=== PATIENT | female | born 1975 | race Caucasian/White ===

== ENCOUNTER 2019-08-15 14:21 | Outpatient (CLI) | payer OTHER, BC, SELFPAY ==
[2019-08-15 14:57] LABS: Basophils Percent Auto 0.3 % (0.2-1.2); Eosinophils Absolute Auto 0.1 K/mm3 (0-0.3); Eosinophils Percent Auto 1.4 % (0-4.4); Hematocrit 39.7 % (37.0-47.0); Immature Granulocyte Absolute 0.05 K/mm3 (0.00-0.031); Immature Granulocyte Percent A 0.5 % (0-0.5); Lymphocytes Absolute Auto 3.39 K/mm3 (0.9-3.2); Lymphocytes Percent Auto 37.1 % (18.3-44.2); Mean Corpuscular HGB Conc 32.7 g/dl (32-36); Mean Corpuscular Hemoglobin 26.4 pg (26-34); Mean Corpuscular Volume 80.5 fl (80-100); Mean Platelet Volume 8.8 fl (7.4-10.4); Monocytes Absolute Auto 0.3 K/mm3 (0.1-0.6); Monocytes Percent Auto 3.6 % (2.6-8.5); Neutrophils Absolute Auto 5.2 K/mm3 (1.3-6.7); Neutrophils Percent Auto 57.1 % (45.5-73.1); Platelet Count Result 357 k/mm3 (150-375); Red Blood Count 4.93 M/mm3 (4.2-5.4); Red Cell Distribution Width 14.2 % (11.5-14.5); White Blood Count 9.1 K/mm3 (4.5-10.0)
[2019-08-15 15:11] LABS: Blood Urea Nitrogen 12 mg/dL (7-17); Calcium 8.6 mg/dL (8.4-10.2); Carbon Dioxide 24 mmol/L (22-30); Chloride 104 mmol/L (98-107); Estimated Glomerular Filt Rate > 60; Glucose 135 mg/dL (65-105); Potassium 3.5 mmol/L (3.4-5.0); Sodium 138 mmol/L (137-145)
[2019-08-17 16:54] LABS: Immunoglobulin E 119 kU/L (<=114)
[2019-08-17 18:40] LABS: CMV IgM Antibody <30.00 AU/mL (<30.00)
[2019-08-17 22:29] LABS: Immunoglobulin G, Serum 912 mg/dL (600-1640); Immunoglobulin G1 430 mg/dL (382-929); Immunoglobulin G2 412 mg/dL (241-700); Immunoglobulin G3 39 mg/dL (22-178); Immunoglobulin G4 31.7 mg/dL (4.0-86.0)
[2019-08-18 12:24] LABS: CMV IgG Antibody >10.00 U/mL (<0.60)
[2019-08-18 18:33] LABS: EBV Nuclear Ab Interpretation Past; EBV Virus Capsid Ag IgM Ab <36.00 U/mL (<36.00)
== END 2019-08-15 14:22 | disposition home or self-care (01) ==
LOC: ANHLAB 14:26
PROVIDERS: Nurse Practitioner Family; PCP Family Medicine; Visit Provider Internal Medicine Critical Care Medicine
DX: J10.1 Influenza due to other identified influenza virus with other respiratory manifestations (principal); J45.909 Unspecified asthma, uncomplicated; B99.9 Unspecified infectious disease; Z87.09 Personal history of other diseases of the respiratory system
CPT/HCPCS: 36415; 80048; 82784; 82785; 82787; 85025; 86644; 86645; 86664; 86665

== ENCOUNTER 2019-10-22 10:29 | Outpatient (CLI) | payer OTHER, BC, SELFPAY ==
[2019-10-25 00:03] LABS: Immunoglobulin G, Serum 822 mg/dL (600-1640); Immunoglobulin G1 375 mg/dL (382-929); Immunoglobulin G2 366 mg/dL (241-700); Immunoglobulin G3 38 mg/dL (22-178); Immunoglobulin G4 29.9 mg/dL (4.0-86.0)
--- NOTE | 2019-10-28 14:08 | WPDPFTINT ---
PFT Interpretation PFT Interpretation: DOS: 10/22/2019 REQUESTING: Dr Murray REASON FOR TESTING: Shortness of breath PULMONARY FUNCTION TESTS Results are reproducible. Spirometry: FEV1 is 88% normal. FVC 84% normal. FEV 1% is normal. No change with bronchodilator. Lung volumes: TLC 84% normal. RV 73% normal. ERV is 21% low most likely due to increased BMI. Airway resistance is minimally increased 144%. Diffusion: DLCO 56% moderately reduced. Flow volume loop: Normal. IMPRESSION: Compared to a prior study 10/20/2015, values are similar. Normal spirometry and normal lung volumes with worsening of the diffusion defect. DLCO is 56% moderately reduced, 4 years ago 68% mildly reduced. isolated decrease in diffusion can be due to anemia, collagen vascular disease with pulmonary vascular involvement, chronic thromboembolic disease and early ILD. NIOX: Exhaled nitric oxide is 9 parts per billion, normal. No evidence of increased airway resistance. Rosette Murray MD
== END 2019-10-22 10:30 | disposition home or self-care (01) ==
PROVIDERS: PCP Family Medicine; Visit Provider Internal Medicine Critical Care Medicine
DX: J32.9 Chronic sinusitis, unspecified (principal); J45.909 Unspecified asthma, uncomplicated; R94.2 Abnormal results of pulmonary function studies
CPT/HCPCS: 36415; 82784; 82785; 82787; 86003; 94060; 94375; 94729; 95012

== ENCOUNTER 2019-10-23 09:47 | Outpatient (CLI) | payer OTHER, BC, SELFPAY ==
[2019-10-23 10:14] LABS: Blood Urea Nitrogen 15 mg/dL (7-17); Carbon Dioxide 24 mmol/L (22-30); Chloride 106 mmol/L (98-107); Estimated Glomerular Filt Rate > 60; Glucose 99 mg/dL (65-105); Potassium 4.5 mmol/L (3.4-5.0); Sodium 139 mmol/L (137-145)
== END 2019-10-23 09:48 | disposition home or self-care (01) ==
PROVIDERS: PCP Family Medicine; Visit Provider Nurse Practitioner Family
DX: M79.673 Pain in unspecified foot (principal); R20.2 Paresthesia of skin; R73.09 Other abnormal glucose
CPT/HCPCS: 36415; 80048; 82607; 83735

== ENCOUNTER 2019-12-26 09:54 | Outpatient (CLI) | payer OTHER, BC, SELFPAY ==
--- NOTE | 2019-12-26 11:00 | NEURO_ITS ---
Patient Number: [id number] Impression: # Complains of restless legs and pain in legs. # Normal motor and sensory nerve conduction study. # Normal needle/EMG exam without evidence of denervation potentials, fibrillations or myotonia. # Clinical correlation recommended. Nerve Conduction Studies Anti Sensory Summary Table Stim Site NR Peak (ms) P-T Amp (?V) Site1 Site2 Delta-P (ms) Dist (cm) Red (m/s) Left Sup Fibular Anti Sensory (Ant Lat Mall) 14 cm 3.6 20.5 14 cm Ant Lat Mall 3.6 16.0 44 Right Sup Fibular Anti Sensory (Ant Lat Mall) 14 cm 3.4 22.6 14 cm Ant Lat Mall 3.4 16.0 47 Left Sural Anti Sensory (Lat Mall) Calf 4.3 11.1 Calf Lat Mall 4.3 18.0 42 Right Sural Anti Sensory (Lat Mall) Calf 3.9 6.7 Calf Lat Mall 3.9 16.0 41 Motor Summary Table Stim Site NR Onset (ms) O-P Amp (mV) Site1 Site2 Delta-0 (ms) Dist (cm) Red (m/s) Left Peroneal Motor (Vastus Med) Ankle 4.6 4.6 Popit Ankle 8.8 38.0 43 Popit 13.4 4.4 Right Peroneal Motor (Vastus Med) Ankle 4.3 2.5 Popit Ankle 8.6 39.0 45 Popit 12.9 2.3 Left Tibial Motor (Abd Cardenas Brev) Ankle 4.8 2.8 Knee Ankle 10.1 41.0 41 Knee 14.9 1.9 Right Tibial Motor (Abd Cardenas Brev) Ankle 5.2 3.9 Knee Ankle 9.9 40.0 40 Knee 15.1 1.3 F Wave Studies NR F-Lat (ms) L-R F-Lat (ms) Left Peroneal (Mrkrs) (EDB) 52.03 0.77 Right Peroneal (Mrkrs) (EDB) 52.80 0.77 Left Tibial (Mrkrs) (Abd Hallucis) 51.98 0.35 Right Tibial (Mrkrs) (Abd Hallucis) 52.34 0.35 EMG Side Muscle Nerve Root Ins Act Fibs Amp Dur Recrt Comment Right AntTibialis Dp Br Fibular L4-5 Nml Nml Nml Nml Nml Right Gastroc Tibial S1-2 Nml Nml Nml Nml Nml Right Fibularis Long Sup Br Fibular L5-S1 Nml Nml Nml Nml Nml Right Flex Dig Long Tibial L5-S2 Nml Nml Nml Nml Nml Right Ext Dig Brev Dp Br Fibular L5, S1 Nml Nml Nml Nml Nml Left AntTibialis Dp Br Fibular L4-5 Nml Nml Nml Nml Nml Left Gastroc Tibial S1-2 Nml Nml Nml Nml Nml Left Fibularis Long Sup Br Fibular L5-S1 Nml Nml Nml Nml Nml Left Flex Dig Long Tibial L5-S2 Nml Nml Nml Nml Nml Left Ext Dig Brev Dp Br Fibular L5, S1 Nml Nml Nml Nml Nml Right QuadratusFem QuadFemoris L4-5, S1 Nml Nml Nml Nml Nml Left QuadratusFem QuadFemoris L4-5, S1 Nml Nml Nml Nml Nml MTDD
== END 2019-12-26 09:55 | disposition home or self-care (01) ==
LOC: ANHNEURO 09:56
PROVIDERS: PCP Family Medicine; Visit Provider Nurse Practitioner Family
DX: M79.673 Pain in unspecified foot (principal)
CPT/HCPCS: 95886; 95910

== ENCOUNTER 2020-02-13 14:03 | Outpatient (CLI) | payer OTHER, BC, SELFPAY ==
--- NOTE | ~2020-02-13 | US_ITS ---
EXAMINATION: US art doppler w press LE DATE: 02/13/2020 14:43 INDICATION: Raynaud's syndrome without gangrene. TECHNIQUE: Segmental pressures and plethysmographic and Doppler waveforms of the brachial and lower e xtremity arteries were obtained. COMPARISON: None. FINDINGS: Right and left brachial artery pressures of 130 mm Hg and 121 mm Hg, respectively, are concordant (no rmal difference <= 30 mmHg). The right high-thigh pressure index is 1.45 (normal > 1.2). The right ankle-brachial index (TIFFANIE) is 1 .02 (normal >= 0.9-1.0). The right great toe-brachial index (TBI) is 0.94 (normal >= 0.65). Arterial Doppler waveforms are biphasic from common femoral artery to the ankle. The left high-thigh pressure index is 1.36. The left TIFFANIE is 1.05. The left TBI is 1.03. Arterial Dopp ler waveforms are biphasic from common femoral artery to the ankle. IMPRESSION: 1. No significant arterial occlusive disease. Reviewed, dictated and finalized at location A.
== END 2020-02-13 14:04 | disposition home or self-care (01) ==
LOC: ANHIMG 14:06
PROVIDERS: PCP Family Medicine; Visit Provider Nurse Practitioner Family
DX: G62.9 Polyneuropathy, unspecified (principal); I73.00 Raynaud's syndrome without gangrene; L40.50 Arthropathic psoriasis, unspecified
CPT/HCPCS: 93923

== ENCOUNTER 2020-02-21 07:31 | Outpatient (CLI) | payer OTHER, BC, SELFPAY ==
--- NOTE | ~2020-02-21 | CT_ITS ---
EXAMINATION: CT chest high resolution wo ar DATE: 02/21/2020 07:50 INDICATION: Pulmonary fibrosis. Abnormal pulmonary function tests. Asthma. TECHNIQUE: Computed tomography (CT) of the chest was performed without intravenous contrast. The dose -length product was 760.96 mGy-cm. Automated exposure control and iterative reconstruction technique were employed. COMPARISON: CT dated 09/21/2018 FINDINGS: Heart size normal. No thoracic lymphadenopathy. No significant pleural or pericardial effus ion. No significant vascular abnormality. No focal airspace consolidation. No pneumothorax. No endobr onchial lesions. No pulmonary nodules or masses. No osteolytic or osteoblastic lesions are identified . Mild-moderate thoracic spondylosis. IMPRESSION: 1. No significant cardiopulmonary disease. Reviewed, dictated and finalized at location A.
== END 2020-02-21 07:32 | disposition home or self-care (01) ==
PROVIDERS: PCP Family Medicine; Visit Provider Internal Medicine Critical Care Medicine
DX: R94.2 Abnormal results of pulmonary function studies (principal)
CPT/HCPCS: 71250

== ENCOUNTER 2020-09-02 14:44 | Outpatient (CLI) | payer OTHER, BC, SELFPAY ==
--- NOTE | ~2020-09-02 | XR_ITS ---
XR knee RT 3V DATE: 09/02/2020 15:06 INDICATION: Right knee pain, generalized TECHNIQUE: 3 views, sunrise, AP and lateral COMPARISON: None FINDINGS: There is minimal periarticular spurring of the patella consistent with osteoarthritis. Join t spaces are preserved. No fracture or dislocation or joint effusion. No periosteal reaction or bone destruction. No radiopaq ue intra-articular loose body or chondrocalcinosis. IMPRESSION: Mild osteoarthritis at the patellofemoral joint Reviewed, dictated and finalized at location A.
== END 2020-09-02 14:45 | disposition home or self-care (01) ==
PROVIDERS: PCP Family Medicine; Visit Provider Nurse Practitioner Family
DX: M25.561 Pain in right knee (principal); M17.11 Unilateral primary osteoarthritis, right knee
CPT/HCPCS: 73562

== ENCOUNTER 2020-12-23 09:37 | Outpatient (CLI) | payer OTHER, BC, SELFPAY ==
--- NOTE | 2020-12-23 16:04 | P.PCNPFT_ITS ---
PFT Procedure Performed PFT Procedure Performed Spirometry with Pre/Post Bronchodilator Plethysmography (Lung Vol) Diffusing Cap (DLCO) Flow Vol Loop PFT Interpretation This is a pulmonary function test with pre and post-bronchodilator spirometry, plethysmography and diffusing capacity. The test was performed and results interpreted in accordance with the 2019 and 2005 ATS/ERS Task Force guidelines respectively using the Global Lung Function Initiative-2012 reference equations. Patient demonstrated good effort and cooperation. Reproducibility criteria were met. The quality of the pre bronchodilator spirometry maneuver was Grade B and post bronchodilator spirometry maneuver was Grade B. Findings: Spirometry:The contour of the inspiratory and expiratory flow tracing are normal. The pre bronchodilator FVC is 2.81 L, 71% predicted. The pre bronchodilator FEV1 is 2.21 L, 72% predicted. The FEV1: FVC ratio is 78%. The post bronchodilator FVC is 3.02 L, representing 7% increase. The post bronchodilator FEV1 is 2.48 L, representing a 12% increase. Plethysmography: The total lung capacity is 3.46 L, 64% predicted. Functional residual capacity is 0.77 L, 26% predicted. The residual volume is 0.61 L, 33% predicted. Diffusing capacity: The absolute diffusion capacity is 20.1, 84% predicted. Th e diffusing capacity corrected for alveolar volume is 5.39, 118% predicted. Impression: There is a mild restrictive ventilatory abnormality. The spirometry is normal without evidence of an obstructive abnormality. There is significant improvement after inhaling a single dose of albuterol. The diffusing capacity is normal. There are no prior studies for comparison
== END 2020-12-23 09:38 | disposition home or self-care (01) ==
PROVIDERS: PCP Family Medicine; Visit Provider Internal Medicine Critical Care Medicine
DX: J45.909 Unspecified asthma, uncomplicated (principal); R94.2 Abnormal results of pulmonary function studies
CPT/HCPCS: 94060; 94726; 94729

== ENCOUNTER 2020-12-30 14:06 | Outpatient (CLI) | payer OTHER, BC, SELFPAY ==
--- NOTE | ~2020-12-30 | XR_ITS ---
XR foot LT min 3V DATE: 12/30/2020 14:42 INDICATION: Polyarthralgia. Left foot pain. TECHNIQUE: 4 views COMPARISON: None FINDINGS: Plantar calcaneal enthesopathy, without associated erosive change or periostitis. There is mild osteoarthritis at the first metatarsophalangeal joint. No fracture, dislocation, periosteal reaction or bone destruction. IMPRESSION: Plantar calcaneal enthesopathy Mild osteoarthrosis at first metatarsophalangeal joint Reviewed, dictated and finalized at location B.
--- NOTE | ~2020-12-30 | XR_ITS ---
XR hand BI arthritis min 3V DATE: 12/30/2020 14:42 INDICATION: Bilateral hand pain. Polyarthralgia. TECHNIQUE: 4 views of each hand. COMPARISON: None FINDINGS: There is mild osteoarthritis at the left first metacarpophalangeal joint. No fracture or dislocation, periosteal reaction or bone destruction or erosive change of either hand is noted. IMPRESSION: Mild osteophyte is at left first metacarpophalangeal joint Reviewed, dictated and finalized at location B.
--- NOTE | ~2020-12-30 | XR_ITS ---
XR sacroiliac joints min 3V DATE: 12/30/2020 14:42 INDICATION: Polyarthralgia. Bilateral sacroiliac pain. TECHNIQUE: AP and bilateral oblique views COMPARISON: None FINDINGS: No fracture or dislocation, erosion or ankylosis at the sacroiliac joints. The pubic symphy sis is intact. Degenerative disc disease is noted in the lumbar spine, particularly at L4-5. IMPRESSION: No significant abnormality of the sacroiliac joints Reviewed, dictated and finalized at Location A. Reviewed, dictated and finalized at location B.
--- NOTE | ~2020-12-30 | XR_ITS ---
XR foot RT min 3V DATE: 12/30/2020 14:42 INDICATION: Polyarthralgia. Right foot pain. TECHNIQUE: 4 views COMPARISON: None FINDINGS: Plantar calcaneal enthesopathy without associated erosive change or periostitis. Mild osteophyte is at the first metatarsophalangeal joint. No fracture, dislocation, periosteal reaction or bone destruction or erosive change is noted. IMPRESSION: Plantar calcaneal enthesopathy Mild osteoarthrosis at first metatarsophalangeal joint Reviewed, dictated and finalized at location B.
== END 2020-12-30 14:07 | disposition home or self-care (01) ==
LOC: ANHIMG 14:12
PROVIDERS: PCP Family Medicine; Visit Provider Internal Medicine
DX: M19.032 Primary osteoarthritis, left wrist (principal); M19.031 Primary osteoarthritis, right wrist; M19.072 Primary osteoarthritis, left ankle and foot; M19.071 Primary osteoarthritis, right ankle and foot; M77.32 Calcaneal spur, left foot; M77.31 Calcaneal spur, right foot; M47.816 Spondylosis without myelopathy or radiculopathy, lumbar region
CPT/HCPCS: 72202; 73130; 73630

== ENCOUNTER 2021-01-15 10:02 | Outpatient (CLI) | payer OTHER, BC, SELFPAY ==
--- NOTE | ~2021-01-15 | XR_ITS ---
EXAMINATION: XR lumbar spine 2-3V DATE: 01/15/2021 10:29 INDICATION: Bilateral leg pain and numbness. TECHNIQUE: 3 views of lumbar spine were obtained. COMPARISON: Lumbar spine radiographs 06/05/2017 FINDINGS: There is 4 degrees levocurvature of thoracolumbar spine. There is mild chronic anterior wed ging of T11 vertebral body. There is mildly decreased disc height at T11-T12, T12-L1, and L2-L3 and m oderately decreased disc height at L3-L4 and L4-L5 with endplate remodeling. There is moderate to sev ere facet joint osteoarthritis in lower lumbar spine. IMPRESSION: 1. Stable moderate lumbar spondylosis. Reviewed, dictated and finalized at location B.
== END 2021-01-15 10:03 | disposition home or self-care (01) ==
PROVIDERS: PCP Family Medicine
DX: M54.9 Dorsalgia, unspecified (principal); L40.50 Arthropathic psoriasis, unspecified; M47.816 Spondylosis without myelopathy or radiculopathy, lumbar region
CPT/HCPCS: 72100

== ENCOUNTER 2021-04-02 10:08 | Outpatient (CLI) | payer OTHER, BC, SELFPAY ==
--- NOTE | ~2021-04-02 | XR_ITS ---
EXAMINATION: XR chest 2V DATE: 04/02/2021 10:33 INDICATION: Cough, unspecified TECHNIQUE: Frontal and lateral views of the chest are obtained COMPARISON: 05/10/2019 FINDINGS: The lungs are free of acute opacities. There is no pleural effusion or pneumothorax. The ca rdiomediastinal silhouette is normal. There is mild thoracic spondylosis. IMPRESSION: 1. No acute cardiopulmonary abnormality. Reviewed, dictated and finalized at location B.
== END 2021-04-02 10:09 | disposition home or self-care (01) ==
LOC: ANHIMG 10:12
PROVIDERS: PCP Family Medicine; Visit Provider Nurse Practitioner Family
DX: R05.9 Cough, unspecified (principal)
CPT/HCPCS: 71046

== ENCOUNTER → 2021-09-07 15:12 | Outpatient (CLI) | payer BC, SELFPAY ==
--- NOTE | ~2021-09-07 | US_ITS ---
EXAMINATION: US soft tissue head and neck EXAM DATE: 09/07/2021 15:29 INDICATION: R59.0 - Localized enlarged lymph nodes. TECHNIQUE: Multiple grayscale and Doppler images of the left-sided lateral neck area of concern were obtained (by a technologist who performed the scan) and subsequently reviewed. There is no prior she dy for comparison. FINDINGS: Scanning in the area of concern demonstrates small left internal jugular chain lymph nodes. No pathol ogically enlarged lymph nodes, or other mass identified. IMPRESSION: Left internal jugular chain lymph nodes well within normal size limits. Reviewed, dictated and finalized at location B. IMPRESSION: Left internal jugular chain lymph nodes well within normal size mendez its.
== END ==
PROVIDERS: PCP Family Medicine; Visit Provider Nurse Practitioner Family
DX: R59.0 Localized enlarged lymph nodes (principal)
CPT/HCPCS: 76536

== ENCOUNTER 2021-11-27 11:01 | Outpatient (CLI) | payer BC, SELFPAY ==
[2021-11-30 12:44] LABS: Endomysial Ab (IgA) Screen Negative (Negative)
[2021-12-13 15:53] LABS: Endomysial Additional Testing Not Indicated
== END 2021-11-27 11:02 | disposition home or self-care (01) ==
PROVIDERS: PCP Family Medicine; Visit Provider Internal Medicine Gastroenterology
DX: R19.7 Diarrhea, unspecified (principal)
CPT/HCPCS: 36415; 86255

== ENCOUNTER 2021-12-01 07:54 | Outpatient (CLI) | payer BC, SELFPAY ==
--- NOTE | 2021-12-01 18:02 | WPDPFTINT ---
PFT Procedure Performed PFT Procedure Performed Spirometry with Pre/Post Bronchodilator Plethysmography (Lung Vol) Diffusing Cap (DLCO) Flow Vol Loop PFT Interpretation This is a pulmonary function test with pre and post-bronchodilator spirometry, plethysmography and diffusing capacity. The test was performed and results interpreted in accordance with the 2019 and 2005 ATS/ERS Task Force guidelines respectively using the Global Lung Function Initiative-2012 reference equations. Patient demonstrated good effort and cooperation. Reproducibility criteria were met. The quality of the pre bronchodilator spirometry maneuver was Grade A and post bronchodilator spirometry maneuver was Grade A. Findings: Spirometry: The contour the inspiratory and expiratory flow tracing are normal. The pre bronchodilator FVC is 3.34 L, 89% predicted. The pre bronchodilator FEV1 is 2.58 L, 85% predicted. The pre bronchodilator FEV1: FVC ratio 77%. The post bronchodilator FVC is 3.20 L, representing a 4% decrease. The post bronchodilator FEV1 is 2.61 L, representing 1% increase. The post bronchodilator FEV1: FVC ratio is 82%. Plethysmography: The total lung capacity is 4.54 L, 84% predicted. The functional residual capacity is 1.81 L, 60% predicted. The residual volume is 1.20 L, 65% predicted. Diffusing capacity: The diffusing capacity unadjusted for hemoglobin and carboxyhemoglobin is 21.6, 91% predicted. Diffusing capacity adjusted for alveolar volume is 5.84, 129% predicted. In comparison to previous pulmonary function test on 12/23/2020 the post bronchodilator FVC is unchanged from 3.02 L to 3.20 L. The post bronchodilator FEV1 is unchanged from 2.48 L to 2.61 L. The total lung capacity is increased from 3.46 L to 4.54 L. The functional residual capacity is increased from 0.77 L to 1.81 L. The residual volume is increased from 0.61 L to 1.20 L. The diffusing capacity unadjusted for hemoglobin and carboxyhemoglobin is unchanged from 20.1 to 21.6. The diffusing capacity adjusted for alveolar volume is unchanged from 5.39 to 5.84. Impression: The spirometry is normal without evidence of an obstructive abnormality. There is no significant improvement after inhaling a single dose of albuterol. The lung volumes are normal. The diffusing capacity is normal. in comparison to prior pulmonary function test on 12/23/2020 there has been a greater than anticipated time dependent increase in the total lung capacity, functional residual capacity and residual volume with no change in the FVC, FEV1, or diffusing capacity. Clinical correlation is recommended
== END 2021-12-01 07:55 | disposition home or self-care (01) ==
LOC: ANHPFT 07:56
PROVIDERS: PCP Family Medicine; Visit Provider Internal Medicine Critical Care Medicine
DX: J45.909 Unspecified asthma, uncomplicated (principal)
CPT/HCPCS: 94060; 94375; 94726; 94729

== ENCOUNTER 2022-05-18 16:56 | Outpatient (CLI) | payer BC, SELFPAY ==
--- NOTE | ~2022-05-18 | XR_ITS ---
EXAMINATION: XR abdomen/kub 1V INDICATION: Unspecified abdominal pain, hematuria TECHNIQUE: Supine views of the abdomen were obtained on 2 radiographs. COMPARISON: Lumbar spine radiographs dated 01/15/2021 and SI joint radiographs dated 12/30/2020 FINDINGS: The bowel gas pattern is nonspecific. There is a moderate volume of colonic stool. There ar e phleboliths of the pelvis. A right upper quadrant calcification is consistent with cholelithiasis. The visualized lung bases are clear. IMPRESSION: 1. . No radiographic correlate for the patient's symptoms. Reviewed, dictated and finalized at location F. [employer]
== END 2022-05-18 16:57 | disposition home or self-care (01) ==
LOC: ANHIMG 16:59
PROVIDERS: PCP Family Medicine; Visit Provider Nurse Practitioner Family
DX: R10.9 Unspecified abdominal pain (principal)
CPT/HCPCS: 74018

== ENCOUNTER 2022-12-08 13:20 | Outpatient (CLI) | payer OTHER, SELFPAY ==
--- NOTE | ~2022-12-08 | XR_ITS ---
EXAMINATION: XR abdomen/kub 1V DATE: 12/08/2022 13:37 INDICATION: Rectal pain. TECHNIQUE: A supine view of the abdomen on 2 radiographs was obtained. COMPARISON: Abdomen radiographs 05/18/2022 FINDINGS: There are no dilated loops of bowel. There is a small volume of stool in the colon. There a re phleboliths in the pelvis. IMPRESSION: 1. Normal bowel gas pattern. Reviewed, dictated and finalized at location E.
== END 2022-12-08 13:21 | disposition home or self-care (01) ==
PROVIDERS: PCP Family Medicine; Visit Provider Nurse Practitioner Family
DX: K62.89 Other specified diseases of anus and rectum (principal)
CPT/HCPCS: 74018

== ENCOUNTER 2023-08-23 14:09 | Outpatient (CLI) | payer OTHER, SELFPAY ==
--- NOTE | ~2023-08-23 | XR_ITS ---
EXAMINATION: XR chest 2V 08/23/2023 14:43 INDICATION: Wheezing PROCEDURE: 2 view chest COMPARISON: Comparison to multiple prior studies sequentially, with oldest reviewed study dated 11/06. FINDINGS: The lungs are clear. The cardiomediastinal silhouette is within normal limits. There are no pleural effusions. There is no pneumothorax suspected. IMPRESSION: 1: NO ACUTE CARDIOPULMONARY DISEASE. Reviewed, dictated and finalized at location B.
== END 2023-08-23 14:10 ==
LOC: MICIMG 14:11
PROVIDERS: PCP Nurse Practitioner Adult Health; Visit Provider Nurse Practitioner Adult Health
DX: R06.2 Wheezing (principal)
CPT/HCPCS: 71046

== ENCOUNTER 2023-11-27 10:37 | Outpatient (CLI) | payer OTHER, SELFPAY ==
--- NOTE | ~2023-11-27 | XR_ITS ---
Right Shoulder Technique: AP and axillary views were obtained. Clinical History: Pain Findings: No fracture or dislocation is seen. Osseous alignment is anatomic. The glenohumeral and acr omioclavicular joint spaces are preserved. Soft tissues are unremarkable. Impression: Unremarkable right shoulder radiographs. Reviewed, dictated and finalized at [facility]. Impression: Unremarkable right shoulder radiographs.
== END 2023-11-27 10:38 ==
PROVIDERS: PCP Family Medicine; Visit Provider Nurse Practitioner Family
DX: M25.511 Pain in right shoulder (principal)
CPT/HCPCS: 73030

== ENCOUNTER 2024-03-04 14:07 | Emergency (ER) | payer OTHER, SELFPAY ==
--- NOTE | ~2024-03-04 | CT_ITS ---
CT abdomen pelvis w con Ordering provider: Fariha Rico History: 48 years Female with . RLQ pain, nausea, diarrhea . Comparison: None. Technique: CT abdomen and pelvis with IV and without oral contrast. Automated exposure control and it erative reconstruction technique were employed. The dose-length product was 1163.43 mGy-cm. 100 mL Om nipaque 350 was given IV. Findings: VISUALIZED LOWER CHEST: Normal. UPPER ABDOMINAL ORGANS: Liver: Fat infiltration. Gallbladder: Status post cholecystectomy. Spleen: Normal. Stomach/duodenum: Normal. Pancreas: Normal. Adrenals: Normal. Kidneys: Tiny cysts in both kidneys. PELVIC ORGANS: The bladder is underfilled. Tiny cysts in the right ovary the largest measures 1.8 cm. Irregularity of the outline of the uterus which may indicate fibroid measuring 4.7 cm.. Ultrasound ev aluation advised. BOWEL AND MESENTERY: Colon: Mild sigmoid diverticulosis without diverticulitis. Normal appendix. Small Bowel: Normal. No obstruction. Peritoneum/mesentery: No free air or free fluid. No mesenteric lymphadenopathy. RETROPERITONEUM: Normal aorta. No retroperitoneal lymphadenopathy. MUSCULOSKELETAL: Superficial soft tissues: The superficial soft tissues are normal. Bones: Age appropriate degenerative changes of the spine. Bilateral sacroiliacs. IMPRESSION: 1. No evidence of appendicitis, diverticulitis or intestinal obstruction. 2. Mild fat infiltration of the liver. 3. Highly suggestive fibroid uterus. Reviewed, dictated and finalized at location A.
--- NOTE | ~2024-03-04 | US_ITS ---
US transvaginal Ordering provider: Evi Harris PA-C History: . right lower quadrant pain . Comparison: None. Technique: endovaginal ultrasound of the pelvis (Doppler ultrasound interrogation techniques used as needed for this exam.) FINDINGS: CERVIX: Normal. UTERUS: Measures 7.6x 3.8 x 4.9 cm in length which is within normal limits and is anteverted. Hetero genous vascular area is seen in the anterior fundus area suggestive of a fibroid measuring 2.5 x 2.5 x 2.7 cm. ENDOMETRIUM: Normal in thickness measuring 4 mm. No endometrial masses, cysts or fluid. CUL DE SAC: No free fluid. RIGHT OVARY: Normal in size measuring 2.9x 2.5x 2.6 cm. Normal echotexture. Doppler vascular flow pre sent. Dominant follicle is seen measuring 2 cm. LEFT OVARY: Normal in size measuring 2.3x 1.4x 1.7 cm. Normal echotexture. Doppler vascular flow pres ent. ADNEXA: Normal. No mass. IMPRESSION: Fibroid of the uterus. Dominant right ovarian follicle. Follow-up advised. Otherwise, normal pelvic u ltrasound. Reviewed, dictated and finalized at location A. IMPRESSION: Fibroid of the uterus. Dominant right ovarian follicle. Follow-up advised. Othe rwise, normal pelvic ultrasound.
--- NOTE | 2024-03-04 14:09 | ED.ABDPAIN ---
HPI - Abdominal Pain General Chief Complaint: Abdominal Pain <BANDAR Hernandez Last Filed: 03/04/24 14:16> Stated Complaint: abd pain <BANDAR Hernandez Last Filed: 03/04/24 14:16> Time Seen by Provider: 03/04/24 14:09 <BANDAR Hernandez Last Filed: 03/04/24 14:16> Focused HPI: Patient is a 48 y/o female who presents to the ED with c/o RLQ abdominal pain. Patient reports pain began yesterday and present throughout mid abdomen. Pain has been constant today and more localized to RLQ. Reports nausea, diarrhea, cold chills. Denies vomiting, fevers, dysuria, hematuria. Has not taken anything for pain in the ED. Hx of UTIs, but states current pain does not feel similar. No hx of ovarian cysts. GENERAL: Well-appearing, obese with BMI of 36.7, and in no acute distress. HEAD: Normocephalic, atraumatic. CHEST: Clear to auscultation. ?No respiratory distress. HEART: Regular rate and rhythm.? ABD: Mild TTP in epigastric region. More focal TTP in RLQ. Normoactive BS. NEURO: ?Alert and oriented x3. Patient screened in triage and initial orders placed.? ?Additional care and disposition to be based upon?diagnostic testing and treatment. <BANDAR Hernandez Last Filed: 03/04/24 14:16> Source: patient <BANDAR Hernandez Last Filed: 03/04/24 14:16> Mode of arrival: ambulatory <BANDAR Hernandez Last Filed: 03/04/24 14:16> Limitations: no limitations <BANDAR Hernandez Filed: 03/04/24 14:16> Related Data Home Medications: Home Medications Medication Instructions Recorded Confirmed albuterol sulfate 90 mcg/actuation 2 puff inhalation Q4H PRN 05/02/19 02/12/24 aerosol inhaler apremilast 30 mg tablet (Otezla) 30 mg PO BID 10/23/19 02/12/24 leflunomide 10 mg tablet 10 mg PO DAILY 02/17/21 02/12/24 fexofenadine 180 mg tablet 180 mg PO DAILY 03/04/22 02/12/24 (Debbie Allergy) <Fariha Rico PA-C - Last Filed: 03/04/24 14:16> Allergies/Adverse Reactions: Allergies Allergy/AdvReac Type Severity Reaction Status Date / Time Sulfa (Sulfonamide Allergy Mild Rash Verified 03/04/24 17:29 Antibiotics) <Fariha Rico PA-C - Last Filed: 03/04/24 14:16> Review of Systems Review of Systems: CONSTITUTIONAL: Denies fever GASTROINTESTINAL: Reports abdominal pain, nausea, and diarrhea. Denies vomiting GENITOURINARY: Denies dysuria or hematuria. <Evi Harris PA-C - Last Filed: 03/04/24 20:24> All systems reviewed & are unremarkable except as noted in HPI and below <Evi Harris PA-C - Last Filed: 03/04/24 20:24> [facility] Past Medical History Medical History: Medical History Anal fissure Asthma BMI 29.0-29.9,adult BMI 33.0-33.9,adult BMI 35.0-35.9,adult BMI 36.0-36.9,adult BMI 37.0-37.9, adult Chronic pain History of frequent upper respiratory infection Narcolepsy Psoriatic arthritis Rectal Pain Recurrent sinus infections Right hamstring muscle strain Screening for lipoid disorders Screening for thyroid disorder Wheezing <BANDAR Hernandez Last Filed: 03/04/24 14:16> Surgical History Surgical History: Surgical History H/O prior ablation treatment History of cholecystectomy History of tonsillectomy and adenoidectomy Status post LASIK surgery of both eyes <BANDAR Hernandez Last Filed: 03/04/24 14:16> Social History Social History: Social History Smoking status: Former smoker Tobacco type: cigarettes Second hand tobacco smoke exposure: No Smoking end date: 05/29/91 Alcohol intake: current Substance use: current Substance use type: marijuana Other substance usage details: Medical card, edibles Lack of Transportation: No Lack of Food: Never True Curren
[2024-03-04 14:11] VITALS: BP 143/90; PULSE 85; RESP 18; TEMP 36.4; O2SAT 100
[2024-03-04] MEDS: HYDROcodone/acetaminophen (*CRX) 5-325 MG TABLET 1 TAB PO (14:23)
[2024-03-04] MEDS: ONDANSETRON INJ 4 MG/2 ML VIAL IV PUSH (14:23)
[2024-03-04 14:31] LABS: Basophils Percent Auto 0.2 % (0.2-1.2); Eosinophils Percent Auto 0.5 % (0-4.4); Hematocrit 42.1 % (37.0-47.0); Hemoglobin 13.8 g/dL (12.0-15.0); Immature Granulocyte Absolute 0.02 K/mm3 (0.00-0.031); Immature Granulocyte Percent A 0.3 % (0-0.5); Lymphocytes Absolute Auto 1.29 K/mm3 (0.9-3.2); Lymphocytes Percent Auto 19.8 % (18.3-44.2); Mean Corpuscular HGB Conc 32.8 g/dl (32-36); Mean Corpuscular Hemoglobin 26.6 pg (26-34); Mean Corpuscular Volume 81.3 fl (80-100); Mean Platelet Volume 8.7 fl (7.4-10.4); Monocytes Absolute Auto 0.3 K/mm3 (0.1-0.6); Monocytes Percent Auto 4.8 % (2.6-8.5); Neutrophils Absolute Auto 4.9 K/mm3 (1.3-6.7); Neutrophils Percent Auto 74.4 % (45.5-73.1); Platelet Count Result 273 k/mm3 (150-375); Red Blood Count 5.18 M/mm3 (4.2-5.4); Red Cell Distribution Width 15.4 % (11.5-14.5); White Blood Count 6.5 K/mm3 (4.5-10.0)
[2024-03-04 14:40] LABS: Lactic Acid Reflex 1.6 mmol/L (0.7-2.0)
[2024-03-04 14:41] LABS: Alanine Aminotransferase 23 U/L (6-35); Albumin Level 4.4 g/dL (3.5-5.1); Alkaline Phosphatase 57 U/L (38-126); Anion Gap 10 mmol/L (4-12); Aspartate Amino Transferase 31 U/L (14-36); Bilirubin,Total 0.3 mg/dL (0.2-1.3); Blood Urea Nitrogen 15 mg/dL (7-17); Calcium 8.7 mg/dL (8.4-10.2); Carbon Dioxide 21 mmol/L (22-30); Chloride 104 mmol/L (98-107); Estimated CRCL calculation 97 ml/min; Estimated Glomerular Filt Rate > 60; Glucose 120 mg/dL (65-110); Lipase 350 U/L (23-300); Potassium 3.3 mmol/L (3.4-5.0); Sodium 135 mmol/L (137-145)
[2024-03-04 14:48] LABS: Add Urine Microscopic? NO; Appearance Urine Clear (Clear); Bilirubin Urine Negative (Negative); Blood Urine Negative (Negative); Color Urine Yellow (Yellow); Glucose Urine UA Negative (Negative); Ketones Urine Negative (Negative); Leukocyte Esterase Ur Negative LEU/UL (Negative); Nitrate Urine Negative (Negative); Protein Urine Negative (Negative); Specific Grav Ur 1.022 (1.001-1.035); Urobilinogen Urine 0.2 mg/dL (<2.0); pH Urine 5.5 (5.0-9.0)
--- NOTE | 2024-03-04 17:18 | PC.NURSE ---
Lab contacted to add on additional blood work
[2024-03-04 17:26] VITALS: BP 122/81; PULSE 85; RESP 16; TEMP 36.6; O2SAT 98
[2024-03-04] MEDS: POTASSIUM CHLORIDE 20 MEQ ER TABLET 40 MEQ PO (18:11)
[2024-03-04 18:12] VITALS: BP 125/76; PULSE 98; RESP 16; O2SAT 99
[2024-03-04] MEDS: MORPHINE SULFATE (*CRX) 4 MG/ML INJ IV PUSH (18:49)
[2024-03-04 18:54] VITALS: BP 146/105; PULSE 90; RESP 16; O2SAT 98
[2024-03-04 20:26] VITALS: BP 129/80; PULSE 91; RESP 15; O2SAT 97
== END 2024-03-04 20:28 | disposition home or self-care (01) ==
PROVIDERS: Physician Assistant; Emergency Provider Physician Assistant; PCP Family Medicine
DX: R10.31 Right lower quadrant pain (principal); E87.6 Hypokalemia; J45.909 Unspecified asthma, uncomplicated; L40.50 Arthropathic psoriasis, unspecified; Z87.891 Personal history of nicotine dependence; Z90.49 Acquired absence of other specified parts of digestive tract; Z79.899 Other long term (current) drug therapy; D25.9 Leiomyoma of uterus, unspecified; K76.0 Fatty (change of) liver, not elsewhere classified
CPT/HCPCS: 36415; 74177; 76830; 80053; 81003; 83605; 83690; 83735; 85025; 96374; 96375; 99284; A9270; J2270; J2405; Q9967

== ENCOUNTER 2024-08-16 08:02 | Outpatient (CLI) | payer BC, OTHER, SELFPAY ==
--- OUTSIDE RECORDS SUMMARY | 2024-08-16 08:18 | XMS_ITS | Clinical Summary ---
Author Organization [facility] Address [facility] [place] [address] Care Team Providers Care Fiberglass Model Maker Name Role Phone Chepe Villagomez MD Primary Care Provider [phone] Allergies Active Allergy Reactions Criticality Noted Date Comments Sulfa Antibiotics Other (see comment) Unsure of reaction Medications dextroamphetamin e ER (DEXEDRINE) 15 MG 24 hr capsule 2 (two) times daily. 10/15/2021 Active semaglutide (OZEMPIC) 2 MG/1.5ML injection (PEN) weekly. Acti ve albuterol (ACCUNEB) 0.63 MG/3ML nebulizer solution Inhale 0.63 mg into the lungs as needed. Active Apremilast (OTEZLA) 30 MG Tab every 12 (twelve) hours. Active celecoxib (CELEBREX) 200 MG capsule daily. 01/01/2022 Active leflunomide (ARAVA) 20 MG tablet daily. 12/07/2021 Active vitamin D2, ergocalciferol, (DRISDOL) 04091 UNITS capsule daily. Active sertraline (ZOLOFT) 25 MG tablet Take 25 mg by mouth daily. 01/11/2022 Active SUMAtriptan (IMITREX) 100 MG tablet as needed. Active Immunizations Name Administration Dates Next Due MODERNA COVID-19 (12+) MRNA, LNP-S, PF, 100 MCG/ 0.5 ML DOSE 03/27/2021,08/18/2020,07/09/2020 Social History Tobacco Use Types Packs/Day Years Used Date Smoking Tobacco: Never Smokeless Tobacco: Never Comments:smoked for 3mos i le in college Alcohol Use Standard Drinks/Week Comments Never 0 (1 standard drink = 0.6 oz pur e alcohol) Comments No Sex and Gender Information Value Date Recorded Sex Assigned at Not on file Legal Sex Female 12:49 PM CDT Gender Identity Not on file Sexual Orientation Not on file Last Filed Vital Signs Vital Sign Reading Time Taken Comments Blood Pressure 127/92 02/01/2022 11:25 AM CDT Pulse 81 02/01/2022 11:25 AM CDT Temperature 36.4 C (97.5 F) 02/01/2022 11:14 AM CDT Respiratory Rate 18 02/01/2022 11:25 AM CDT Oxygen Saturation 98% 02/01/2022 11:25 AM CDT Inhaled Oxygen Concentration - - Weight 86.2 kg (190 lb) 01/28/2022 11:43 AM CDT Height 167.6 cm (5' 6 ) 01/28/2022 11:43 AM CDT Body Mass Index 30.67 01/28/2022 11:43 AM CDT Plan of Treatment Health Maintenance Due Date Last Done Comments Cervical Cancer Screening Pa p Smear (Age 30 to 64) Every 3 Years 1973 Annual Physical 1976 Hepatitis C 11/18/1991 DTaP, Tdap and Td Vaccines ( 1 - Tdap) 1992 Hepatitis B Vaccines (1 of 3 - 19+ 3-dose series) 1992 Cervical Cancer Screening Pa p with HPV Testing (Age 30 to 64) Every 5 Years 11/18/2003 Cervical Cancer Screening wi th HPV 11/18/2003 Mammogram Screening 2013 Zoster Vaccines (1 of 2) 11/18/2023 COVID-19 Vaccine ( - 2023-2 5 season) 2024 03/27/2021, 08/18/2020, 07/09/2020 Influenza Adult (#1) 2024 Colorectal Cancer Screening Colonoscopy (10 Years) 02/02/2032 02/01/2022, 02/01/2022 Meningococcal B Vaccine Aged Out No l onger eligible based on patient's age to complete this topic Meningococcal Vaccine Aged Out No malik abdiel eligible based on patient's age to complete this topic Pneumococcal Vaccine: Pediatrics (0 to 5 Years) and At-Risk Patients (6 to 64 Years) Aged Out No longer eligible b ased on patient's age to complete this topic RSV Immunizations Under 20 Months Aged Out No longer eligible b ased on patient's age to complete this topic Procedures Procedure Name Priority Date/Time Associated Diagnosis Comments COLONOSCOPY Routine 02/01/2022 10:01 AM CDT from Last 3 Months or Most Recently Relevant to Health Maintenance Insurance [employer] Care Teams Fiberglass Model Maker Relationship Specialty Start Date End Date Chepe Villagomez MD [address] [address] PCP - General FAMILY PRACTICE 02/01/22
--- OUTSIDE RECORDS SUMMARY | 2024-08-16 08:18 | XMS_ITS | Clinical Summary ---
Author Organization [employer] [facility] Address [address] [place] [address] Care Team Providers Care Industrial Paramedic Name Role Phone Chepe Villagomez MD Primary Care Provider Allergies Active Allergy Reactions Criticality Noted Date Comments Sulfa (Sulfonamide Antibiotics) Other (See Comments) 10/17/2012 Medications albuterol (PROVENTIL,VENTOL IN) 0.63 mg/3 mL Solution for Nebulization Take 0.63 mg by inhalation one time only. Active SUMAtriptan (IMITREX) 100 mg tablet Take 1 Tab (100 mg) by mouth every 2 hours as needed for Migraine (Not to exceed 2 doses per 24 hour period). 12 Tab 11 5 Active dextroamphetamine (DEXEDRINE SPANSULE) 15 mg Sustained Release capsule Take 1-3 Caps (15-45 mg) by mouth daily. 90 Cap 0 5 Active Active Problems Problem Noted Date Diagnosed Date Depressive disorder, not elsewhere classified Migraine without aura, witho ut mention of intractable migraine without mention of status migrainosus 04/10/2012 Narcolepsy without cataplexy(347.00) 06/01/2009 Family History * Patient is adopted Relation Name Status Comments Father Other Mother Other Social History Tobacco Use Types Packs/Day Years Used Date Smoking Tobacco: Never Smokeless Tobacco: Never Alcohol Use Standard Drinks/Week Comments Yes 0 (1 standard drink = 0.6 oz pur e alcohol) rare Comments Unknown Sex and Gender Information Value Date Recorded Sex Assigned at Not on file Legal Sex Female 3:58 AM SMALL BUSINESS REPRESENTATIVE Gender Identity Not on file Sexual Orientation Not on file Occupation Industry Job Start Date Job End Date Not on file Not on file Not on file Not on file Not on file Not on file Not on file Not on file Last Filed Vital Signs Vital Sign Reading Time Taken Comments Blood Pressure 112/70 11/26/2014 10:55 AM CDT Pulse 76 11/26/2014 10:55 AM CDT Temperature - - Respiratory Rate 14 04/24/2013 9:39 AM SMALL BUSINESS REPRESENTATIVE Oxygen Saturation - - Inhaled Oxygen Concentration - - Weight 113.9 kg (251 lb) 11/26/2014 10:55 AM CDT Height 170.2 cm (5' 7 ) 11/26/2014 10:55 AM CDT Body Mass Index 39.31 11/26/2014 10:55 AM CDT Plan of Treatment Health Maintenance Due Date Last Done Comments DTAP/TDAP/TD VACCINES (1 - Tdap) 1992 HEPATITIS B VACCINES (1 of 3 - 19+ 3-dose series) 10/28 PAP SMEAR 1994 CERVICAL CANCER SCREENING 11/18/2003 HPV/Cotest 11/18/2003 PAP SMEAR 11/18/2003 BREAST CANCER SCREENING 2013 COLORECTAL SCREENING 2018 Colorectal Cancer Screening 2018 FIT-DNA Q 3 years 2018 FIT/FOBT Q 1 year 2018 Flex Sig/CT Colonography Q 5 years 2018 ZOSTER VACCINE (1 of 2) 11/18/2023 INFLUENZA VACCINE (#1) 2023 Preventative Visit- Commercial 05/29/2024 Insurance [address] [address] [facility] [employer] Care Teams Industrial Paramedic Relationship Specialty Start Date End Date Chepe Villagomez MD [address] [place] [address] PCP - General Family Practice 10/17/12
--- OUTSIDE RECORDS SUMMARY | 2024-08-16 08:18 | XMS_ITS | Clinical Summary ---
Author Organization [facility] Address [address] [facility] [place] [address] Care Team Providers Care Animal Behaviourist Name Role Phone Yaya German MD Primary Care Provider [phone] Source Comments [facility],non-owned Affiliates and Associated Physician Practices is amultiple site organization consisting of ambulatory clinics and hospital sitesin [place], [place], [place] and [place]. This disclosure is being madepursuant to the Care Everywhere program and may not contain all information available regarding this patient. Last updated 18.[facility] Social History Tobacco Use Types Packs/Day Years Used Date Smoking Tobacco: Never Assessed Sex and Gender Information Value Date Recorded Sex Assigned at Not on file Gender Identity Not on file Sexual Orientation Not on file Plan of Treatment Health Maintenance Due Date Last Done Comments COLOGUARD (AGES 45-75) - COL ON CA SCREENING 1973 COLON MONITORING 1973 COLONOSCOPY - COLON CA SCREENING 1973 CT COLONOGRAPHY - COLON CA SCREENING 1973 Colorectal Cancer Screening 1973 FIT - COLON CA SCREENING 1973 FLEX SIG - COLON CA SCREENING 1973 LIPID TESTING 1973 MAMMOGRAM 1973 PAP SMEAR 1973 HIV SCREENING 1988 HEPATITIS C SCREENING 11/13/1991 DTAP/TDAP/TD VACCINES (1 - Tdap) 1992 HEPATITIS B VACCINE (1 of 3 - 19+ 3-dose series) 1992 PNEUMOCOCCAL VACCINE 50+ (1 of 1 - PCV) 11/18/2023 ZOSTER VACCINE (1 of 2) 11/18/2023 COVID-19 VACCINE (1 - 2023-2 5 season) 2024 INFLUENZA VACCINE (#1) 2024 DEPRESSION SCREENING 05/29/2024 HIB VACCINE Aged Out No longer eligi ble based on patient's age to complete this topic HPV VACCINE Aged Out No longer eligi ble based on patient's age to complete this topic MENINGOCOCCAL (Group B) VACC INE SHARED DECISION-MAKING Aged Out No longer eligibl e based on patient's age to complete this topic MENINGOCOCCAL GROUPS A/C/Y/W VACCINE Aged Out No longer eligible b ased on patient's age to complete this topic PNEUMOCOCCAL VACCINE Aged Out No long er eligible based on patient's age to complete this topic Care Teams Animal Behaviourist Relationship Specialty Start Date End Date Yaya German MD [address] [place] [address] PCP - General 10/22/08
--- OUTSIDE RECORDS SUMMARY | 2024-08-16 08:19 | XMS_ITS | Encounter Summary ---
Author Organization [employer] Address [address] [place] [address] Care Team Providers Care Slicing Machine Operator/Tender Name Role Phone Chepe Villagomez MD Primary Care Provider [phone] Encounter Details Date Type Department Care Team (Latest Contact Info) Description 02/21/2001 Outpatient Historical [facility] RADIOLOGY Yaya German MD [address] [place] [id number] Degeneration of thoracic or thoracolumbar intervertebral disc (Primary Dx) Social History Tobacco Use Types Packs/Day Years Used Date Smoking Tobacco: Never Assessed Comments Unknown Sex and Gender Information Value Date Recorded Sex Assigned at Not on file Legal Sex Female 3:58 AM SR. OPERATIONS MANAGER Gender Identity Not on file Sexual Orientation Not on file documented as of this encounter Plan of Treatment Not on file documented as of this encounter Visit Diagnoses Diagnosis Degeneration of thoracic or thoracolumbar intervertebral disc- Primary documented in this encounter Care Teams Slicing Machine Operator/Tender Relationship Specialty Start Date End Date Chepe Villagomez MD [address] [place] [phone] PCP - General Family Practice 10/17/12 documented as of this encounter
--- OUTSIDE RECORDS SUMMARY | 2024-08-16 08:19 | XMS_ITS | Encounter Summary ---
Author Organization [employer] Address [address] [place] [address] Care Team Providers Care Packer Denture Name Role Phone Chepe Villagomez MD Primary Care Provider [phone] Encounter Details Date Type Department Care Team (Latest Contact Info) Description 09/23/2004 Outpatient Historical HIS OBSERVATION IN BED Yousif Mckeon MD [address] [address] CHOLELITH W CHOLECYS NEC (Primary Dx) Social History Tobacco Use Types Packs/Day Years Used Date Smoking Tobacco: Never Assessed Comments Unknown Sex and Gender Information Value Date Recorded Sex Assigned at Not on file Legal Sex Female 3:58 AM MEDICAL ONCOLOGIST Gender Identity Not on file Sexual Orientation Not on file documented as of this encounter Plan of Treatment Not on file documented as of this encounter Visit Diagnoses Diagnosis Calculus of gallbladder with other cholecystitis, without mention of obstruction- Primary documented in this encounter Care Teams Packer Denture Relationship Specialty Start Date End Date Chepe Villagomez MD [address] [place] [address] PCP - General Family Practice 10/17/12 documented as of this encounter
--- OUTSIDE RECORDS SUMMARY | 2024-08-16 08:19 | XMS_ITS | Encounter Summary ---
Author Organization [facility] Address [address] [place] [address] Care Team Providers Care Composition Siding Worker Name Role Phone Chepe Villagomez MD Primary Care Provider [phone] Encounter Details Date Type Department Care Team (Late st Contact Info) Description 07/13/2007 Outpatient Historical [facility] RADIOLOGY Colby German MD [address] [place] [phone] Lumbago Social History Tobacco Use Types Packs/Day Years Used Date Smoking Tobacco: Never Assessed Comments Unknown Sex and Gender Information Value Date Recorded Sex Assigned at Not on file Legal Sex Female 3:58 AM GREY WASHER Gender Identity Not on file Sexual Orientation Not on file documented as of this encounter Plan of Treatment Not on file documented as of this encounter Procedures Procedure Name Priority Date/Time Associated Diagnosis Comments MRI LUMBAR WO CONTRAST Timed Study 07/13/2007 2:18 PM GREY WASHER documented in this encounter Results * MRI LUMBAR WO CONTRAST (07/13/2007 2:18 PM GREY WASHER) Anatomical Region Laterality Modality Spine Other 07/13/2007 2:18 PM GREY WASHER Narrative 07/13/2007 4:23 PM GREY WASHER [facility] [address] [address] Admit Date: 07/13/2007 KARIME ZENG Sex: F Admit Prov: COLBY GERMAN Date: 1975 Primary Care Prov: COLBY GERMAN CMRN: [id number] [id number] Ordering Prov: N/A Accession Number: [id number] Interpretation EXAMINATION: MRI OF LUMBAR SPINE WITHOUT CONTRAST, 07/13/2007 Clinical History: Back pain. Findings: Examination of the lumbar spine is compared to previous examination May 10, 2006. Findings: Examination of the lumbar spine fails to demonstrate evidence of fracture, dislocation, or subluxation. There is mild loss of disc hydration at L2-L3 and L3-L4. There is small right lateralizing herniated nucleus pulposus at L3-L4, similar to prior study. There is no nerve root compression. There is minimal narrowing of the bony spinal canal at L2-L3 and L3-L4. Neural foramina are widely patent. No inflammatory changes are identified. Impression: Small right lateralizing herniated nucleus pulposis at L3-L4, similar to prior study. . Dictated by: Tomás PAINTER 07/13/2007 15:52 Electronically signed by: Tomás PAINTER 07/13/2007 16:23 Transcribed: 07/13/2007 16:08 SMM Procedure Note Provider, Historical - 07/13/[address] [address] Admit Date: 07/13/2007 KARIME ZENG Sex: F Admit Prov: COLBY GERMAN Date: 1975 Primary Care Prov: COLBY GERMAN CMRN: [id number] [id number] Ordering Prov: N/A Interpretation EXAMINATION: MRI OF LUMBAR SPINE WITHOUT CONTRAST, 07/13/2007 Clinical History: Back pain. Findings: Examination of the lumbar spine is compared to previous examination May 10, 2006. Findings: Examination of the lumbar spine fails to demonstrateevidence of fracture, dislocation, or subluxation. There is mild loss of dischydration at L2-L3 and L3-L4. There is small right lateralizing herniatednucleus pulposus at L3-L4, similar to prior study. There is no nerve root compression. There is minimal narrowing of the bony spinal canal atL2-L3 and L3-L4. Neural foramina are widely patent. No inflammatory changes areidentified. Impression: Small right lateralizing herniated nucleus pulposis at L3-L4, similarto prior study. . Dictated by: Tomás PAINTER 07/13/2007 15:52 Electronically signed by: Tomás PAINTER 07/13/2007 16:23 Transcribed: 07/13/2007 16:08 SMM Colby German MD MR ORDERABLES Final Result documented in this encounter Visit Diagnoses Diagnosis Lumbago documented in this encounter Care Teams Composition Siding Worker Relationship Specialty Start Date End Date Chepe Villagomez MD [address] [place] [address] PCP - General Family Practice 10/17/12 documented as of this encounter
--- OUTSIDE RECORDS SUMMARY | 2024-08-16 08:19 | XMS_ITS | Encounter Summary ---
Author Organization [email or web address] Address [address] Jensen: [place] [address] Care Team Providers Care Fur Sewer Name Role Phone Chepe Villagomez MD Primary Care Provider [phone] Encounter Details Date Type Department Care Team (Late st Contact Info) Description 12/31/1992 Outpatient Historical [facility]ol[facility] Boykin Social History Tobacco Use Types Packs/Day Years Used Date Smoking Tobacco: Never Assessed Comments Unknown Sex and Gender Information Value Date Recorded Sex Assigned at Not on file Legal Sex Female 3:58 AM ELECTRONIC TECHNOLOGIST Gender Identity Not on file Sexual Orientation Not on file documented as of this encounter Plan of Treatment Not on file documented as of this encounter Visit Diagnoses Not on filedocumented in this encounter Care Teams Fur Sewer Relationship Specialty Start Date End Date Chepe Villagomez MD [address] [place] [phone] PCP - General Family Practice 10/17/12 documented as of this encounter
--- OUTSIDE RECORDS SUMMARY | 2024-08-16 08:19 | XMS_ITS ---
Author Organization [facility] Address [address] [facility] [address] [place], [place] [id number] Care Team Providers Care Sorority Mother Name Role Phone Jackie Villagomezn Primary Care Provider Denise Melchor Unavailable [phone] Dayna Page Unavailable [phone] ALLERGIES Allergen (clinical drug ingredient) Drug/Non Drug Allergy documented on EMR Reaction Allergy Type Onset Date Status sulfa (uncoded) Unknown Allergy Acti ve RESULTS Component Value Reference Range Notes AST (SGOT) Reviewed date:03/30/2024 10:44:27 PM Interpretation: Performing Lab:[facility], [address] [place] [address], Phone - [phone], [facility]Report: AST (SGOT) 16 0-40 IU/L Creatinine, Serum Reviewed date:03/30/2024 10:44:27 PM Interpretation: Performing Lab:[facility], [address] [place] [address], Phone - [phone], [facility]Report: Creatinine 0.69 0.57-1.00 mg/dL eGFR 106 >59 mL/min/1.73 ALT (SGPT) Reviewed date:03/30/2024 10:44:27 PM Interpretation: Performing Lab:[facility] [place], [address] [place] [address], Phone - [phone], [facility] Notes/Report: ALT (SGPT) 18 0-32 IU/L CBC With Differential/Platel et Reviewed date:03/30/2024 10:44:27 PM Interpretation: Performing Lab:[facility] [place], [address] [place] [address], Phone - [phone], [facility] Notes/Report: WBC 8.6 3.4-10.8 x10E3/uL RBC 5.08 3.77-5.28 x10E6/uL Hemoglobin 13.2 11.1-15.9 g/dL Hematocrit 41.6 34.0-46.6 % MCV 82 79-97 fL MCH 26.0 26.6-33.0 pg MCHC 31.7 31.5-35.7 g/dL RDW 14.5 11.7-15.4 % Platelets 312 150-450 x10E3/uL Neutrophils 56 Not Estab. % Lymphs 38 Not Estab. % Monocytes 4 Not Estab. % Eos 1 Not Estab. % Basos 1 Not Estab. % Immature Cells Neutrophils (Absolute) 4.8 1.4-7.0 x10E3/uL Lymphs (Absolute) 3.3 0.7-3.1 x10E3/uL Monocytes(Absolute) 0.3 0.1-0.9 x10E3/uL Eos (Absolute) 0.1 0.0-0.4 x10E3/uL Baso (Absolute) 0.0 0.0-0.2 x10E3/uL Immature Granulocytes 0 Not Estab. % Immature Grans (Abs) 0.0 0.0-0.1 x10E3/uL NRBC Hematology Comments: Sed Rate - Westergren Reviewed date:03/30/2024 10:44:27 PM Interpretation: Performing Lab:[facility] [place], [address] [place] [address], Phone - [phone], [facility] Notes/Report: Sedimentation Rate-Westergren 35 0-40 mm/hr C-Reactive Protein, Quant Reviewed date:03/30/2024 10:44:27 PM Interpretation: Performing Lab:[facility], [address] [place] [address], Phone - [phone], [facility] - [facility] Notes/Report: C-Reactive Protein, Quant 15 0-10 mg/L VITAMIN D, 25-HYDROXY, LC/MS /MS Reviewed date:04/01/2024 08:17:59 AM Interpretation: Performing Lab:[facility] [place], [address] [facility], [place], Phone - [phone], Director - Karthik Notes/Report: Vitamin D, 25-Hydroxy 17.7 30.0-100.0 ng/mL Vitamin D deficiency has been defined by the [place] of Medicine and an Endocrine Society practice guideline as a level of serum 25-OH vitamin D less than 20 ng/mL (1,2). The Endocrine Society went on to further define vitamin D insufficiency as a level between 21 and 29 ng/mL (2). 1. IOM ([place] of Medicine). 2010. Dietary reference intakes for calcium and D. [place]: The National [employer]Cell[employer] Press. 2. Jackson MF, Slick CLAYTON, Frantz LUCERO, et al. Evaluation, treatment, and prevention of vitamin D deficiency: an Endocrine Society clinical practice guideline. JCEM. 2010; 96(7):1911-30. REASON FOR VISIT 3 mo f/u MEDICATIONS Medication SIG (Take, Route, Frequency, Duration) Notes Start Date End Date Status Otezla 30 mg TAKE 1 TABLET BY CHANI TH TWICE DAILY Active Zoloft 20 mg/mL 2.5 mL orally once a day Active dextroamphetamine 15 mg 1 cap(s) orally once a day (in the morning) Active albuterol 2.5 mg/3 mL (0.083%) 3 mL by n ebulizer every 6 hours Active Debbie Active leflunomide 20 mg 1 tab(s) orally once a day Active Ventolin HFA 90 mcg/inh 2 puff(s) inhale d every 6 hours Active ergocalciferol 50,000 intl units 1 cap(s) orally ONCE A WEEK Active Imitrex 100 mg 1 tab(s) orally once Active PROBLEMS Problem Type ICD Code Onset Dates Problem Status W/U Status Risk SNOMED Code Notes 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 (232984099) Problem 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 VITAL SIGNS BMI 36.63 kg/m2 03/29/2024 Blood pressure systolic 126 mm Hg 03/29/20 24 Blood pressure diastolic 81 mm Hg 024 Heart Rate 89 /min 03/29/2024 Height 66 in 03/29/2024 Weight 227 lbs 03/29/2024 Encounters Encounter Location Date Provider Diagnosis [facility], [address], [address] [place], [place] [phone] 03/29/2024 Dayna Page Psoriatic arthritis L40.50 ; Vitamin D deficiency E55.9 ; Paresthesia R20.2 ; Other senior care (current) drug therapy Z79.899 ; Other intervertebral disc degeneration, lumbar region with discogenic back pain only M51.360 and Xerophthalmia E50.7 ASSESSMENTS Encounter Date Diagnosis Assessment Notes Treatment Notes Treatment Clinical Notes 03/29/2024 Psoriatic arthritis (ICD-10 - L40.50) 03/29/2024 Vitamin D deficiency (ICD-10 - E55.9) 03/29/2024 Paresthesia (ICD-10 - R20.2) 03/29/2024 Other senior care (current) drug therapy (ICD-10 - Z79.899) 03/29/2024 Other intervertebral disc degeneration, lumbar region with discogenic back pain only (ICD-10 - M51.360) 03/29/2024 Xerophthalmia (ICD-1 0 - E50.7) PLAN OF TREATMENT Medication Medication Name Sig Start Date Stop Date Notes Otezla 30 mg TAKE 1 TABLET BY CHANI TWICE DAILY Zoloft 20 mg/mL 2.5 mL orally once a day dextroamphetamine 15 mg 1 cap(s) orally once a day (in the morning) albuterol 2.5 mg/3 mL (0.083%) 3 mL by n ebulizer every 6 hours Debbie leflunomide 20 mg 1 tab(s) orally once a day Ventolin HFA 90 mcg/inh 2 puff(s) inhale d every 6 hours ergocalciferol 50,000 intl units 1 cap(s ) orally ONCE A WEEK Imitrex 100 mg 1 tab(s) orally once Next Appt Details Follow Up: 3 Months Dayna, Reason: Provider Name:Dayna Page, 09/16/2024 08:30:00 AM, [address], [place], [place], [phone], Progress Notes * Examination Category Sub-Category Detail Notes Rheumatology Cervical Spine normal range of motion Lumbar spine: normal forward and l ateral bending Thoracic Spine: normal Sacroiliac: normal Fibromyalgia Tender Points: none General Constitutional: No acute distres s HEENT: PERRLA, Neck supple, Normal sclerae and conjunctivae Cardiovascular RSR, No murmurs, Nor mal peripheral pulsations, No edema Lungs: clear to ausculation Abdomen: soft, no organomegal y or masses /Rectal: not done Skin: No cutaneous lesions . No subcutaneous nodules noted in the 4 extremities Neurological: No focal neurologica l findings Heme/Lymphatic: No cervical, axillar y, or inguinal adenopathy Psych: Alert, oriented x 3, Normal affect Musculoskeletal: Normal strength. No muscle atrophy Joint Exam Shoulders No swelling. No tenderness. NROM. Elbows No swelling. No tend erness. NROM. Wrists No swelling. No tend erness. NROM. Hips No tenderness, deshawn l ROM, no instability or deformity Knees No swelling, no tend erness, NROM. No instability or deformity Ankles No swelling, no tend erness, NROM., No instability or deformity. All MCPs No swelling, no tend erness, no deformity unless noted below. All PIPs No swelling, no tend erness, no deformity unless noted below. All DIPs No swelling, no tend erness, no deformity unless noted below. All MTPs No swelling, no tend erness, NROM, no deformity unless noted below. History and Physical Notes * HPI (History of Present Illness) Category Sub-Category Detail Notes Rheumatology Joint pain Joint swelling Fever Dyspnea/SOB Cough Lymphadenopathy Chills fatigue morning stiffness 30-60 minutes myalgias infection dry eyes dry mouth Raynaud's/ dicoloration of fingers muscle weakness digital ulcerations rash dysphagia photosensitivity Back pain History of gout Headaches Psoriasis Oral sores Iritis, conjuctivitis, uveiitis tendinitis Numbness or tingling Family History of Rheumatic Disease Alopecia chest pain miscarriage Subuctaneous nodules Physical Examination Category Sub-Category Detail Notes MDHAQ Summary Function (0-10):: 0 Pain (0-10):: 0 Patient Global Assessment of Disease Activity (0 -10):: 1.5 RAPID3 Score (0-30):: 1.5 Physician Global Assessment of Disease Activity (0-10):: 3 Prognosis Very Good w/tx Erosive Damage No
--- OUTSIDE RECORDS SUMMARY | 2024-08-16 08:19 | XMS_ITS | Encounter Summary ---
Author Organization [employer] Address 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 Gender Identity Not on file Sexual Orientation Not on file documented as of this encounter Plan of Treatment Not on file documented as of this encounter Procedures Procedure Name Priority Date/Time Associated Diagnosis Comments XR RIBS UNILATERAL LEFT W PA CHEST Routine 10/23/2008 4:31 PM CDT documented in this encounter Results * XR RIBS UNILATERAL LEFT W PA CHEST (10/23/2008 4:31 PM CDT) Anatomical Region Laterality Modality Chest Other 10/23/2008 4:31 PM CDT Narrative 10/24/2008 6:04 AM CDT [facility] [address] [place] [address] Admit Date: 10/23/2008 KARIME NARAYANAN Sex: F Admit Prov: COLBY GERMAN Date: 1975 Primary Care Prov: COLBY GERMAN CMRN: [id number] [id number] Ordering Prov: N/A Accession Number: [id number] Interpretation PA CHEST WITH LEFT RIBS, 10/23/08 History: Injury, pain. Findings: Exam is somewhat limited by the patient's body habitus. Radiographs are difficult to perform adequate penetration and as they are slightly underpenetrated due to the patient's body habitus a subtle nondisplaced fracture may be difficult to visualize. Lucencies paralleling the lower portions of the left ribs appear to be superimposition of fascial planes. There are degenerative changes seen throughout the thoracic spine. No definite rib fracture seen. No displaced rib fracture is seen. If further assessment for possible rib fracture is necessary bone scan is recommended. There are no prior chest radiographs for comparison. Penetration on the frontal chest radiograph is also limited by the patient's body habitus. The cardiac size is normal. No acute congestive changes, focal pneumonic infiltrates, or pleural effusions are identified. There is no pneumothorax identified. IMPRESSION: Exam is somewhat limited by the patient's body habitus. No definite rib fracture or acute cardiopulmonary disease is identified. . Dictated by: IQRA GRADY 10/23/2008 16:56 Electronically signed by: IQRA GRADY 10/24/2008 06:02 Transcribed: 10/23/2008 18:14 LE Procedure Note Iqra Grady, DO - 10/24/[address] [address] Admit Date: 10/23/2008 KARIME NARAYANAN Sex: F Admit Prov: COLBY GERMAN Date: 1975 Primary Care Prov: COLBY GERMAN CMRN: [id number] [id number] [facility] Ordering Prov: N/A Interpretation PA CHEST WITH LEFT RIBS, 10/23/08 History: Injury, pain. Findings: Exam is somewhat limited by the patient's body habitus. Radiographs are difficult to perform adequate penetration and as theyare slightly underpenetrated due to the patient's body habitus a subtle nondisplaced fracture may be difficult to visualize. Lucenciesparalleling the lower portions of the left ribs appear to be superimposition offascial planes. There are degenerative changes seen throughout the thoracicspine. No definite rib fracture seen. No displaced rib fracture is seen.If further assessment for possible rib fracture is necessary bone scanis recommended. There are no prior chest radiographs for comparison. Penetration onthe frontal chest radiograph is also limited by the patient's bodyhabitus. The cardiac size is normal. No acute congestive changes, focalpneumonic infiltrates, or pleural effusions are identified. There is nopneumothorax identified. IMPRESSION: Exam is somewhat limited by the patient's body habitus. No definiterib fracture or acute cardiopulmonary disease is identified. . Dictated by: IQRA GRADY 10/23/2008 16:56 Electronically signed by: IQRA GRADY 10/24/2008 06:02 Transcribed: 10/23/2008 18:14 LE Colby German MD DIAGNOSTIC IMAGING ORDERABLES Fi nal Result documented in this encounter Visit Diagnoses Diagnosis Injury to unspecified nerve of trunk, excluding shoulder and pelvic girdles documented in this encounter Care Teams Supervisor Building Maintenance Relationship Specialty Start Date End Date Chepe Villagomez MD [address] [place] [address] PCP - General Family Practice 10/17/12 documented as of this encounter
--- OUTSIDE RECORDS SUMMARY | 2024-08-16 08:19 | XMS_ITS | Encounter Summary ---
Author Organization [employer] Address 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 [address] PCP - General Family Practice 10/17/12 documented as of this encounter
--- OUTSIDE RECORDS SUMMARY | 2024-08-16 08:19 | XMS_ITS | Encounter Summary ---
Author Organization [employer] Address [address] [place] [address] Care Team Providers Care Manufacturing Executive Name Role Phone Chepe Villagomez MD Primary Care Provider [phone] Encounter Details Date Type Department Care Team (Latest Contact Info) Description 11/16/2004 Outpatient Historical [facility] EMERGENCY ROOM WASH David Carranza MD NO ADDRESS ON FILE Andree Thomson MD [address] [facility] [place] [address] MIGRAINE NEC W/O MENTN INTRACTABLE (Primary Dx) Social History Tobacco Use Types Packs/Day Years Used Date Smoking Tobacco: Never Assessed Comments Unknown Sex and Gender Information Value Date Recorded Sex Assigned at Not on file 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 [address] PCP - General Family Practice 10/17/12 documented as of this encounter
--- OUTSIDE RECORDS SUMMARY | 2024-08-16 08:19 | XMS_ITS ---
Author Organization [facility] Address [address] [place], [place] [phone] Care Team Providers Care Bridge Operator Slip Name Role Phone Chepe Villagomez Primary Care Provider Denise Melchor Unavailable [phone] Dayna Page Unavailable [phone] Encounters Encounter Location Date Provider Diagnosis [facility] [address], [address] [place], [place] [phone] 07/29/2024 Dayna Page PLAN OF TREATMENT Next Appt Details Provider Name:Dayna Page, 09/16/2024 08:30:00 AM, [address], [address], [place], [place], [phone],
--- OUTSIDE RECORDS SUMMARY | 2024-08-16 08:19 | XMS_ITS | Encounter Summary ---
Author Organization [employer] Address 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 [address] PCP - General Family Practice 10/17/12 documented as of this encounter
--- OUTSIDE RECORDS SUMMARY | 2024-08-16 08:19 | XMS_ITS | Encounter Summary ---
Author Organization [email or web address] Address 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 Gender Identity Not on file Sexual Orientation Not on file documented as of this encounter Plan of Treatment Not on file documented as of this encounter Procedures Procedure Name Priority Date/Time Associated Diagnosis Comments CBC WITH DIFFERENTIAL Routine 09/08/2004 4:40 AM CDT CBC WITH DIFFERENTIAL Routine 09/08/2004 4:40 AM CDT CBC WITH DIFFERENTIAL Routine 09/07/2004 4:10 AM CDT CBC WITH DIFFERENTIAL Routine 09/07/2004 4:10 AM CDT HEPATIC FUNCTION PANEL Routine 09/07/2004 4:10 AM CDT CBC WITH DIFFERENTIAL Routine 09/06/2004 1:30 AM CDT CBC WITH DIFFERENTIAL Routine 09/06/2004 1:30 AM CDT LIPASE Routine 09/06/2004 1:30 AM CDT HEPATIC FUNCTION PANEL Routine 09/06/2004 1:30 AM CDT BASIC METABOLIC PANEL Routine 09/06/2004 1:30 AM CDT URINALYSIS W/REFLEX MICROSCOPIC Routine 09/06/2004 1:15 AM CDT URINALYSIS W/REFLEX MICROSCOPIC Routine 09/06/2004 1:15 AM CDT HCG QUALITATIVE, URINE Routine 09/06/2004 1:15 AM CDT documented in this encounter Results * CBC WITH DIFFERENTIAL (09/08/2004 4:40 AM CDT) NEUTROPHILS 58 45 - 70 % INTERFAC E SYSTEM LYMPHOCYTES 33 16 - 45 % INTERFAC E SYSTEM MONOCYTES 7 3 - 13 % INTERFACE SYSTEM EOSINOPHILS 2 0 - 7 % INTERFAC E SYSTEM BASOPHILS 0 0 - 2 % INTERFACE SYSTEM NEUTROPHIL ABSOLUTE 6.00 1.90 - 7.00 K/uL INTERFACE SYSTEM LYMPHOCYTE ABSOLUTE 3.34 0.70 - 4.50 K/uL INTERFACE SYSTEM MONOCYTE ABSOLUTE 0.71 0.10 - 1.30 K/uL INTERFACE SYSTEM EOSINOPHIL ABSOLUTE 0.19 0.00 - 0.70 K/uL INTERFACE SYSTEM BASOPHILS ABSOLUTE 0.04 0.00 - 0.20 K/uL INTERFACE SYSTEM 09/08/2004 4:40 AM CDT us Yousif Mckeon MD HEMATOLOGY ORDERABLES Final Result INTERFACE SYSTEM Refer to clinic/hospital department * (ABNORMAL) CBC WITH DIFFERENTIAL (09/08/2004 4:40 AM CDT) WBC 10.3(H) 4.0 - 9.8 K/uL INTERFACE SYSTEM RBC 4.57 3.90 - 4.90 M/uL INTERFACE SYSTEM HEMOGLOBIN 12.7 11.8 - 14.8 g/dL INTERFACE SYSTEM HEMATOCRIT 38.6 35.5 - 44.0 % INTERFACE SYSTEM MCV 84.5 82.0 - 99.0 fL INTERFACE SYSTEM MCH 27.8 27.2 - 32.6 pg INTERFACE SYSTEM MCHC 32.9 31.5 - 35.5 % INTERFACE SYSTEM RDW 13.5 11.5 - 14.5 % INTERFACE SYSTEM RDW-STDEV 41.2 37.1 - 48.7 fL INTERFACE SYSTEM PLATELETS 295 140 - 350 K/uL INTERFACE SYSTEM MPV 9.3 9.3 - 12.4 fL INTERFACE SYSTEM 09/08/2004 4:40 AM CDT Yousif Mckeon MD HEMATOLOGY ORDERABLES Final Result Performing Organization Address [facility] Co de Phone Number INTERFACE SYSTEM Refer to clinic/hospital department * CBC WITH DIFFERENTIAL (09/07/2004 4:10 AM CDT) NEUTROPHILS 49 45 - 70 % INTERFAC E SYSTEM LYMPHOCYTES 43 16 - 45 % INTERFAC E SYSTEM MONOCYTES 6 3 - 13 % INTERFACE SYSTEM EOSINOPHILS 3 0 - 7 % INTERFAC E SYSTEM BASOPHILS 0 0 - 2 % INTERFACE SYSTEM NEUTROPHIL ABSOLUTE 4.01 1.90 - 7.00 K/uL INTERFACE SYSTEM LYMPHOCYTE ABSOLUTE 3.50 0.70 - 4.50 K/uL INTERFACE SYSTEM MONOCYTE ABSOLUTE 0.45 0.10 - 1.30 K/uL INTERFACE SYSTEM EOSINOPHIL ABSOLUTE 0.23 0.00 - 0.70 K/uL INTERFACE SYSTEM BASOPHILS ABSOLUTE 0.03 0.00 - 0.20 K/uL INTERFACE SYSTEM 09/07/2004 4:10 AM CDT Yousif Mckeon MD HEMATOLOGY ORDERABLES Final Result Performing Organization Address [facility] de Phone Number INTERFACE SYSTEM Refer to clinic/hospital department * (ABNORMAL) CBC WITH DIFFERENTIAL (09/07/2004 4:10 AM CDT) WBC 8.2 4.0 - 9.8 K/uL INTERFACE SYSTEM RBC 4.52 3.90 - 4.90 M/uL INTERFACE SYSTEM HEMOGLOBIN 12.6 11.8 - 14.8 g/dL INTERFACE SYSTEM HEMATOCRIT 38.1 35.5 - 44.0 % INTERFACE SYSTEM MCV 84.3 82.0 - 99.0 fL INTERFACE SYSTEM MCH 27.9 27.2 - 32.6 pg INTERFACE SYSTEM MCHC 33.1 31.5 - 35.5 % INTERFACE SYSTEM RDW 13.7 11.5 - 14.5 % INTERFACE SYSTEM RDW-STDEV 41.9 37.1 - 48.7 fL INTERFACE SYSTEM PLATELETS 261 140 - 350 K/uL INTERFACE SYSTEM MPV 8.9(L) 9.3 - 12.4 fL INTERFACE SYSTEM 09/07/2004 4:10 AM CDT Yousif Mckeon MD HEMATOLOGY ORDERABLES Final Result Performing Organization Address [facility] Phone Number INTERFACE SYSTEM Refer to clinic/hospital department * HEPATIC FUNCTION PANEL (09/07/2004 4:10 AM CDT) AST 13 12 - 32 U/L INTERFACE SYSTEM ALKALINE PHOSPHATASE 49 35 - 104 U/L INTERFACE SYSTEM BILIRUBIN TOTAL 0.6 0.2 - 1.0 mg/dL INTERFACE SYSTEM ALBUMIN 3.7 3.4 - 4.8 g/dL INTERFACE SYSTEM TOTAL PROTEIN 6.3 6.0 - 8.3 g/dL INTERFACE SYSTEM ALT 11 0 - 31 U/L INTERFACE SYSTEM BILIRUBIN DIRECT 0.1 0.0 - 0.3 mg/dL INTERFACE SYSTEM 09/07/2004 4:10 AM CDT Yousif Mckeon MD CHEMISTRY ORDERABLES Final Result Performing Organization Address [facility] Co de Phone Number INTERFACE SYSTEM Refer to clinic/hospital department * (ABNORMAL) BASIC METABOLIC PANEL (09/06/2004 1:30 AM CDT) GLUCOSE 110(H) 65 - 109 mg/dL INTERFACE SYSTEM CREATININE 0.9 0.4 - 1.2 mg/dL INTERFACE SYSTEM BUN 12 6 - 20 mg/dL INTERFACE SYSTEM SODIUM 138 135 - 145 mmol/L INTERFACE SYSTEM POTASSIUM 3.5 3.5 - 4.9 mmol/L INTERFACE SYSTEM CHLORIDE 106 96 - 108 mmol/L INTERFACE SYSTEM CALCIUM 9.2 8.6 - 10.2 mg/dL INTERFACE SYSTEM CO2 22 22 - 30 mmol/L INTERFACE SYSTEM 09/06/2004 1:30 AM CDT Tristan Estrella MD CHEMISTRY ORDERABLES Final Res ult Performing Organization Address [facility] de Phone Number INTERFACE SYSTEM Refer to clinic/hospital department * (ABNORMAL) CBC WITH DIFFERENTIAL (09/06/2004 1:30 AM CDT) NEUTROPHILS 83(H) 45 - 70 % INTERFAC E SYSTEM LYMPHOCYTES 14(L) 16 - 45 % INTERFAC E SYSTEM MONOCYTES 3 3 - 13 % INTERFACE SYSTEM EOSINOPHILS 0 0 - 7 % INTERFAC E SYSTEM BASOPHILS 0 0 - 2 % INTERFACE SYSTEM NEUTROPHIL ABSOLUTE 13.96(H) 1.90 - 7.00 K/uL INTERFACE SYSTEM LYMPHOCYTE ABSOLUTE 2.32 0.70 - 4.50 K/uL INTERFACE SYSTEM MONOCYTE ABSOLUTE 0.57 0.10 - 1.30 K/uL INTERFACE SYSTEM EOSINOPHIL ABSOLUTE 0.03 0.00 - 0.70 K/uL INTERFACE SYSTEM BASOPHILS ABSOLUTE 0.03 0.00 - 0.20 K/uL INTERFACE SYSTEM 09/06/2004 1:30 AM CDT Tristan Estrella MD HEMATOLOGY ORDERABLES Final Re sult Performing Organization Address [facility] de Phone Number INTERFACE SYSTEM Refer to clinic/hospital department * (ABNORMAL) CBC WITH DIFFERENTIAL (09/06/2004 1:30 AM CDT) WBC 16.9(H) 4.0 - 9.8 K/uL INTERFACE SYSTEM RBC 5.01(H) 3.90 - 4.90 M/uL INTERFACE SYSTEM HEMOGLOBIN 14.3 11.8 - 14.8 g/dL INTERFACE SYSTEM HEMATOCRIT 41.8 35.5 - 44.0 % INTERFACE SYSTEM MCV 83.4 82.0 - 99.0 fL INTERFACE SYSTEM MCH 28.5 27.2 - 32.6 pg INTERFACE SYSTEM MCHC 34.2 31.5 - 35.5 % INTERFACE SYSTEM RDW 13.6 11.5 - 14.5 % INTERFACE SYSTEM RDW-STDEV 41.2 37.1 - 48.7 fL INTERFACE SYSTEM PLATELETS 335 140 - 350 K/uL INTERFACE SYSTEM MPV 9.5 9.3 - 12.4 fL INTERFACE SYSTEM 09/06/2004 1:30 AM CDT Tristan Estrella MD HEMATOLOGY ORDERABLES Final Re sult Performing Organization Address [facility] Phone Number INTERFACE SYSTEM Refer to clinic/hospital department * LIPASE (09/06/2004 1:30 AM CDT) LIPASE 24 13 - 60 U/L INTERFAC E SYSTEM 09/06/2004 1:30 AM CDT Tristan Estrella MD CHEMISTRY ORDERABLES Final Res ult Performing Organization Address [facility] Number INTERFACE SYSTEM Refer to clinic/hospital department * HEPATIC FUNCTION PANEL (09/06/2004 1:30 AM CDT) AST 20 12 - 32 U/L INTERFACE SYSTEM ALKALINE PHOSPHATASE 56 35 - 104 U/L INTERFACE SYSTEM BILIRUBIN TOTAL 0.4 0.2 - 1.0 mg/dL INTERFACE SYSTEM ALBUMIN 4.7 3.4 - 4.8 g/dL INTERFACE SYSTEM TOTAL PROTEIN 8.2 6.3 - 8.6 g/dL INTERFACE SYSTEM ALT 15 0 - 31 U/L INTERFACE SYSTEM BILIRUBIN DIRECT 0.1 0.0 - 0.3 mg/dL INTERFACE SYSTEM 09/06/2004 1:30 AM CDT Tristan Estrella MD CHEMISTRY ORDERABLES Final Res ult Performing Organization Address [facility] Phone Number INTERFACE SYSTEM Refer to clinic/hospital department * URINALYSIS (09/06/2004 1:15 AM CDT) WBC UA 0-5 0 - 5 /HPF INTERFACE SYSTEM RBC UA 0-2 0 - 2 /HPF INTERFACE SYSTEM BACTERIA UA Trace None Seen /HPF INTERFACE SYSTEM EPITHELIAL CELLS, URINE 2-5 /HPF INTERFACE SYSTEM AMORPHOUS URATES, URINE Few /HPF INTERFACE SYSTEM 09/06/2004 1:15 AM CDT Tristan Estrella MD URINE ORDERABLES Final Result Performing Organization Address [facility] Phone Number INTERFACE SYSTEM Refer to clinic/hospital department * HCG QUALITATIVE, URINE (09/06/2004 1:15 AM CDT) SPECIFIC GRAVITY UA 1.025 1.001 - 1.035 INTERFACE SYSTEM HCG QUAL URINE Negative Negative INTER FACE SYSTEM 09/06/2004 1:1 5 AM CDT Tristan Estrella MD URINE ORDERABLES Final Result Performing Organization Address [facility] Phone Number INTERFACE SYSTEM Refer to clinic/hospital department * (ABNORMAL) URINALYSIS (09/06/2004 1:15 AM CDT) COLOR UA Yellow INTERFACE SYSTEM CLARITY UA Slt. Cloudy(A) Clear INTERFACE SYSTEM SPECIFIC GRAVITY UA 1.025 1.001 - 1.035 INTERFACE SYSTEM PH UA 6.5 5.0 - 8.0 INTERFACE SYSTEM LEUKOCYTE ESTERASE UA Negative Negative INTERFACE SYSTEM NITRITE UA Negative Negative INTERFACE SYSTEM PROTEIN UA Negative Negative INTERFACE SYSTEM GLUCOSE UA Negative Negative INTERFACE SYSTEM KETONES UA Trace(A) Negative INTERFACE SYSTEM UROBILINOGEN UA <1 <1 EU INTE RFACE SYSTEM BILIRUBIN UA Negative Negative INTERFA CE SYSTEM BLOOD UA 1+(A) Negative INTERFACE SYSTEM 09/06/2004 1:15 AM CDT Tristan Estrella MD URINE ORDERABLES Final Result Performing Organization Address [facility] Phone Number INTERFACE SYSTEM Refer to clinic/hospital department documented in this encounter Visit Diagnoses Diagnosis Calculus of gallbladder with acute cholecystitis, without mention of obstruction- Primary documented in this encounter Care Teams Whittling Room Operator Relationship Specialty Start Date End Date Chpee Villagomez MD [address] [place] [address] PCP - General Family Practice 10/17/12 documented as of this encounter
--- OUTSIDE RECORDS SUMMARY | 2024-08-16 08:19 | XMS_ITS | Encounter Summary ---
Author Organization [employer] Address 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 [phone] PCP - General Family Practice 10/17/12 documented as of this encounter
--- OUTSIDE RECORDS SUMMARY | 2024-08-16 08:19 | XMS_ITS | Encounter Summary ---
Author Organization [employer] Address [address] 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 [phone] PCP - General Family Practice 10/17/12 documented as of this encounter
--- OUTSIDE RECORDS SUMMARY | 2024-08-16 08:19 | XMS_ITS | Encounter Summary ---
Author Organization [employer] Address 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 [address] PCP - General Family Practice 10/17/12 documented as of this encounter
--- OUTSIDE RECORDS SUMMARY | 2024-08-16 08:19 | XMS_ITS ---
Author Organization [facility] Address [address] [place], [place] [address] Care Team Providers Care Glaucoma Specialist Name Role Phone Chepe Villagomez Primary Care Provider Denise Melchor Unavailable [phone] MEDICATIONS Medication SIG (Take, Route, Frequency, Duration) Notes Start Date End Date Status ergocalciferol 50,000 intl units 1 cap(s) orally ONCE A WEEK for 30 days Active Encounters Encounter Location Date Provider Diagnosis [facility] [address], [address] [place], [place] [id number] 04/01/2024 Denise Kee Vitamin D deficiency E55.9 ASSESSMENTS Encounter Date Diagnosis Assessment Notes Treatment Notes Treatment Clinical Notes 04/01/2024 Vitamin D deficiency (ICD-10 - E55.9) PLAN OF TREATMENT Medication Medication Name Sig Start Date Stop Date Notes ergocalciferol 50,000 intl units 1 cap(s ) orally ONCE A WEEK for 30 days Next Appt Details Provider Name:Dayna Page, 09/16/2024 08:30:00 AM, [address], [address], [place], [place], [id number],
--- OUTSIDE RECORDS SUMMARY | 2024-08-16 08:20 | XMS_ITS | Encounter Summary ---
Author Organization [employer] Address 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 [address] PCP - General Family Practice 10/17/12 documented as of this encounter
--- OUTSIDE RECORDS SUMMARY | 2024-08-16 08:20 | XMS_ITS | Encounter Summary ---
Author Organization [employer] Address 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 [phone] PCP - General Family Practice 10/17/12 documented as of this encounter
--- OUTSIDE RECORDS SUMMARY | 2024-08-16 08:20 | XMS_ITS | Encounter Summary ---
Author Organization [employer] Address 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 [address] PCP - General Family Practice 10/17/12 documented as of this encounter
--- NOTE | 2024-09-12 08:52 | WPDSLEEPSTUD ---
Sleep Study Date of Study: 08/16/24 Ordering Provider: MORENA Lazo Interpreting Physician: Ann Marie Connolly DO Sleep Study Type: Polysomnogram Height: 1.68 m Weight: 104.326 kg Body Mass Index: 37.1 Neck Circumference (inches): 17 [place]: 5 Reason for Sleep Study Previously diagnosed GENIE on MAD. Sleep has become less refreshing despite using oral appliance. Split study on 08/31/2018 showed overall AHI of 25.1 successfully treated with 9 cm H2O. Sleep History The patient is a 48-year-old female that had a sleep study ordered by the Pulmonary for re-evaluation sleep. Patient was previously diagnosed with sleep apnea and has been using a mandibular advancement device. She has daytime hypersomnia and non restorative sleep despite using the oral appliance every night. The patient occasionally awakens from sleep short of breath. She occasionally awakens at night with heartburn, belching or cough. She constantly snores loudly enough that others complain. She constantly has trouble sleeping when she has a cold. She denies waking up gasping for air throughout the night. She occasionally has breathing problems at night observed by herself or others. She constantly sweats excessively at night. She denies having heart palpitations or irregular heartbeats during the night. She rarely falls asleep during the day but never while driving. She denies sleep paralysis and cataplexy. She occasionally has trouble at school or work due to sleepiness. She occasionally experiences vivid dreamlike scenes upon awakening or falling asleep. She denies feeling afraid of going to sleep. She denies having nightmares. She occasionally remembers her. She constantly has thoughts racing through her mind. She rarely feels sad or depressed. She occasionally has anxiety. She constantly has muscular tension. She frequently notices parts her body jerk. She frequently kicks during the night. She frequently has crawling and aching in her legs and frequently has leg pain during the night. She rarely grinds her teeth during sleep but never awakens with morning jaw pain. She is constantly bothered by pain during the day and frequently awakened by pain during the. She constantly wakes up feeling stiff in the morning. She constantly wakes up with sore or achy muscles. She constantly wakes up with pain in the neck, spine and other joints. She goes to bed between 9-10 p.m. on weekdays and at 11:30 p.m. on the weekends. It takes her 1-2 hours to fall asleep. She wakes up 2-3 times throughout the night to urinate and the amount of time it takes for her to fall back asleep is variable. She wakes up at 4:45 a.m. on weekdays and 8:00 a.m. on the weekends. She typically gets 7 hours of sleep per night. She will stay in bed for no longer than 15 minutes after waking up in. She currently lives with her and [id number]. She denies consuming any caffeinated beverages within 2 hours of bedtime. She will occasionally have intercourse before bedtime. She denies reading before falling asleep. She will watch television before falling asleep. She will take naps in the afternoon or the evening only on the weekends. The naps are not She will consume 2-3 cups of coffee every day. She denies tobacco and alcohol use. She will consume marijuana edibles. [facility] Past Medical History Medical History Screening for lipoid disorders Otitis media Wheezing BMI 36.0-36.9,adult Anal fissure Chronic pain Rectal Pain Screening for thyroid disorder BMI 33.0-33.9,adult BMI 29.0-29.9,adult BMI 35.0-35.9,adult BMI 37.0-37.9, adult Right hamstring muscle strain Psoriatic arthritis Asthma Recurrent sinus infections Narcolepsy History of frequent upper respiratory infection Surgical History Surgical History H/O prior ablation treatment Status post LASIK surgery of both eyes History of cholecystectomy History of tonsillectomy and adenoidectomy Social History Social History Smoking status: Former smoker Tobacco type: cigarettes Second hand tobacco smoke exposure: No Smoking end date: 05/29/91 Alcohol intake: current Substance use: current Substance use type: marijuana Other substance usage details: Medical card, edibles Do You Feel Safe in your Home?: Yes Lack of Transportation: No Lack of Food: Never True Current Housing: I Have Housing Concerned About Future Housing: No Difficulty Paying Gas/Electric Bills: No Difficulty Paying for Meds: No Currently Unemployed: No Education: Master's Degree or Higher Difficulty w/ Childcare or Family Care: No Living arrangements: with family Additional living arrangements comments: and MIL Occupation/Education: occupation 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[employer] Gender identity (if verbalized by the patient): Female Sexual Orientation (if Verbalized by the Patient): Straight or Heterosexual Spiritual care concerns: Yes Agree to blood products: Yes Medications Home Medications ?Medication ?Instructions ?Recorded ?Confirmed ?Type apremilast 30 mg tablet (Otezla) 30 mg PO BID 10/23/19 07/22/24 History leflunomide 10 mg tablet 10 mg PO DAILY 02/17/21 07/22/24 History fexofenadine 180 mg tablet 180 mg PO DAILY 03/04/22 07/22/24 History (Debbie Allergy) albuterol sulfate 2.5 mg/3 mL 2.5 mg (3 mL) inhalation BID PRN 08/23/23 07/22/24 Rx (0.083 %) solution for nebulization shortness of breath or wheezing #180 mL sumatriptan succinate 100 mg tablet 100 mg PO ONCE PRN migraine 09/15/23 07/22/24 Rx headache #10 tabs azelastine 205.5 mcg (0.15 %) 2 spray intranasal DAILY 06/04/24 07/22/24 History nasal spray (Astepro Allergy) albuterol 90 mcg-budesonide 80 2 inh inhalation 6XD PRN shortness 07/22/24 07/22/24 Rx mcg/actuation HFA aerosol inhaler of breath #32.1 grams (Airsupra) sertraline 25 mg tablet See Rx Instructions .Route 08/13/24 Rx .COMPLEX #90 tabs dextroamphetamine sulfate 15 mg 15 mg PO DIRECTED #60 caps 09/04/24 Rx capsule,extended release tirzepatide (weight loss) 2.5 2.5 mg (0.5 mL) subcut WEEKLY 4 09/06/24 Rx mg/0.5 mL subcutaneous solution weeks #2 mL (Zepbound) Sleep Procedure A full night polysomnogram using the [employer] multi-channel system recorded the standard physiologic parameters including EEG, EOG, submentalis EMG, anterior tibialis EMG, EKG, body position, nasal and oral airflow using nasal pressure sensor and thermistor.? Respiratory parameters of chest and abdominal movements were recorded with Respiratory Inductance Plethysmography belts. Oxygen saturation was recorded by pulse oximetry. Video monitoring was also performed. Sleep stages, periodic limb movements, and EEG arousals were scored in 30 second epochs according to the criteria of the AASM Scoring Manual. The Apnea-Hypopnea Index was calculated using CMS guidelines for definition of hypopnea with 4% O2 desaturations while scoring respiratory events. Sleep Architecture The total recording time was 557.9 minutes.? The total sleep time was 466.0 minutes. Sleep latency was 21.7 minutes. REM latency was 301.5 minutes. Sleep efficiency was 83.5%. The patient had 52 awakenings for an awakening index of 6.7. Wake after sleep onset time was 70.0 minutes. The patient spent 65.5 minutes, 14.1% of total sleep time in Stage N1. The patient spent 337.0 minutes, 72.3% in Stage N2. The patient spent 23.5 minutes, 5.0% in Stage N3. The patient spent 40.0 minutes, 8.6% in Stage REM sleep. Respiratory Analysis The patient had 8 hypopneas and 1 central apnea for an overall Apnea Hypopnea Index of 1.2. The REM Apnea Hypopnea Index was 13.5. The NREM Apnea Hypopnea Index was 0.8. The patient had a Central Apnea Hypopnea Index of 0.1. There was no evidence of Dawson-Galeano Respirations. Arousals There were 132 total arousals for an arousal index of 17.0. There were 47 spontaneous arousals for an index of 6.1. There were 3 arousals due to respiratory events for an index of 0.4. There were 61 arousals due to periodic limb movements for an index of 7.9.? There were 22 arousals due to isolated limb movements for an index of 2.8. Periodic Limb Movements The patient had 49 isolated limb movements with an index of 6.3. The patient had 173 periodic limb movements with an index of 22.3, which is elevated (normal < 15). Patient had a total of 222 limb movements with a total limb movement index of 28.6. Oximetry Data The patient had an average oxygen saturation of 95.2% in sleep with a minimum oxygen saturation of 90.0% and a maximum oxygen saturation of 99.0%. The patient had 15 oxygen desaturations that were 4% or greater resulting in an Oxygen Desaturation Index of 1.9.? The patient spent 0.1 minutes of total sleep time with an oxygen saturation below 88%. Snoring Profile Mild snoring was present throughout the study. Cardiac Profile The EKG showed normal sinus rhythm with rare PVCs. The patient had an average pulse rate of 83.2 bpm with a minimum pulse of rate of 65.0 bpm and a maximum pulse rate of 110.0 bpm.? EEG Profile No signs of seizure activity seen. Alpha intrusion was present throughout the study. Assessment and Plan Assessment and Plan (1) PLMD (periodic limb movement disorder): Code(s): G47.61 - Periodic limb movement disorder Status: Acute Assessment and Plan: The patient had an overall AHI 1.2 with desaturation down to 92%. This is not consistent with sleep disordered breathing. If the patient used her mandibular advancement device up until the night of the sleep study, this could be a false negative study. The patient had a significant number of limb movements during the study with the majority being periodic in nature. Approximately 1/3 of the periodic limb movements caused arousals in the patient's sleep. The patient's sleep history is highly suggestive of Restless Leg Syndrome. I recommend that the patient have a serum ferritin drawn for evaluation of iron deficiency anemia. If the patient has a serum ferritin less than 75 ng/mL, I recommend starting a daily iron supplement and a Vitamin C supplement for better absorption. If the serum ferritin is greater than 75 ng/mL, I recommend starting a dopamine agonist and titrating the dose until symptoms resolve. There are nonpharmacological methods to treat limb movements including daily exercise, stretching calf muscles before bed, avoiding excessive amounts of caffeine and alcohol, vitamin B supplementation, magnesium lotion massaged into legs before bed, and use of a weighted blanket. Alpha intrusion, also known as alpha-delta sleep, is an EEG finding where alpha waves are present during NREM sleep. Alpha waves are typically present in wake. While alpha intrusion can be seen in a small subset of healthy individuals, it is often found in patients with depression, fibromyalgia, chronic pain and other sleep disorders. Clinically, alpha intrusion presents as non-restorative sleep. Treatment of alpha intrusion is directed towards the underlying cause. Data The data obtained during this sleep study is adequate for interpretation. Certification This sleep study has been reviewed by a board certified sleep medicine physician.
[2024-09-12 12:19] VITALS: BMI 37.1
== END 2024-08-17 07:32 | disposition home or self-care (01) ==
LOC: ANHCSM 08:10
PROVIDERS: PCP Family Medicine; Visit Provider Physician Assistant
DX: G47.61 Periodic limb movement disorder (principal); G47.33 Obstructive sleep apnea (adult) (pediatric)
CPT/HCPCS: 95810

== ENCOUNTER 2024-10-21 11:22 | Emergency (ER) | payer BC, OTHER, SELFPAY ==
--- NOTE | ~2024-10-21 | CT_ITS ---
CTA neck, CTA chest Ordering provider: Lisa Brice History: . neck pain, numbness to left arm . Comparison: None. Technique: CT angiogram neck and chest was performed following timed intravenous injection of contras t. Thin slice axial images and reformatted coronal images were obtained. Three dimensional reformatte d images of the neck were also obtained using a [employer] workstation. Automated exposure control and it erative reconstruction technique were employed. The dose-length product was 596.77 (accession [id number]), 917.38 (accession [id number]) mGy-cm. 150 mL Omnipaque 350 was given IV. FINDINGS: Retropharyngeal position of both internal carotid artery is seen. RIGHT CERVICAL CAROTID ARTERY: Normal caliber and contour. Percent stenosis per NASCET criteria is 0 %. No carotid dissection. Otherwise, no significant atheromatous disease or stenosis of the cervical carotid system. LEFT CERVICAL CAROTID ARTERY: Normal caliber and contour. Percent stenosis per NASCET criteria is 0% . No carotid dissection. Otherwise, no significant atheromatous disease or stenosis of the cervical c arotid system. VISUALIZED BILATERAL INTRACRANIAL CAROTID ARTERIES: VERTEBRAL BASILAR SYSTEM: Normal caliber and contour VISUALIZED AORTIC ARCH AND BRANCHING VESSELS: Normal caliber and contour. No significant atheromatous disease. SOFT TISSUES: Tiny cyst seen in the right thyroid lobe otherwise, normal. CERVICAL SPINE: Age appropriate degenerative changes. IMPRESSION: Normal CTA head and neck. Percent stenosis per NASCET criteria is 0%. CTA neck, CTA chest Ordering provider: Lisa Brice PA-C History: 48 years Female with . neck pain, numbness to left arm . Comparison: None. Technique: CT angiogram chest was performed following timed intravenous injection of contrast. Thin s lice axial images and reformatted coronal images were obtained. Three dimensional reformatted images of the chest were also obtained using a [employer] workstation. . Automated exposure control and iterati ve reconstruction technique were employed. The dose-length product was 596.77 (accession [id number]), 917.38 (accession [id number]) mGy-cm. Findings: PULMONARY ARTERIES: No pulmonary embolus. VISUALIZED THORACIC INLET: Normal. MEDIASTINUM: Aorta/coronary arteries: The thoracic aorta is normal. Heart/other: The heart is not enlarged. Lymph nodes: No mediastinal or hilar adenopathy. LUNGS: No pulmonary nodules or masses. No infiltrates or effusions. No pneumothorax. VISUALIZED UPPER ABDOMEN: Fat infiltration of the liver status. Post cholecystectomy.. Otherwise, the visualized upper abdomen is normal. MUSCULOSKELETAL: Soft tissues: The superficial soft tissues are normal. Bones: Age appropriate degenerative changes of the spine. IMPRESSION: 1. No pulmonary embolism or aortic dissection. 2. No acute cardiopulmonary pathology. Reviewed, dictated and finalized at location A. IMPRESSION: Normal CTA head and neck. Percent stenosis per NASCET criteria is 0%. CTA neck, CTA chest Ordering provider: Lisa Brice PA-C History: 48 years Female with . neck pain, numbness to left arm . Comparison: None. Technique: CT angiogram chest was performed following timed intravenous injecti on of contrast. Thin slice axial images and reformatted coronal images were obt ained. Three dimensional reformatted images of the chest were also obtained usi ng a [employer] workstation. . Automated exposure control and iterative reconstruc tion technique were employed. The dose-length product was 596.77 (accession [id number]), 917.38 (accession [id number]) mGy-cm. Findings: PULMONARY ARTERIES: No pulmonary embolus. VISUALIZED THORACIC INLET: Normal. MEDIASTINUM: Aorta/coronary arteries: The thoracic aorta is normal. Heart/other: The heart is not enlarged. Lymph nodes: No mediastinal or hilar adenopathy. LUNGS: No pulmonary nodules or masses. No infiltrates or effusions. No pneumothorax. VISUALIZED UPPER ABDOMEN: Fat infiltration of the liver status. Post cholecyste ctomy.. Otherwise, the visualized upper abdomen is normal. MUSCULOSKELETAL: Soft tissues: The superficial soft tissues are normal. Bones: Age appropriate degenerative changes of the spine. IMPRESSION: 1. No pulmonary embolism or aortic dissection. 2. No acute cardiopulmonary pathology. IMPRESSION: Normal CTA head and neck. Percent stenosis per NASCET criteria is 0%. CTA neck, CTA chest Ordering provider: Lisa Brice PA-C History: 48 years Female with . neck pain, numbness to left arm . Comparison: None. Technique: CT angiogram chest was performed following timed intravenous injecti on of contrast. Thin slice axial images and reformatted coronal images were obt ained. Three dimensional reformatted images of the chest were also obtained usi ng a [employer] workstation. . Automated exposure control and iterative reconstruc tion technique were employed. The dose-length product was 596.77 (accession [id number]), 917.38 (accession [id number]) mGy-cm. Findings: PULMONARY ARTERIES: No pulmonary embolus. VISUALIZED THORACIC INLET: Normal. MEDIASTINUM: Aorta/coronary arteries: The thoracic aorta is normal. Heart/other: The heart is not enlarged. Lymph nodes: No mediastinal or hilar adenopathy. LUNGS: No pulmonary nodules or masses. No infiltrates or effusions. No pneumothorax. VISUALIZED UPPER ABDOMEN: Fat infiltration of the liver status. Post cholecyste ctomy.. Otherwise, the visualized upper abdomen is normal. MUSCULOSKELETAL: Soft tissues: The superficial soft tissues are normal. Bones: Age appropriate degenerative changes of the spine.
--- NOTE | ~2024-10-21 | XR_ITS ---
XR chest 1V portable Ordering provider: Lisa Brice PA-C History: 48 years Female with . chest pain . Comparison: August 23, 2023 FINDINGS: MEDIASTINUM: The cardiac silhouette is not enlarged. LUNGS: No infiltrates, effusions or pneumothorax. Bilateral prominent bronchovascular markings. OTHER: No free air under the diaphragm. Degenerative changes of the spine. IMPRESSION: No definite acute cardiopulmonary pathology. Reviewed, dictated and finalized at location A.
--- OUTSIDE RECORDS SUMMARY | 2024-10-21 11:24 | XMS_ITS | Encounter Summary ---
Author Organization [employer] Address 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 [address] PCP - General Family Practice 10/17/12 documented as of this encounter
--- OUTSIDE RECORDS SUMMARY | 2024-10-21 11:24 | XMS_ITS ---
Author Organization [facility] Address [address] [place], [place] [id number] Care Team Providers Care Banking Attorney Name Role Phone Chepe Villagomez Primary Care Provider Denise Melchor Unavailable [phone] MEDICATIONS Medication SIG (Take, Route, Frequency, Duration) Notes Start Date End Date Status ergocalciferol 50,000 intl units 1 cap(s) orally ONCE A WEEK for 84 days Active Encounters Encounter Location Date Provider Diagnosis [facility] [address], [address] [place], [place] [id number] 09/21/2024 Denise Kee Vitamin D deficiency E55.9 ASSESSMENTS Encounter Date Diagnosis Assessment Notes Treatment Notes Treatment Clinical Notes 09/21/2024 Vitamin D deficiency (ICD-10 - E55.9) PLAN OF TREATMENT Medication Medication Name Sig Start Date Stop Date Notes ergocalciferol 50,000 intl units 1 cap(s ) orally ONCE A WEEK for 84 days Next Appt Details Provider Name:Denise alfonso, 12/30/2024 09:00:00 AM, [address] [facility], [address], [place], [place], [id number],
--- OUTSIDE RECORDS SUMMARY | 2024-10-21 11:24 | XMS_ITS | Encounter Summary ---
Author Organization [facility] Address 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 [address] [address] Admit Date: 07/13/2007 KARIME ZENG Sex: F Admit Prov: COLBY GERMAN Date: 1975 Primary Care Prov: COLBY GERMAN CMRN: [id number] Room: [facility] UNITN: [id number] IMAGING SERVICES Ordering Prov: N/A Accession Number: [id number] Interpretation EXAMINATION: MRI OF LUMBAR SPINE WITHOUT [...] SMM Procedure Note Provider, Historical - 07/13/[address] [address] Admit Date: 07/13/2007 KARIME ZENG Sex: F Admit Prov: COLBY GERMAN Date: 1975 Primary Care Prov: COLBY GERMAN CMRN: [id number] Room: [facility] UNITN: [id number] IMAGING SERVICES Ordering Prov: N/A Interpretation EXAMINATION: [...] Lumbago documented in this encounter Care Teams Balloon Seller Relationship Specialty Start Date End Date Chepe Villagomez MD [address] [place] [address] PCP - General Family Practice 10/17/12 documented as of this encounter
--- OUTSIDE RECORDS SUMMARY | 2024-10-21 11:24 | XMS_ITS | Encounter Summary ---
Author Organization [email or web address] Address 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 [phone] PCP - General Family Practice 10/17/12 documented as of this encounter
--- OUTSIDE RECORDS SUMMARY | 2024-10-21 11:24 | XMS_ITS | Encounter Summary ---
Author Organization [employer] Address 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 [address] PCP - General Family Practice 10/17/12 documented as of this encounter
--- OUTSIDE RECORDS SUMMARY | 2024-10-21 11:24 | XMS_ITS ---
Author Organization [facility] Address [address] [place], [place] [address] Care Team Providers Care Medical Physiologist Name Role Phone Chepe Villagomez Primary Care Provider Denise Melchor Unavailable [phone] Encounters Encounter Location Date Provider Diagnosis [facility] [address], [address] [place], [place] [id number] 09/21/2024 Denise Kee Psoriatic arthritis L40.50 ASSESSMENTS Encounter Date Diagnosis Assessment Notes Treatment Notes Treatment Clinical Notes 09/21/2024 Psoriatic arthritis (ICD-10 - L40.50) PLAN OF TREATMENT Future Test Test Name Order Date Sed Rate - Westergren 10/14/2024 C-Reactive Protein, Quant 10/14/2024 Next Appt Details Provider Name:Denise alfonso, 12/30/2024 09:00:00 AM, [address] [facility], [address], [place], [place], [id number],
--- OUTSIDE RECORDS SUMMARY | 2024-10-21 11:24 | XMS_ITS | Encounter Summary ---
Author Organization [employer] Address 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 [address] PCP - General Family Practice 10/17/12 documented as of this encounter
--- OUTSIDE RECORDS SUMMARY | 2024-10-21 11:24 | XMS_ITS | Encounter Summary ---
Author Organization [employer] Address 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 Gender Identity Not on file Sexual Orientation [...] HEMATOLOGY ORDERABLES Final Result Performing Organization Address City/[facility] Co de Phone Number INTERFACE SYSTEM Refer [...] HEMATOLOGY ORDERABLES Final Result Performing Organization Address City/[facility] de Phone Number INTERFACE SYSTEM Refer to [...] HEMATOLOGY ORDERABLES Final Result Performing Organization Address [facility] Phone Number INTERFACE SYSTEM Refer to [...] CHEMISTRY ORDERABLES Final Result Performing Organization Address [facility] Co de Phone Number INTERFACE SYSTEM Refer [...] ORDERABLES Final Res ult Performing Organization Address [facility] de Phone Number INTERFACE SYSTEM Refer to [...] ORDERABLES Final Re sult Performing Organization Address [facility] de Phone Number INTERFACE SYSTEM Refer to [...] ORDERABLES Final Re sult Performing Organization Address [facility] Phone Number INTERFACE SYSTEM Refer to clinic/hospital department * LIPASE (09/06/2004 1:30 AM CDT) LIPASE 24 13 - 60 U/L INTERFAC E SYSTEM 09/06/2004 1:30 AM CDT Tristan Estrella MD CHEMISTRY ORDERABLES Final Res ult Performing Organization Address [facility] Number INTERFACE SYSTEM Refer to clinic/hospital department [...] ORDERABLES Final Res ult Performing Organization Address [facility] Phone Number INTERFACE SYSTEM Refer to [...] URINE ORDERABLES Final Result Performing Organization Address [facility] Phone Number INTERFACE SYSTEM Refer to clinic/hospital department * HCG QUALITATIVE, URINE (09/06/2004 1:15 AM CDT) SPECIFIC GRAVITY UA 1.025 1.001 - 1.035 INTERFACE SYSTEM HCG QUAL URINE Negative Negative INTER FACE SYSTEM 09/06/2004 1:1 5 AM CDT Tristan Estrella MD URINE ORDERABLES Final Result Performing Organization Address [facility] Phone Number INTERFACE SYSTEM Refer to clinic/hospital [...] URINE ORDERABLES Final Result Performing Organization Address [facility] Phone Number INTERFACE SYSTEM Refer to clinic/hospital department documented in this encounter Visit Diagnoses Diagnosis Calculus of gallbladder with acute cholecystitis, without mention of obstruction- Primary documented in this encounter Care Teams Design Coordinator Relationship Specialty Start Date End Date Chepe Villagomez MD [address] [place] [address] PCP - General Family Practice 10/17/12 documented as of this encounter
--- OUTSIDE RECORDS SUMMARY | 2024-10-21 11:24 | XMS_ITS | Encounter Summary ---
Author Organization [employer] Address 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 [address] PCP - General Family Practice 10/17/12 documented as of this encounter
--- OUTSIDE RECORDS SUMMARY | 2024-10-21 11:24 | XMS_ITS | Clinical Summary ---
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 Gender Identity Not on file Sexual Orientation [...] - Respiratory Rate 14 04/24/2013 9:39 AM OTHER SPORTS OFFICIAL Oxygen Saturation - - Inhaled Oxygen Concentration - - Weight 113.9 kg (251 lb) 11/26/2014 10:55 AM CDT Height 170.2 cm (5' 7) 11/26/2014 10:55 AM CDT Body Mass Index 39.31 11/26/2014 10:55 AM CDT Plan of Treatment Health Maintenance Due Date Last Done Comments DTAP/TDAP/TD VACCINES (1 - Tdap) 1992 HEPATITIS B VACCINES (1 of 3 - 19+ 3-dose series) 10/28 HPV/Cotest (21-29) 1994 CERVICAL CANCER SCREENING 11/18/2003 HPV/Cotest (30-65) 11/18/2003 PAP SMEAR 11/18/2003 BREAST CANCER SCREENING 2013 COLORECTAL SCREENING 2018 Colorectal Cancer Screening 2018 FIT-DNA Q 3 years 2018 FIT/FOBT Q 1 year 2018 Flex Sig/CT Colonography Q 5 years 2018 ZOSTER VACCINE (1 of 2) 11/18/2023 INFLUENZA VACCINE (#1) [address] [place] [address] [address] [place] [id number] [facility] [employer] Care Teams Paper Folder Relationship Specialty Start Date End Date Chepe Villagomez MD [address] [place] [address] PCP - General Family Practice 10/17/12
--- OUTSIDE RECORDS SUMMARY | 2024-10-21 11:24 | XMS_ITS | Encounter Summary ---
Author Organization [employer] Address [address] 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 [phone] PCP - General Family Practice 10/17/12 documented as of this encounter
--- OUTSIDE RECORDS SUMMARY | 2024-10-21 11:24 | XMS_ITS | Encounter Summary ---
Author Organization [employer] Address 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 [address] PCP - General Family Practice 10/17/12 documented as of this encounter
--- OUTSIDE RECORDS SUMMARY | 2024-10-21 11:24 | XMS_ITS | Encounter Summary ---
Author Organization [employer] Address 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 [phone] PCP - General Family Practice 10/17/12 documented as of this encounter
--- OUTSIDE RECORDS SUMMARY | 2024-10-21 11:24 | XMS_ITS | Encounter Summary ---
Author Organization [employer] Address 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 [address] PCP - General Family Practice 10/17/12 documented as of this encounter
--- OUTSIDE RECORDS SUMMARY | 2024-10-21 11:24 | XMS_ITS ---
Author Organization [facility] Address [address] [place], [place] [address] Care Team Providers Care Orthopedic Shoe Fitter Name Role Phone Chepe Villagomez Primary Care Provider Denise Melchor Unavailable [phone] REASON FOR VISIT Otezla PA - [facility] MEDICATIONS Medication SIG (Take, Route, Frequency, Duration) Notes Start Date End Date Status Otezla 30 mg 1 tab(s) orally 2 ti mes a day for 30 days Active Encounters Encounter Location Date Provider Diagnosis [facility] [address], [address] [place], [place] [id number] 09/16/2024 Denise Kee Psoriatic arthritis L40.50 ASSESSMENTS Encounter Date Diagnosis Assessment Notes Treatment Notes Treatment Clinical Notes 09/16/2024 Psoriatic arthritis (ICD-10 - L40.50) PLAN OF TREATMENT Medication Medication Name Sig Start Date Stop Date Notes Otezla 30 mg 1 tab(s) orally 2 times a day for 30 days Next Appt Details Provider Name:Denise alfonso, 12/30/2024 09:00:00 AM, [address], [address], [place], [place], [id number],
--- OUTSIDE RECORDS SUMMARY | 2024-10-21 11:24 | XMS_ITS | Clinical Summary ---
Author Organization [facility] Address [address] [place] [address] Care Team Providers Care Rn Plasma Center Name Role Phone Yaya German MD Primary Care Provider [phone] Source Comments [facility],non-owned Affiliates and Associated Physician Practices is amultiple site organization consisting of ambulatory clinics and hospital sitesin [place], [place], [place] and [place]. This disclosure is being madepursuant to the Care Everywhere program and may not contain all information available regarding this patient. 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
--- OUTSIDE RECORDS SUMMARY | 2024-10-21 11:24 | XMS_ITS | Encounter Summary ---
Author Organization [employer] Address [address] [place] [address] Care Team Providers Care Help Desk Internship Name Role Phone Chepe Villagomez MD Primary Care Provider [phone] Encounter Details Date Type Department Care Team (Latest Contact Info) Description 11/16/2004 Outpatient Historical HIS EMERGENCY ROOM WASH David Carranza MD NO ADDRESS ON FILE Andree Thomson MD [address] [facility] [place] [address] MIGRAINE NEC W/O MENTN INTRACTABLE (Primary Dx) Social History Tobacco Use Types Packs/Day Years Used Date Smoking Tobacco: Never Assessed Comments Unknown Sex and Gender Information Value Date Recorded Sex Assigned at Not on file 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 [address] PCP - General Family Practice 10/17/12 documented as of this encounter
--- OUTSIDE RECORDS SUMMARY | 2024-10-21 11:24 | XMS_ITS | Encounter Summary ---
Author Organization [email or web address] Address 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 Sex Female 3:58 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 Gender Identity Not on file Sexual [...] PM CDT Narrative 10/24/2008 6:04 AM CDT [facility] [address] [place] [address] Admit Date: 10/23/2008 KARIME NARAYANAN Sex: F Admit Prov: COLBY GERMAN Date: 1975 Primary Care Prov: COLBY GERMAN CMRN: [id number] [id number] [facility] Ordering Prov: N/A Accession Number: [id number] Interpretation PA CHEST WITH LEFT RIBS, 10/23/08 [...] Transcribed: 10/23/2008 18:14 LE Procedure Note Iqra rGady, DO - 10/24/[address] [address] Admit Date: 10/23/2008 KARIME ANRAYANAN Sex: F Admit Prov: COLBY GERMAN Date: 1975 Primary Care Prov: COLBY GERMAN CMRN: [id number] [id number] IMAGING SERVICES Ordering Prov: N/A Interpretation PA [...] girdles documented in this encounter Care Teams Paint Striping Machine Operator Relationship Specialty Start Date End Date Chepe Villagomez MD [address] [place] [address] PCP - General Family Practice 10/17/12 documented as of this encounter
--- OUTSIDE RECORDS SUMMARY | 2024-10-21 11:24 | XMS_ITS | Encounter Summary ---
Author Organization [employer] Address [address] 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 [address] PCP - General Family Practice 10/17/12 documented as of this encounter
--- OUTSIDE RECORDS SUMMARY | 2024-10-21 11:24 | XMS_ITS | Encounter Summary ---
Author Organization [employer] Address 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 [address] PCP - General Family Practice 10/17/12 documented as of this encounter
--- OUTSIDE RECORDS SUMMARY | 2024-10-21 11:25 | XMS_ITS | Patient Health Record ---
Author Organization [facility] Address [address] [facility] [address] [facility] [address] [place], [place] [id number] Care Team Providers Care Solution Analyst Name Role Phone Hernando Chepe Primary Care Provider Denise Melchor Unavailable [phone] Dayna Page Unavailable [phone] ALLERGIES Allergen (clinical drug ingredient) Drug/Non Drug Allergy documented on EMR Reaction Allergy Type Onset Date Status sulfa (uncoded) Unknown Allergy Acti ve RESULTS Component Value Reference Range Notes AST (SGOT) Reviewed date:11/10/2023 10:27:40 AM Interpretation: Performing Lab:[facility], [address] [place] [address], Phone - [phone], Director - [facility] Notes/Report: AST (SGOT) 16 0-40 IU/L Creatinine, Serum Reviewed date:11/10/2023 10:27:40 AM Interpretation: Performing Lab:[facility] [address] [place] [address], Phone - [phone], Director - [facility] Notes/Report: Creatinine 0.63 0.57-1.00 mg/dL eGFR 109 >59 mL/min/1.73 ALT (SGPT) Reviewed date:11/10/2023 10:27:40 AM Interpretation: Performing Lab:[facility] [address] [place] [address], Phone - [phone], Director - [facility] Notes/Report: ALT (SGPT) 14 0-32 IU/L CBC With Differential/Platel et Reviewed date:11/10/2023 10:27:40 AM Interpretation: Performing Lab:[facility] [place] [address] [place] [address], Phone - [phone], Director - [facility] Notes/Report: WBC 8.5 3.4-10.8 x10E3/uL RBC 5.20 3.77-5.28 x10E6/uL Hemoglobin 13.5 11.1-15.9 g/dL Hematocrit 43.1 34.0-46.6 % MCV 83 79-97 fL MCH 26.0 26.6-33.0 pg MCHC 31.3 31.5-35.7 g/dL RDW 14.9 11.7-15.4 % Platelets 357 150-450 x10E3/uL Neutrophils 55 Not Estab. % Lymphs 37 Not Estab. % Monocytes 6 Not Estab. % Eos 1 Not Estab. % Basos 1 Not Estab. % Immature Cells Neutrophils (Absolute) 4.7 1.4-7.0 x10E3/uL Lymphs (Absolute) 3.1 0.7-3.1 x10E3/uL Monocytes(Absolute) 0.5 0.1-0.9 x10E3/uL Eos (Absolute) 0.1 0.0-0.4 x10E3/uL Baso (Absolute) 0.1 0.0-0.2 x10E3/uL Immature Granulocytes 0 Not Estab. % Immature Grans (Abs) 0.0 0.0-0.1 x10E3/uL NRBC Hematology Comments: Sed Rate - [place] Reviewed date:11/10/2023 10:27:40 AM Interpretation: Performing Lab:[facility] [place] [address] [place] [address], Phone - [phone], Director - [facility] Notes/Report: Sedimentation Rate-[place] 23 0-32 mm/hr AST (SGOT) Reviewed date:01/07/2024 10:38:36 AM Interpretation: Performing Lab:[facility] [place] [address] [place] [address], Phone - [phone], Director - [facility] Notes/Report: AST (SGOT) 20 0-40 IU/L Creatinine, Serum Reviewed date:01/07/2024 10:38:42 AM Interpretation: Performing Lab:[facility] [place] [address] [place] [address], Phone - [phone], Director - [facility] Notes/Report: Creatinine 0.60 0.57-1.00 mg/dL eGFR 109 >59 mL/min/1.73 ALT (SGPT) Reviewed date:01/07/2024 10:38:38 AM Interpretation: [facility]forming [facility], [address] [place] [address], Phone - [phone], Director - [facility] Notes/Report: ALT (SGPT) 21 0-32 IU/L CBC With Differential/Platel et Reviewed date:01/07/2024 10:43:05 AM Interpretation: Performing Lab:[facility], [address] [place] [address], Phone - [phone], Director - [facility] Notes/Report: WBC 7.5 3.4-10.8 x10E3/uL RBC 5.31 3.77-5.28 x10E6/uL Hemoglobin 13.7 11.1-15.9 g/dL Hematocrit 43.4 34.0-46.6 % MCV 82 79-97 fL MCH 25.8 26.6-33.0 pg MCHC 31.6 31.5-35.7 g/dL RDW 14.3 11.7-15.4 % Platelets 329 150-450 x10E3/uL Neutrophils 51 Not Estab. % Lymphs 40 Not Estab. % Monocytes 6 Not Estab. % Eos 2 Not Estab. % Basos 1 Not Estab. % Immature Cells Neutrophils (Absolute) 3.9 1.4-7.0 x10E3/uL Lymphs (Absolute) 3.0 0.7-3.1 x10E3/uL Monocytes(Absolute) 0.4 0.1-0.9 x10E3/uL Eos (Absolute) 0.1 0.0-0.4 x10E3/uL Baso (Absolute) 0.1 0.0-0.2 x10E3/uL Immature Granulocytes 0 Not Estab. % Immature Grans (Abs) 0.0 0.0-0.1 x10E3/uL NRBC Hematology Comments: AST (SGOT) Reviewed date:03/30/2024 10:44:27 PM Interpretation: Performing Lab:[facility], [address] [place] [address], Phone - [phone], [facility] Notes/Report: AST (SGOT) 16 0-40 IU/L Creatinine, Serum Reviewed date:03/30/2024 10:44:27 PM Interpretation: Performing Lab:[facility], Phone - [phone], [facility] Notes/Report: Creatinine 0.69 0.57-1.00 mg/dL eGFR 106 >59 mL/min/1.73 ALT (SGPT) Reviewed date:03/30/2024 10:44:27 PM Interpretation: Performing Lab:[facility], Phone - [phone], Director - [facility] Notes/Report: ALT (SGPT) 18 0-32 IU/L CBC With Differential/Platel et Reviewed date:03/30/2024 10:44:27 PM Interpretation: Performing Lab:[facility], Phone - [phone], [facility] - [facility] Notes/Report: WBC 8.6 3.4-10.8 x10E3/uL RBC 5.08 [...] % Immature Grans (Abs) 0.0 0.0-0.1 x10E3/uL [facility] Hematology Comments: Sed Rate - [place] Reviewed date:03/30/2024 10:44:27 PM Interpretation: Performing Lab:[facility] [place] [address] [place] [address], Phone - [phone], Director - [facility] Notes/Report: Sedimentation Rate-Jasonergren 35 0-40 mm/hr C-Reactive Protein, Quant Reviewed date:03/30/2024 10:44:27 PM Interpretation: Performing Lab:[facility] [place] [address] [place] [address], Phone - [phone], Director - [facility] Notes/Report: C-Reactive Protein, Quant 15 0-10 mg/L VITAMIN D, 25-HYDROXY, LC/MS /MS Reviewed date:04/01/2024 08:17:59 AM Interpretation: Performing Lab:[facility], Phone - [phone], Director - [facility] Notes/Report: Vitamin D, 25-Hydroxy 17.7 30.0-100.0 ng/mL Vitamin D deficiency has been defined by the [place] of [employer] and an Endocrine Society practice guideline as a level of serum 25-OH vitamin D less than 20 ng/mL (1,2). The Endocrine Society went on to further define vitamin D insufficiency as a level between 21 and 29 ng/mL (2). 1. IOM ([place] of [employer]). 2010. Dietary reference intakes for calcium and D. [place]: The National Academies Press. 2. Jackson MF, Slick [place], Frantz LUCERO, et al. Evaluation, treatment, and prevention of vitamin D deficiency: an Endocrine Society clinical practice guideline. JCEM. 2010; 96(7):1911-30. AST (SGOT) Reviewed date:09/19/2024 10:00:50 AM Interpretation: Performing [facility] [address] [place] [address], Phone - [phone], Director - [facility] Notes/Report: AST (SGOT) 23 0-40 IU/L Creatinine, Serum Reviewed date:09/19/2024 10:00:50 AM Interpretation: Performing [facility] [address] [place] [address], Phone - [phone], Director - [facility] Notes/Report: Creatinine 0.74 0.57-1.00 mg/dL eGFR 99 >59 mL/min/1.73 ALT (SGPT) Reviewed date:09/19/2024 10:00:50 AM Interpretation: Performing [facility], [address] [place] [address], Phone - [phone], Director - [facility] Notes/Report: ALT (SGPT) 25 0-32 IU/L CBC With Differential/Platel et Reviewed date:09/19/2024 10:00:50 AM Interpretation: Performing [facility], [address] [place] [address], Phone - [phone], Director - [facility] Notes/Report: WBC 10.2 3.4-10.8 x10E3/uL RBC 5.22 3.77-5.28 x10E6/uL Hemoglobin 13.2 11.1-15.9 g/dL Hematocrit 42.0 34.0-46.6 % MCV 81 79-97 fL MCH 25.3 26.6-33.0 pg MCHC 31.4 31.5-35.7 g/dL RDW 15.2 11.7-15.4 % Platelets 349 150-450 x10E3/uL Neutrophils 58 Not Estab. % Lymphs 35 Not Estab. % Monocytes 4 Not Estab. % Eos 2 Not Estab. % Basos 1 Not Estab. % Immature Cells Neutrophils (Absolute) 5.9 1.4-7.0 x10E3/uL Lymphs (Absolute) 3.6 0.7-3.1 x10E3/uL Monocytes(Absolute) 0.4 0.1-0.9 x10E3/uL Eos (Absolute) 0.2 0.0-0.4 x10E3/uL Baso (Absolute) 0.1 0.0-0.2 x10E3/uL Immature Granulocytes 0 Not Estab. % Immature Grans (Abs) 0.0 0.0-0.1 x10E3/uL NRBC Hematology Comments: Rishabh Cummings Reviewed date:09/21/2024 11:06:52 PM Interpretation: Performing Lab:[facility], [address] [place] [address], Phone - [phone], [facility] - [facility] Notes/Report: Sedimentation Rate-[place] 47 0-40 mm/hr C-Reactive Protein, Quant Reviewed date:09/21/2024 11:06:52 PM Interpretation: Performing Lab:[facility] [place], [address] [facility], Phone - [phone], Director - Karthik Notes/Report: C-Reactive Protein, Quant 21 0-10 mg/L VITAMIN D, 25-HYDROXY, LC/MS /MS Reviewed date:09/21/2024 11:06:52 PM Interpretation: Performing Lab:[facility] [place], [address] [facility], Phone - [phone], Director - [facility] Notes/Report: Vitamin D, 25-Hydroxy 14.4 30.0-100.0 ng/mL Vitamin D deficiency has been defined by the [place] of [employer] and an Endocrine Society practice guideline as a level of serum 25-OH vitamin D less than 20 ng/mL (1,2). The Endocrine Society went on to further define vitamin D insufficiency as a level between 21 and 29 ng/mL (2). 1. IOM ([place] of [employer]). 2010. Dietary reference intakes for calcium and D. [place]: The National Academies Press. 2. Jackson MF, [place], Frantz LUCERO, et al. Evaluation, treatment, and prevention of vitamin D deficiency: an Endocrine Society clinical practice guideline. JCEM. 2010; 96(7):1911-30. REASON FOR REFERRAL No Information MEDICATIONS Medication SIG (Take, Route, Frequency, Duration) Notes Start Date End Date Status Imitrex 100 mg 1 tab(s) orally once Active Debbie Active Ventolin HFA 90 mcg/inh 2 puff(s) inhale d every 6 hours Active albuterol 2.5 mg/3 mL (0.083%) 3 mL by n ebulizer every 6 hours Active Airsupra 90 mcg-80 mcg/inh 2 INH inhaled 4 times a day Active dextroamphetamine 15 mg 1 cap(s) orally once a day (in the morning) Active ergocalciferol 50,000 intl units 1 cap(s) orally ONCE A WEEK for 84 days Active Otezla 30 mg 1 tab(s) orally 2 times a day for 30 days Active Zoloft 20 mg/mL 2.5 mL orally once a day Active predniSONE 5 mg 6 tablets for 2 days then decrease by 1 tablet every 2 days until mary ellen orally once a day for 12 days 09/16/2024 Active leflunomide 20 mg 1 tab(s) orally once a day Active SOCIAL HISTORY Sex Assigned At : Social History Observation Description Sex Assigned At Unknown PROBLEMS Problem Type ICD Code Onset Dates Problem Status W/U Status Risk SNOMED Code Notes Problem Vitamin D deficiency (E55.9) Active confirmed Vitamin D deficiency (43686384) Problem Psoriasis (L40.9) Active confirmed 9014 002 Problem Psoriatic arthritis (L40.50) Active confirmed 144821939 Problem Polyarthralgia (M25.50) Active confirmed 77982880 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 (605776084) Problem Paresthesia (R20.2) Active confirmed 42927655 Problem 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 VITAL SIGNS Heart Rate 93 /min 09/16/2024 Blood pressure diastolic 115 mm Hg 09/16/2024 Height 66 in 09/16/2024 Blood pressure systolic 176 mm Hg 09/16/2024 Weight 231 lbs 09/16/2024 BMI 37.28 kg/m2 09/16/2024 Encounters Encounter Location Date Provider Diagnosis [facility] [address] [place] [address], [address] [phone] 11/09/2023 Daynajuan jose Page Psoriatic arthritis L40.50 ; Paresthesia R20.2 ; Other fci (current) drug therapy Z79.899 ; Vitamin D deficiency E55.9 ; Degenerative disc disease, lumbar M51.36 and Xerophthalmia E50.7 [facility] [address] [place] [address], [address] [id number] 01/05/2024 Denise Kee Psoriatic arthritis L40.50 ; Paresthesia R20.2 ; Other terminologist (current) drug therapy Z79.899 ; Vitamin D deficiency E55.9 ; Degenerative disc disease, lumbar M51.36 and Xerophthalmia E50.7 [facility] [address] [place] [address], [address] [id number] 03/29/2024 Dayna Hartig Psoriatic arthritis L40.50 ; Vitamin D deficiency E55.9 ; Paresthesia R20.2 ; Other fci (current) drug therapy Z79.899 ; Other intervertebral disc degeneration, lumbar region with discogenic back pain only M51.360 and Xerophthalmia E50.7 [facility] [address] [place] [address], [address] [id number] 07/29/2024 Dayna Rahulig [facility] [address] [place] [address], [address] [id number] 09/16/2024 Dayna Hartig Psoriatic arthritis L40.50 ; Vitamin D deficiency E55.9 ; Other fci (current) drug therapy Z79.899 ; Other intervertebral disc degeneration, lumbar region with discogenic back pain only M51.360 ; Paresthesia R20.2 and Xerophthalmia E50.7 [facility] [address] [place] [address] [id number] 04/01/2024 Denise Defrancoiseendorf Vitamin D deficiency E55.9 [facility] [address] [place] [address], [address] [id number] 09/16/2024 Denise Dehlendorf Psoriatic arthritis L40.50 [facility] [address] [place] [address], [address] [id number] 09/16/2024 Denise Dehlendorf Psoriatic arthritis L40.50 [facility] [address] [place] [address] [id number] 09/21/2024 Denise Dehlendorf Psoriatic arthritis L40.50 [facility] [address] [place] [address], [address] [id number] 09/21/2024 Denise Dehlendorf Vitamin D deficiency E55.9 ASSESSMENTS Encounter Date Diagnosis Assessment Notes Treatment Notes Treatment Clinical Notes 11/09/2023 Psoriatic arthritis (ICD-10 - L40.50) 11/09/2023 Paresthesia (ICD-10 - R20.2) 01/05/2024 Psoriatic arthritis (ICD-10 - L40.50) 01/05/2024 Paresthesia (ICD-10 - R20.2) 03/29/2024 Vitamin D deficiency (ICD-10 - E55.9) 03/29/2024 Psoriatic arthritis (ICD-10 - L40.50) 09/16/2024 Vitamin D deficiency (ICD-10 - E55.9) 09/16/2024 Psoriatic arthritis (ICD-10 - L40.50) 04/01/2024 Vitamin D deficiency (ICD-10 - E55.9) 09/16/2024 Psoriatic arthritis (ICD-10 - L40.50) 09/16/2024 Psoriatic arthritis (ICD-10 - L40.50) 09/21/2024 Psoriatic arthritis (ICD-10 - L40.50) 09/21/2024 Vitamin D deficiency (ICD-10 - E55.9) 11/09/2023 Other fci (current) drug therapy (ICD-10 - Z79.899) 01/05/2024 Other fci (current) drug therapy (ICD-10 - Z79.899) 03/29/2024 Paresthesia (ICD-10 - R20.2) 09/16/2024 Other fci (current) drug therapy (ICD-10 - Z79.899) 11/09/2023 Vitamin D deficiency (ICD-10 - E55.9) 01/05/2024 Vitamin D deficiency (ICD-10 - E55.9) 03/29/2024 Other fci (current) drug therapy (ICD-10 - Z79.899) 09/16/2024 Other intervertebral disc degeneration, lumbar region with discogenic back pain only (ICD-10 - M51.360) 11/09/2023 Degenerative disc disease, lumbar (ICD-10 - M51.36) 01/05/2024 Degenerative disc disease, lumbar (ICD-10 - M51.36) 03/29/2024 Other intervertebral disc degeneration, lumbar region with discogenic back pain only (ICD-10 - M51.360) 09/16/2024 Paresthesia (ICD-10 - R20.2) 11/09/2023 Xerophthalmia (ICD-1 0 - E50.7) 01/05/2024 Xerophthalmia (ICD-1 0 - E50.7) 03/29/2024 Xerophthalmia (ICD-1 0 - E50.7) 09/16/2024 Xerophthalmia (ICD-1 0 - E50.7) PLAN OF TREATMENT Pending Test Test Name Order Date X ray : Spines, lumbar- outside order C-Reactive Protein, Quant 11/09/2023 Hepatitis Panel (4) 12/29/2020 VITAMIN D, 25-HYDROXY, LC/MS/MS 12/30/19 21 X ray : Hand left- outside order 021 X ray : Hand right- outside order 2020 X ray : SI joints- outside order 021 X ray : Foot Left- outside order 021 X ray : Foot Right- outside order 2020 -Xray slip given 01/15/2021 Future Test Test Name Order Date Sed Rate - [place] 10/14/2024 C-Reactive Protein, Quant 10/14/2024 Next Appt Details Provider Name:Denise Shepard naty, 12/30/2024 09:00:00 AM, [address] [facility], [address], [place], [place], [id number], Insurance Providers Payer Name Payer Address Payer Phone Subscriber Number Group Number Insured Name Patient Relationship to Insured Coverage Start Date Coverage End Date [employer] PPO [address] [place] [phone] [id number] Joi Castellano Self - patient is the insured 4 [facility] - CHOICE PL[employer] [address] [place] [address] [id number] Joi Castellano Self - patient is the insured 4 MEDICAL (GENERAL) HISTORY Medical History History ICD Code migraine headache neuropathy sinus problems anxiety asthma varicose veins Surgical History Surgery Date(Month/Year) lypo 2020 ablation 2017 gallbladder surgery 2005 Lasik 2007 tonsillectomy 1979 Hospitalization History Reason Date(Month/Year) broken wrist 1981
[2024-10-21 11:40] VITALS: BP 176/104; PULSE 91; RESP 17; TEMP 36.6; O2SAT 100
--- NOTE | 2024-10-21 13:13 | ECG_ITS ---
Test Date: 2024-10-21 14:40:12 Measurements Intervals [place] Rate: 79 P: 34 MT: 133 QRS: -4 QRSD: 95 T: 57 QT: 362 QTc: 416 Interpretive Statements SINUS RHYTHM No previous ECG available for comparison Electronically Signed On 10-21-2024 15:07:16 CDT by Darren Salvador M.D.
--- NOTE | 2024-10-21 13:17 | ED.BACK ---
HPI - Back Pain/Injury General Chief Complaint: Back Pain/Injury Stated Complaint: upper back pain Time Seen by Provider: 10/21/24 15:01 Focused HPI: 48 y/o F presents to the ED for mid back pain that radiates into her neck, and chest and causes numbness to her left arm for the past 4 days. Patient states she has tried several medications at home including Tylenol, Aleve and muscle relaxers without improvement. States her pain is worse with movement, she cannot get comfortable. She endorses a history of psoriatic arthritis. Denies abdominal pain, paresthesias, vision changes. Denies lower extremity numbness or weakness. Denies injury or trauma. GENERAL: Well-appearing, well-nourished, and in no acute distress. HEAD: Normocephalic, atraumatic. CHEST: Clear to auscultation. ?No respiratory distress. Tenderness to left chest wall BACK: Tenderness to the left cervical and thoracic paraspinous muscles and around T4 HEART: Regular rate and rhythm.? NEURO: ?Alert and oriented x3. Patient screened in triage and initial orders placed.? ?Additional care and disposition to be based upon?diagnostic testing and treatment. Related Data Home Medications ?Medication ?Instructions ?Recorded ?Confirmed ?Last Taken ?Type apremilast 30 mg tablet (Otezla) 30 mg PO BID 10/23/19 07/22/24 Unknown History leflunomide 10 mg tablet 10 mg PO DAILY 02/17/21 07/22/24 Unknown History fexofenadine 180 mg tablet 180 mg PO DAILY 03/04/22 07/22/24 Unknown History (Debbie Allergy) azelastine 205.5 mcg (0.15 %) 2 spray intranasal DAILY 06/04/24 07/22/24 Unknown History nasal spray (Astepro Allergy) Allergies Allergy/AdvReac Type Severity Reaction Status Date / Time Sulfa (Sulfonamide Allergy Mild Rash Verified 10/21/24 11:22 Antibiotics) [facility] Past Medical History Medical History Screening for lipoid disorders Otitis media Wheezing BMI 36.0-36.9,adult Anal fissure Chronic pain Rectal Pain Screening for thyroid disorder BMI 33.0-33.9,adult BMI 29.0-29.9,adult BMI 35.0-35.9,adult BMI 37.0-37.9, adult Right hamstring muscle strain Psoriatic arthritis Asthma Recurrent sinus infections Narcolepsy History of frequent upper respiratory infection Surgical History Surgical History H/O prior ablation treatment Status post LASIK surgery of both eyes History of cholecystectomy History of tonsillectomy and adenoidectomy Social History Social History Smoking status: Former smoker Tobacco type: cigarettes Second hand tobacco smoke exposure: No Smoking end date: 05/29/91 Alcohol intake: current Substance use: current Substance use type: marijuana Other substance usage details: Medical card, edibles Do You Feel Safe in your Home?: Yes Lack of Transportation: No Lack of Food: Never True Current Housing: I Have Housing Concerned About Future Housing: No Difficulty Paying Gas/Electric Bills: No Difficulty Paying for Meds: No Currently Unemployed: No Education: Master's Degree or Higher Difficulty w/ Childcare or Family Care: No Living arrangements: with family Additional living arrangements comments: and MIL Occupation/Education: occupation 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[employer] Gender identity (if verbalized by the patient): Female Sexual Orientation (if Verbalized by the Patient): Straight or Heterosexual Spiritual care concerns: Yes Agree to blood products: Yes Course Vital Signs Vital signs: Vital Signs Temperature 97.8 F 10/21/24 11:40 Pulse Rate 91 10/21/24 11:40 Respiratory Rate 17 10/21/24 11:40 Blood Pressure 176/104 H 10/21/24 11:40 Pulse Oximetry 100 10/21/24 11:40 Temperature 97.8 F 10/21/24 11:40 Pulse Rate 78 10/21/24 16:10 Respiratory Rate 16 10/21/24 16:10 Blood Pressure 153/88 H 10/21/24 16:10 Pulse Oximetry 99 10/21/24 16:10 Oxygen Delivery Room Air 10/21/24 14:43 MDM - Back Pain/Injury Lab Data 10/21/24 14:32 10/21/24 14:32 Labs: Lab Results 10/21/24 Range/Units 14:32 WBC 12.9 H (4.5-10.0) K/mm3 RBC 5.98 H (4.2-5.4) M/mm3 Hgb 14.9 (12.0-15.0) g/dL Hct 48.0 H (37.0-47.0) % MCV 80.3 (80-100) fl MCH 24.9 L (26-34) pg MCHC 31.0 L (32-36) g/dl RDW 17.1 H (11.5-14.5) % Plt Count 382 H (150-375) k/mm3 MPV 8.9 (7.4-10.4) fl Immature Gran % (Auto) 0.9 H (0-0.5) % Neut % (Auto) 72.5 (45.5-73.1) % Lymph % (Auto) 22.1 (18.3-44.2) % [place] % (Auto) 3.5 (2.6-8.5) % Eos % (Auto) 0.3 (0-4.4) % Baso % (Auto) 0.7 (0.2-1.2) % Lymph # (Auto) 2.84 (0.9-3.2) K/mm3 [place] # (Auto) 0.5 (0.1-0.6) K/mm3 Eos # (Auto) 0.0 (0-0.3) K/mm3 Baso # (Auto) 0.1 (0.0-0.1) K/mm3 Abs Immat Gran (auto) 0.12 H (0.00-0.031) K/mm3 Absolute Neuts (auto) 9.3 H (1.3-6.7) K/mm3 Absolute Nucleated RBC 0.000 (0.0-0.012) K/mm3 Nucleated RBC % 0.0 (0.0-0.2) % PT 13.1 (11.1-14.7) Seconds INR 1.0 APTT 24.5 (22.3-36.8) Seconds Sodium 141 (137-145) mmol/L Potassium 4.1 (3.4-5.0) mmol/L Chloride 106 (98-107) mmol/L Carbon Dioxide 25 (22-30) mmol/L Anion Gap 10 (4-12) mmol/L BUN 14 (7-17) mg/dL Creatinine 0.66 L (0.7-1.0) mg/dL Estim Creat Clear Calc 107 ml/min Estimated GFR > 60 (59 - ) Glucose 121 H (65-110) mg/dL Calcium 9.8 (8.4-10.2) mg/dL Total Bilirubin 0.3 (0.2-1.3) mg/dL AST 26 (14-36) U/L ALT 26 (6-35) U/L Alkaline Phosphatase 73 (38-126) U/L Troponin I < 0.012 (0.000-0.034) ng/mL NT-Pro-B Natriuret Pep 361 H (19.9-100) pg/mL Total Protein 8.0 (6.3-8.2) g/dL Albumin 4.6 (3.5-5.1) g/dL Lipase 116 (23-300) U/L Discharge Plan Discharge Clinical Impression: Back pain Patient Disposition: Home Condition: Stable Instructions: Back Pain (ED) Additional Instructions: Return if symptoms are worsening , call your family physician for appointment, take Tylenol as as needed for aches and pain, continue home medications. Heating pad Massage Exercise Keep left arm elevated above the level of the heart Patient Language: [place] Prescriptions: New diclofenac sodium 75 mg tablet,delayed release (DR/EC) 75 mg PO BID PRN (Reason: pain) Qty: 14 0RF cyclobenzaprine 10 mg tablet 10 mg PO TID PRN (Reason: muscle spasm) Qty: 20 0RF No Action Airsupra 90-80 mcg/actuation HFA aerosol inhaler 2 inh inhalation 6XD PRN (Reason: shortness of breath) Qty: 32.1 3RF Otezla 30 mg tablet 30 mg PO BID leflunomide 10 mg tablet 10 mg PO DAILY fexofenadine [Debbie Allergy] 180 mg tablet 180 mg PO DAILY albuterol sulfate 2.5 mg /3 mL (0.083 %) solution for nebulization 2.5 mg inhalation BID PRN (Reason: shortness of breath or wheezing) Qty: 180 1RF azelastine [Astepro Allergy] 205.5 mcg (0.15 %) spray,non-aerosol 2 spray intranasal DAILY Rx Instructions: administer into each nostril sumatriptan succinate 100 mg tablet 100 mg PO ONCE PRN (Reason: migraine headache) Qty: 10 0RF Rx Instructions: May repeat dose in 2 hours if not relief. Max 200mg in 24 hours sertraline 25 mg tablet See Rx Instructions .ROUTE .COMPLEX Qty: 90 1RF Dose Instruction: TAKE 1 TABLET BY MOUTH EVERY DAY Rx Instructions: TAKE 1 TABLET BY MOUTH EVERY DAY dextroamphetamine sulfate 15 mg capsule, extended release 15 mg PO DIRECTED Qty: 60 0RF Rx Instructions: Take 2 caps in the morning by mouth. Follow-up/Referrals: Chepe Villagomez MD [Primary Care Provider] -
--- OUTSIDE RECORDS SUMMARY | 2024-10-21 13:33 | XMS_ITS | Encounter Summary ---
Author Organization [facility] Address [address] [place] [address] Care Team Providers Care Rehabilitation Therapy Technician Name Role Phone Chepe Villagomez MD Primary Care Provider [phone] Encounter Details Date Type Department Care Team (Late st Contact Info) Description 02/27/2001 Outpatient Historical [facility] RADIOLOGY Yaya German MD [address] [place] [id number] Other and unspecified disc disorder of lumbar region (Primary Dx) Social History Tobacco Use Types Packs/Day Years Used Date Smoking Tobacco: Never Assessed Comments Unknown Sex and Gender Information Value Date Recorded Sex Assigned at Not on file 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 [address] PCP - General Family Practice 10/17/12 documented as of this encounter
--- OUTSIDE RECORDS SUMMARY | 2024-10-21 13:33 | XMS_ITS | Encounter Summary ---
Author Organization [facility] Address [address] [place] [address] Care Team Providers Care Machine Tracer Name Role Phone Chepe Villagomez MD Primary Care Provider [phone] Encounter Details Date Type Department Care Team (Latest Contact Info) Description 11/16/2004 Outpatient Historical [facility] EMERGENCY ROOM WASH David Carranza MD NO ADDRESS ON FILE Andree Thomson MD [address] [facility] [place] [address] MIGRAINE NEC W/O MENTN INTRACTABLE (Primary Dx) Social History Tobacco Use Types Packs/Day Years Used Date Smoking Tobacco: Never Assessed Comments Unknown Sex and Gender Information Value Date Recorded Sex Assigned at Not on file 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 [address] PCP - General Family Practice 10/17/12 documented as of this encounter
--- OUTSIDE RECORDS SUMMARY | 2024-10-21 13:33 | XMS_ITS | Encounter Summary ---
Author Organization [facility] Address 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 [address] PCP - General Family Practice 10/17/12 documented as of this encounter
--- OUTSIDE RECORDS SUMMARY | 2024-10-21 13:33 | XMS_ITS | Encounter Summary ---
Author Organization [facility] Address 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 [address] PCP - General Family Practice 10/17/12 documented as of this encounter
--- OUTSIDE RECORDS SUMMARY | 2024-10-21 13:33 | XMS_ITS | Encounter Summary ---
Author Organization [facility] Address 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 [address] PCP - General Family Practice 10/17/12 documented as of this encounter
--- OUTSIDE RECORDS SUMMARY | 2024-10-21 13:33 | XMS_ITS | Encounter Summary ---
Author Organization [facility] Address 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 [address] PCP - General Family Practice 10/17/12 documented as of this encounter
--- OUTSIDE RECORDS SUMMARY | 2024-10-21 13:33 | XMS_ITS | Encounter Summary ---
Author Organization [facility] Address [address] [place] [address] Care Team Providers Care Carton Forming Machine Tender Name Role Phone Chepe Villagomez MD Primary Care Provider [phone] Encounter Details Date Type Department Care Team (Latest Contact Info) Description 09/06/2004 Inpatient Historical [facility] INPATIENT IN BED Yaya German MD [address] [place] [address] CHOLELITH W ACUTE GB DIS-NO OBSTR (Primary Dx) Social History Tobacco Use Types Packs/Day Years Used Date Smoking Tobacco: Never Assessed Comments Unknown Sex and Gender Information Value Date Recorded Sex Assigned at Not on file Legal Sex Female 3:58 AM CLINICAL TEAM MANAGER Gender Identity Not on file Sexual [...] HEMATOLOGY ORDERABLES Final Result Performing Organization Address [facility] Co de Phone Number INTERFACE [...] HEMATOLOGY ORDERABLES Final Result Performing Organization Address [facility] de Phone Number INTERFACE SYSTEM Refer [...] HEMATOLOGY ORDERABLES Final Result Performing Organization Address [facility] Phone Number INTERFACE SYSTEM Refer [...] CHEMISTRY ORDERABLES Final Result Performing Organization Address [facility] Co de Phone Number INTERFACE [...] ORDERABLES Final Res ult Performing Organization Address [facility] de Phone Number INTERFACE SYSTEM Refer [...] ORDERABLES Final Re sult Performing Organization Address [facility] de Phone Number INTERFACE SYSTEM Refer [...] ORDERABLES Final Re sult Performing Organization Address [facility] Phone Number INTERFACE SYSTEM Refer to clinic/hospital department * LIPASE (09/06/2004 1:30 AM CDT) LIPASE 24 13 - 60 U/L INTERFAC E SYSTEM 09/06/2004 1:30 AM CDT Tristan Estrella MD CHEMISTRY ORDERABLES Final Res ult Performing Organization Address [facility] Number INTERFACE SYSTEM Refer to clinic/hospital [...] ORDERABLES Final Res ult Performing Organization Address [facility] Phone Number INTERFACE SYSTEM Refer [...] URINE ORDERABLES Final Result Performing Organization Address [facility] Phone Number INTERFACE SYSTEM Refer to clinic/hospital department * HCG QUALITATIVE, URINE (09/06/2004 1:15 AM CDT) SPECIFIC GRAVITY UA 1.025 1.001 - 1.035 INTERFACE SYSTEM HCG QUAL URINE Negative Negative INTER FACE SYSTEM 09/06/2004 1:1 5 AM CDT Tristan Estrella MD URINE ORDERABLES Final Result Performing Organization Address [facility] Phone Number INTERFACE SYSTEM Refer [...] URINE ORDERABLES Final Result Performing Organization Address [facility] Phone Number INTERFACE SYSTEM Refer to clinic/hospital department documented in this encounter Visit Diagnoses Diagnosis Calculus of gallbladder with acute cholecystitis, without mention of obstruction- Primary documented in this encounter Care Teams Carton Forming Machine Tender Relationship Specialty Start Date End Date Chepe Villagomez MD [address] [place] [address] PCP - General Family Practice 10/17/12 documented as of this encounter
--- OUTSIDE RECORDS SUMMARY | 2024-10-21 13:33 | XMS_ITS | Encounter Summary ---
Author Organization [facility] Address [address] 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 [address] PCP - General Family Practice 10/17/12 documented as of this encounter
--- OUTSIDE RECORDS SUMMARY | 2024-10-21 13:33 | XMS_ITS | Encounter Summary ---
Author Organization [facility] Address [address] [place] [address] Care Team Providers Care Certified Physical Therapist Assistant Name Role Phone Chepe Villagomez MD Primary Care Provider [phone] Encounter Details Date Type Department Care Team (Late st Contact Info) Description 07/11/2007 Outpatient Historical [facility] RADIOLOGY Yaya German MD [address] [place] [id number] Other, [place] NO ADDRESS ON FILE Pain in Joint, Forearm Social History Tobacco Use Types Packs/Day Years Used Date Smoking Tobacco: Never Assessed Comments Unknown Sex and Gender Information Value Date Recorded Sex Assigned at Not on file Legal Sex Female 3:58 AM RATCHET SETTER Gender Identity Not on file Sexual Orientation Not on file documented as of this encounter Plan of Treatment Not on file documented as of this encounter Visit Diagnoses Diagnosis Pain in joint, forearm documented in this encounter Care Teams Certified Physical Therapist Assistant Relationship Specialty Start Date End Date Chepe Villagomez MD [address] [place] [address] PCP - General Family Practice 10/17/12 documented as of this encounter
--- OUTSIDE RECORDS SUMMARY | 2024-10-21 13:33 | XMS_ITS | Encounter Summary ---
Author Organization [facility] Address 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) Social History Tobacco Use Types Packs/Day Years Used Date Smoking Tobacco: Never Assessed Comments Unknown Sex and Gender Information Value Date Recorded Sex Assigned at Not on file 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 [address] PCP - General Family Practice 10/17/12 documented as of this encounter
--- OUTSIDE RECORDS SUMMARY | 2024-10-21 13:33 | XMS_ITS | Encounter Summary ---
Author Organization [facility] Address [address] [place] [address] Care Team Providers Care Tapeman Name Role Phone Chepe Villagomez MD Primary Care Provider [phone] Encounter Details Date Type Department Care Team (Latest Contact Info) Description 09/23/2004 Outpatient Historical [facility] OBSERVATION IN BED Yousif Mckeon MD [address] [address] CHOLELITH W CHOLECYS NEC (Primary Dx) Social History Tobacco Use Types Packs/Day Years Used Date Smoking Tobacco: Never Assessed Comments Unknown Sex and Gender Information Value Date Recorded Sex Assigned at Not on file Legal Sex Female 3:58 AM UNDERCAR SPECIALIST Gender Identity Not on file Sexual Orientation Not on file documented as of this encounter Plan of Treatment Not on file documented as of this encounter Visit Diagnoses Diagnosis Calculus of gallbladder with other cholecystitis, without mention of obstruction- Primary documented in this encounter Care Teams Tapeman Relationship Specialty Start Date End Date Chepe Villagomez MD [address] [place] [address] PCP - General Family Practice 10/17/12 documented as of this encounter
--- OUTSIDE RECORDS SUMMARY | 2024-10-21 13:33 | XMS_ITS | Clinical Summary ---
Author Organization [facility] Address [address] [place] [address] Care Team Providers Care Band Singer Name Role Phone Yaya German MD Primary Care Provider [phone] Source Comments [facility],non-owned Affiliates and Associated Physician Practices is amultiple site organization consisting of ambulatory clinics and hospital sitesin [place], [place], [place] and [place]. This disclosure is being madepursuant to the Care Everywhere program and may not contain all information available regarding this patient. Last updated 18.[facility] [employer] Social History Tobacco Use Types Packs/Day Years Used Date Smoking Tobacco: Never Assessed Comments Unknown Sex and Gender Information Value Date Recorded Sex Assigned at Not on file Legal Sex Female 7:04 PM MANAGER OF CASE MANAGEMENT Gender Identity Not on file Sexual Orientation [...] patient's age to complete this topic Insurance [facility] Care Teams Band Singer Relationship Specialty Start Date End Date Yaya German MD [address] [place] [id number] [facility] - General 10/22/08
--- OUTSIDE RECORDS SUMMARY | 2024-10-21 13:33 | XMS_ITS | Encounter Summary ---
Author Organization [facility] Address 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 [phone] PCP - General Family Practice 10/17/12 documented as of this encounter
--- OUTSIDE RECORDS SUMMARY | 2024-10-21 13:33 | XMS_ITS | Clinical Summary ---
Author Organization [facility] Address [address] [facility] [place] [address] Care Team Providers Care Fence Setter Name Role Phone Chepe Villagomez MD Primary [...] on file Legal Sex Female 3:58 AM ALPINE GUIDE Gender Identity Not on file Sexual Orientation [...] - Respiratory Rate 14 04/24/2013 9:39 AM ALPINE GUIDE Oxygen Saturation - - Inhaled Oxygen Concentration [...] 2) 11/18/2023 INFLUENZA VACCINE (#1) [address] [place] [address] [address] [facility] Care Teams Fence Setter Relationship Specialty Start Date End Date Chepe Villagomez MD [address] [place] [address] PCP - General Family Practice 10/17/12
--- OUTSIDE RECORDS SUMMARY | 2024-10-21 13:33 | XMS_ITS | Encounter Summary ---
Author Organization [employer] Address 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 Gender Identity Not on file Sexual Orientation [...] PM CDT Narrative 10/24/2008 6:04 AM CDT [facility] [address] [place] [address] Admit Date: 10/23/2008 KARIME NARAYANAN Sex: F Admit Prov: [place] GERMAN Date: 1975 Primary Care Prov: [place] GERMAN CMRN: [id number] [id number] [facility] Ordering Prov: N/A Accession Number: [id number] Interpretation PA CHEST WITH LEFT RIBS, 10/23/08 [...] Note Iqra Grady, DO - 10/24/[address] [address] Admit Date: 10/23/2008 KARIME NARAYANAN Sex: F Admit Prov: [place] GREMAN Date: 1975 Primary Care Prov: [place] GERMAN CMRN: [id number] [facility] [id number] [facility] Ordering Prov: N/A Interpretation PA [...] girdles documented in this encounter Care Teams Assembler Carbon Brushes Relationship Specialty Start Date End Date Chepe Villagomez MD [address] [place] [address] PCP - General Family Practice 10/17/12 documented as of this encounter
--- OUTSIDE RECORDS SUMMARY | 2024-10-21 13:33 | XMS_ITS | Encounter Summary ---
Author Organization [facility] Address [address] Jensen: [place] [address] Care Team Providers Care Wire Rope Fabrication Supervisor Name Role Phone Chepe Villagomez MD Primary Care Provider Encounter Details Date Type Department Care Team (Late st Contact Info) Description 09/16/1991 Outpatient Historical Hipolito Boykin Social History Tobacco Use Types Packs/Day Years Used Date Smoking Tobacco: Never Assessed Comments Unknown Sex and Gender Information Value Date Recorded Sex Assigned at Not on file Legal Sex Female 3:58 AM SAUSAGE SMOKER Gender Identity Not on file Sexual Orientation Not on file documented as of this encounter Plan of Treatment Not on file documented as of this encounter Visit Diagnoses Not on filedocumented in this encounter Care Teams Wire Rope Fabrication Supervisor Relationship Specialty Start Date End Date Chepe Villagomez MD [address] [place] [phone] PCP - General Family Practice 10/17/12 documented as of this encounter
--- OUTSIDE RECORDS SUMMARY | 2024-10-21 13:33 | XMS_ITS | Encounter Summary ---
Author Organization [facility] Address [address] [place] [address] Care Team Providers Care Door Hanger Name Role Phone Chepe Villagomez MD Primary Care Provider [phone] Encounter Details Date Type Department Care Team (Late st Contact Info) Description 07/13/2007 Outpatient Historical [facility] [place] German MD [address] [place] [phone] Lumbago Social History Tobacco Use Types Packs/Day Years Used Date Smoking Tobacco: Never Assessed Comments Unknown Sex and Gender Information Value Date Recorded Sex Assigned at Not on file Legal Sex Female 3:58 AM GROUP DIRECTOR Gender Identity Not on file Sexual Orientation Not on file documented as of this encounter Plan of Treatment Not on file documented as of this encounter Procedures Procedure Name Priority Date/Time Associated Diagnosis Comments MRI LUMBAR WO CONTRAST Timed Study 07/13/2007 2:18 PM GROUP DIRECTOR documented in this encounter Results * MRI LUMBAR WO CONTRAST (07/13/2007 2:18 PM GROUP DIRECTOR) Anatomical Region Laterality Modality Spine Other 07/13/2007 2:18 PM GROUP DIRECTOR Narrative 07/13/2007 4:23 PM GROUP DIRECTOR [facility] [address] [address] Admit Date: 07/13/2007 KARIME ZENG Sex: F Admit Prov: [place] GERMAN Date: 1975 Primary Care Prov: [place] GERMAN CMRN: [id number] [id number] [facility] Ordering Prov: N/A Accession Number: [id number] Interpretation EXAMINATION: MRI OF LUMBAR SPINE WITHOUT [...] SMM Procedure Note Provider, Historical - 07/13/[address] [address] Admit Date: 07/13/2007 KARIME ZENG Sex: F Admit Prov: [place] GERMAN Date: 1975 Primary Care Prov: [place] GERMAN CMRN: [id number] [id number] [facility] Ordering Prov: N/A Interpretation EXAMINATION: [...] Lumbago documented in this encounter Care Teams Door Hanger Relationship Specialty Start Date End Date Chepe Villagomez MD [address] [place] [address] PCP - General Family Practice 10/17/12 documented as of this encounter
[2024-10-21 14:43] VITALS: O2SAT 99
[2024-10-21 14:44] LABS: Basophils Absolute Auto 0.1 K/mm3 (0.0-0.1); Basophils Percent Auto 0.7 % (0.2-1.2); Eosinophils Percent Auto 0.3 % (0-4.4); Hemoglobin 14.9 g/dL (12.0-15.0); Immature Granulocyte Absolute 0.12 K/mm3 (0.00-0.031); Immature Granulocyte Percent A 0.9 % (0-0.5); Lymphocytes Absolute Auto 2.84 K/mm3 (0.9-3.2); Lymphocytes Percent Auto 22.1 % (18.3-44.2); Mean Corpuscular Hemoglobin 24.9 pg (26-34); Mean Corpuscular Volume 80.3 fl (80-100); Mean Platelet Volume 8.9 fl (7.4-10.4); Monocytes Absolute Auto 0.5 K/mm3 (0.1-0.6); Monocytes Percent Auto 3.5 % (2.6-8.5); Neutrophils Absolute Auto 9.3 K/mm3 (1.3-6.7); Neutrophils Percent Auto 72.5 % (45.5-73.1); Platelet Count Result 382 k/mm3 (150-375); Red Blood Count 5.98 M/mm3 (4.2-5.4); Red Cell Distribution Width 17.1 % (11.5-14.5); White Blood Count 12.9 K/mm3 (4.5-10.0)
[2024-10-21 14:50] LABS: Alanine Aminotransferase 26 U/L (6-35); Albumin Level 4.6 g/dL (3.5-5.1); Alkaline Phosphatase 73 U/L (38-126); Anion Gap 10 mmol/L (4-12); Aspartate Amino Transferase 26 U/L (14-36); Bilirubin,Total 0.3 mg/dL (0.2-1.3); Blood Urea Nitrogen 14 mg/dL (7-17); Calcium 9.8 mg/dL (8.4-10.2); Carbon Dioxide 25 mmol/L (22-30); Chloride 106 mmol/L (98-107); Estimated CRCL calculation 107 ml/min; Estimated Glomerular Filt Rate > 60; Glucose 121 mg/dL (65-110); Lipase 116 U/L (23-300); Potassium 4.1 mmol/L (3.4-5.0); Sodium 141 mmol/L (137-145)
[2024-10-21 14:54] LABS: Prothrombin Time 13.1 Seconds (11.1-14.7)
[2024-10-21 14:55] LABS: Partial Thromboplastin Time 24.5 Seconds (22.3-36.8)
[2024-10-21 15:02] LABS: NT Pro B Type Natriuretic Pept 361 pg/mL (19.9-100); Troponin I < 0.012 ng/mL (0.000-0.034)
--- NOTE | 2024-10-21 16:07 | ED.BACK ---
HPI - Back Pain/Injury General Chief Complaint: Back Pain/Injury Stated Complaint: upper back pain Time Seen by Provider: 10/21/24 15:01 Source: patient and family Mode of arrival: ambulatory History of Present Illness HPI Narrative: 48 years old white female with history of psoriatic arthritis came to the ED complaining of neck pain posteriorly, midline upper thoracic pain, left upper back pain and left upper extremity pain started 5 days ago. 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 Pain worse with certain movement, better remaining still. Patient denies any chest pain or shortness of breath. Related Data Home Medications ?Medication ?Instructions ?Recorded ?Confirmed ?Last Taken ?Type apremilast 30 mg tablet (Otezla) 30 mg PO BID 10/23/19 07/22/24 Unknown History leflunomide 10 mg tablet 10 mg PO DAILY 02/17/21 07/22/24 Unknown History fexofenadine 180 mg tablet 180 mg PO DAILY 03/04/22 07/22/24 Unknown History (Debbie Allergy) azelastine 205.5 mcg (0.15 %) 2 spray intranasal DAILY 06/04/24 07/22/24 Unknown History nasal spray (Astepro Allergy) Allergies Allergy/AdvReac Type Severity Reaction Status Date / Time Sulfa (Sulfonamide Allergy Mild Rash Verified 10/21/24 11:22 Antibiotics) Review of Systems Review of Systems: All systems reviewed & are unremarkable except as noted in HPI and below PMFSH Past Medical History Medical History Screening for lipoid disorders Otitis media Wheezing BMI 36.0-36.9,adult Anal fissure Chronic pain Rectal Pain Screening for thyroid disorder BMI 33.0-33.9,adult BMI 29.0-29.9,adult BMI 35.0-35.9,adult BMI 37.0-37.9, adult Right hamstring muscle strain Psoriatic arthritis Asthma Recurrent sinus infections Narcolepsy History of frequent upper respiratory infection Surgical History Surgical History H/O prior ablation treatment Status post LASIK surgery of both eyes History of cholecystectomy History of tonsillectomy and adenoidectomy Social History Social History Smoking status: Former smoker Tobacco type: cigarettes Second hand tobacco smoke exposure: No Smoking end date: 05/29/91 Alcohol intake: current Substance use: current Substance use type: marijuana Other substance usage details: Medical card, edibles Do You Feel Safe in your Home?: Yes Lack of Transportation: No Lack of Food: Never True Current Housing: I Have Housing Concerned About Future Housing: No Difficulty Paying Gas/Electric Bills: No Difficulty Paying for Meds: No Currently Unemployed: No Education: Master's Degree or Higher Difficulty w/ Childcare or Family Care: No Living arrangements: with family Additional living arrangements comments: and MIL Occupation/Education: occupation 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[employer] Gender identity (if verbalized by the patient): Female Sexual Orientation (if Verbalized by the Patient): Straight or Heterosexual Spiritual care concerns: Yes Agree to blood products: Yes Exam Narrative: General appearance: Well-developed, well-nourished Skin: Normal color Head: Normocephalic, nontraumatic Eyes: Clear conjunctiva ENT: Oropharynx normal, ears normal, nose normal Neck: Supple, nontender Chest and respiratory: Airway patent, no respiratory distress, no accessory muscle use Heart: Regular rate/rhythm Abdomen: Soft, nontender, no organomegaly, quiet bowel sounds Vascular: Normal peripheral pulses, normal capillary refill. Musculoskeletal: Severe diffuse tenderness base of the neck, left upper back with light palpation and left upper chest. Patient can abduct left arm up to 70 degree. Unable to do more because of the pain. 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 TECHNICIAN is normal as tested, no gross motor deficit Course Vital Signs Vital signs: Vital Signs Temperature 36.6 C 10/21/24 11:40 Pulse Rate 91 10/21/24 11:40 Respiratory Rate 17 10/21/24 11:40 Blood Pressure 176/104 H 10/21/24 11:40 Pulse Oximetry 100 10/21/24 11:40 Temperature 36.6 C 10/21/24 11:40 Pulse Rate 78 10/21/24 16:10 Respiratory Rate 16 10/21/24 16:10 Blood Pressure 153/88 H 10/21/24 16:10 Pulse Oximetry 99 10/21/24 16:10 Oxygen Delivery Room Air 10/21/24 14:43 MDM - Back Pain/Injury MDM Narrative Medical decision making narrative: Patient presents with pain of the neck, left upper back and left upper extremity Differential diagnosis musculoskeletal pain is my concern Patient had blood workup includes CBC and CMP which showed WBC 12.9, otherwise within normal limit Chest x-ray showed no acute abnormalities Diagnosis of musculoskeletal pain Discharged on diclofenac and cyclobenzaprine The pt was discharged to home.the pt,s condition upon discharge was fair,education was provided to the pt in reference to the final impression,discharge study results,treatment,prognosis and need for follow up . Differential Diagnosis Differential diagnosis: Likely other (As above) Medical Records Attestation: I reviewed the patient's medical records. Lab Data Attestation: I reviewed the patient's lab results. 10/21/24 14:32 10/21/24 14:32 Labs: Lab Results 10/21/24 Range/Units 14:32 WBC 12.9 H (4.5-10.0) K/mm3 RBC 5.98 H (4.2-5.4) M/mm3 Hgb 14.9 (12.0-15.0) g/dL Hct 48.0 H (37.0-47.0) % MCV 80.3 (80-100) fl MCH 24.9 L (26-34) pg MCHC 31.0 L (32-36) g/dl RDW 17.1 H (11.5-14.5) % Plt Count 382 H (150-375) k/mm3 MPV 8.9 (7.4-10.4) fl Immature Gran % (Auto) 0.9 H (0-0.5) % Neut % (Auto) 72.5 (45.5-73.1) % Lymph % (Auto) 22.1 (18.3-44.2) % [place] % (Auto) 3.5 (2.6-8.5) % Eos % (Auto) 0.3 (0-4.4) % Baso % (Auto) 0.7 (0.2-1.2) % Lymph # (Auto) 2.84 (0.9-3.2) K/mm3 [place] # (Auto) 0.5 (0.1-0.6) K/mm3 Eos # (Auto) 0.0 (0-0.3) K/mm3 Baso # (Auto) 0.1 (0.0-0.1) K/mm3 Abs Immat Gran (auto) 0.12 H (0.00-0.031) K/mm3 Absolute Neuts (auto) 9.3 H (1.3-6.7) K/mm3 Absolute Nucleated RBC 0.000 (0.0-0.012) K/mm3 Nucleated RBC % 0.0 (0.0-0.2) % PT 13.1 (11.1-14.7) Seconds INR 1.0 APTT 24.5 (22.3-36.8) Seconds Sodium 141 (137-145) mmol/L Potassium 4.1 (3.4-5.0) mmol/L Chloride 106 (98-107) mmol/L Carbon Dioxide 25 (22-30) mmol/L Anion Gap 10 (4-12) mmol/L BUN 14 (7-17) mg/dL Creatinine 0.66 L (0.7-1.0) mg/dL Estim Creat Clear Calc 107 ml/min Estimated GFR > 60 (59 - ) Glucose 121 H (65-110) mg/dL Calcium 9.8 (8.4-10.2) mg/dL Total Bilirubin 0.3 (0.2-1.3) mg/dL AST 26 (14-36) U/L ALT 26 (6-35) U/L Alkaline Phosphatase 73 (38-126) U/L Troponin I < 0.012 (0.000-0.034) ng/mL NT-Pro-B Natriuret Pep 361 H (19.9-100) pg/mL Total Protein 8.0 (6.3-8.2) g/dL Albumin 4.6 (3.5-5.1) g/dL Lipase 116 (23-300) U/L Imaging Data Radiologist's impression: Impressions Chest X-Ray 10/21/24 15:31 IMPRESSION: No definite acute cardiopulmonary pathology. Critical Care Time Critical Care Time Critical Care Time: No Discharge Plan Discharge Clinical Impression: Back pain Patient Disposition: Home Condition: Stable Instructions: Back Pain (ED) Additional Instructions: Return if symptoms are worsening , call your family physician for appointment, take Tylenol as as needed for aches and pain, continue home medications. Heating pad Massage Exercise Keep left arm elevated above the level of the heart Patient Language: Uzbek Prescriptions: New diclofenac sodium 75 mg tablet,delayed release (DR/EC) 75 mg PO BID PRN (Reason: pain) Qty: 14 0RF cyclobenzaprine 10 mg tablet 10 mg PO TID PRN (Reason: muscle spasm) Qty: 20 0RF No Action Airsupra 90-80 mcg/actuation HFA aerosol inhaler 2 inh inhalation 6XD PRN (Reason: shortness of breath) Qty: 32.1 3RF Otezla 30 mg tablet 30 mg PO BID leflunomide 10 mg tablet 10 mg PO DAILY fexofenadine [Debbie Allergy] 180 mg tablet 180 mg PO DAILY albuterol sulfate 2.5 mg /3 mL (0.083 %) solution for nebulization 2.5 mg inhalation BID PRN (Reason: shortness of breath or wheezing) Qty: 180 1RF azelastine [Astepro Allergy] 205.5 mcg (0.15 %) spray,non-aerosol 2 spray intranasal DAILY Rx Instructions: administer into each nostril sumatriptan succinate 100 mg tablet 100 mg PO ONCE PRN (Reason: migraine headache) Qty: 10 0RF Rx Instructions: May repeat dose in 2 hours if not relief. Max 200mg in 24 hours sertraline 25 mg tablet See Rx Instructions .ROUTE .COMPLEX Qty: 90 1RF Dose Instruction: TAKE 1 TABLET BY MOUTH EVERY DAY Rx Instructions: TAKE 1 TABLET BY MOUTH EVERY DAY dextroamphetamine sulfate 15 mg capsule, extended release 15 mg PO DIRECTED Qty: 60 0RF Rx Instructions: Take 2 caps in the morning by mouth. Follow-up/Referrals: Chepe Villagomez MD [Primary Care Provider] -
[2024-10-21 16:10] VITALS: BP 153/88; PULSE 78; RESP 16; O2SAT 99
[2024-10-21] MEDS: KETOROLAC 30 MG/ML VIAL (*BKC) IV PUSH (16:54)
[2024-10-21] MEDS: diazePAM INJ (*CRX) 10 MG/2 ML SYRINGE 5 MG IV PUSH (16:55)
== END 2024-10-21 17:24 | disposition home or self-care (01) ==
PROVIDERS: Physician Assistant; Emergency Provider Emergency Medicine; PCP Family Medicine
DX: M54.6 Pain in thoracic spine (principal); J45.909 Unspecified asthma, uncomplicated; L40.50 Arthropathic psoriasis, unspecified; Z90.49 Acquired absence of other specified parts of digestive tract; Z87.891 Personal history of nicotine dependence; Z79.899 Other long term (current) drug therapy
CPT/HCPCS: 36415; 70498; 71045; 71275; 80053; 83690; 83880; 84484; 85025; 85610; 85730; 93005; 96374; 96375; 99284; J1885; J3360; Q9967

== ENCOUNTER 2024-11-05 09:31 | Outpatient (CLI) | payer BC, SELFPAY ==
--- OUTSIDE RECORDS SUMMARY | 2024-11-05 10:14 | XMS_ITS | Encounter Summary ---
Author Organization [employer] Address 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 Gender Identity Not on file Sexual [...] HEMATOLOGY ORDERABLES Final Result Performing Organization Address City/[facility] Co de Phone Number INTERFACE [...] HEMATOLOGY ORDERABLES Final Result Performing Organization Address City/[facility] de Phone Number INTERFACE SYSTEM Refer to [...] HEMATOLOGY ORDERABLES Final Result Performing Organization Address [facility] Phone Number INTERFACE SYSTEM Refer to [...] CHEMISTRY ORDERABLES Final Result Performing Organization Address [facility] Co de Phone Number INTERFACE [...] ORDERABLES Final Res ult Performing Organization Address [facility] de Phone Number INTERFACE SYSTEM Refer to [...] ORDERABLES Final Re sult Performing Organization Address [facility] de Phone Number INTERFACE SYSTEM Refer to [...] ORDERABLES Final Re sult Performing Organization Address [facility] Phone Number INTERFACE SYSTEM Refer to clinic/hospital department * LIPASE (09/06/2004 1:30 AM CDT) LIPASE 24 13 - 60 U/L INTERFAC E SYSTEM 09/06/2004 1:30 AM CDT Tristan Estrella MD CHEMISTRY ORDERABLES Final Res ult Performing Organization Address [facility] Number INTERFACE SYSTEM Refer to clinic/hospital department [...] ORDERABLES Final Res ult Performing Organization Address [facility] Phone Number INTERFACE SYSTEM Refer to [...] URINE ORDERABLES Final Result Performing Organization Address [facility] Phone Number INTERFACE SYSTEM Refer to clinic/hospital department * HCG QUALITATIVE, URINE (09/06/2004 1:15 AM CDT) SPECIFIC GRAVITY UA 1.025 1.001 - 1.035 INTERFACE SYSTEM HCG QUAL URINE Negative Negative INTER FACE SYSTEM 09/06/2004 1:15 AM CDT Tristan Estrella MD URINE ORDERABLES Final Result Performing Organization Address [facility] Phone Number INTERFACE SYSTEM Refer to [...] URINE ORDERABLES Final Result Performing Organization Address [facility] Phone Number INTERFACE SYSTEM Refer to clinic/hospital department documented in this encounter Visit Diagnoses Diagnosis Calculus of gallbladder with acute cholecystitis, without mention of obstruction- Primary documented in this encounter Care Teams Formulator Relationship Specialty Start Date End Date Chepe Villagomez MD [address] [place] [address] PCP - General Family Practice 10/17/12 documented as of this encounter
--- OUTSIDE RECORDS SUMMARY | 2024-11-05 10:14 | XMS_ITS | Encounter Summary ---
Author Organization [employer] Address [address] [place] [address] Care Team Providers Care Supervisor Lead Refinery Name Role Phone Chepe Villagomez MD Primary Care Provider Encounter Details Date Type Department Care Team (Latest Contact Info) Description 11/16/2004 Outpatient Historical HIS EMERGENCY ROOM WASH David Carranza MD NO ADDRESS ON FILE Andree Thomson MD [address] [facility] [place] [address] MIGRAINE NEC W/O MENTN INTRACTABLE (Primary Dx) Social History Tobacco Use Types Packs/Day Years Used Date Smoking Tobacco: Never Assessed Comments Unknown Sex and Gender Information Value Date Recorded Sex Assigned at Not on file 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 [address] PCP - General Family Practice 10/17/12 documented as of this encounter
--- OUTSIDE RECORDS SUMMARY | 2024-11-05 10:14 | XMS_ITS | Encounter Summary ---
Author Organization [employer] Address 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 [address] PCP - General Family Practice 10/17/12 documented as of this encounter
--- OUTSIDE RECORDS SUMMARY | 2024-11-05 10:14 | XMS_ITS | Clinical Summary ---
Author Organization [facility] Address [address] [place] [address] Care Team Providers Care Refractory Manager Name Role Phone Yaya German MD Primary Care Provider [phone] Source Comments [facility],non-owned Affiliates and Associated Physician Practices is amultiple site organization consisting of ambulatory clinics and hospital sitesin [place], [place], [place] and [place]. This disclosure is being madepursuant to the Care Everywhere program and may not contain all information available regarding this patient. 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 Care Teams Refractory Manager Relationship Specialty Start Date End Date Yaya German MD [address] [place] [address] [facility] - General 10/22/08
--- OUTSIDE RECORDS SUMMARY | 2024-11-05 10:15 | XMS_ITS | Encounter Summary ---
Author Organization [facility] Address [address] Jensen: [place] [address] Care Team Providers Care Entry Writer Name Role Phone Chepe Villagomez MD Primary Care Provider Encounter Details Date Type Department Care Team (Late st Contact Info) Description 12/31/1992 Outpatient Historical Hipolito Boykin Social History Tobacco Use Types Packs/Day Years Used Date Smoking Tobacco: Never Assessed Comments Unknown Sex and Gender Information Value Date Recorded Sex Assigned at Not on file Legal Sex Female 3:58 AM EQUIPMENT LEAD Gender Identity Not on file Sexual Orientation Not on file documented as of this encounter Plan of Treatment Not on file documented as of this encounter Visit Diagnoses Not on filedocumented in this encounter Care Teams Entry Writer Relationship Specialty Start Date End Date Chepe Villagomez MD [address] [place] [address] PCP - General Family Practice 10/17/12 documented as of this encounter
--- OUTSIDE RECORDS SUMMARY | 2024-11-05 10:15 | XMS_ITS | Encounter Summary ---
Author Organization [employer] Address 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 [address] PCP - General Family Practice 10/17/12 documented as of this encounter
--- OUTSIDE RECORDS SUMMARY | 2024-11-05 10:15 | XMS_ITS | Encounter Summary ---
Author Organization [employer] Address [address] 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 [address] PCP - General Family Practice 10/17/12 documented as of this encounter
--- OUTSIDE RECORDS SUMMARY | 2024-11-05 10:15 | XMS_ITS | Encounter Summary ---
Author Organization [employer] Address 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:58 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 Gender Identity Not on file [...] PM CDT Narrative 10/24/2008 6:04 AM CDT [facility] [address] [place] [address] Admit Date: 10/23/2008 KARIME NARAYANAN Sex: F Admit Prov: COLBY GERMAN Date: 1975 Primary Care Prov: COLBY GERMAN CMRN: [id number] [id number] Ordering Prov: N/A Accession Number: [id number] Interpretation PA CHEST WITH LEFT RIBS, 10/23/08 [...] Procedure Note Iqra Grady, DO - 10/24/[address] [address] Admit Date: 10/23/2008 KARIME NARAYANAN Sex: F Admit Prov: COLBY GERMAN Date: 1975 Primary Care Prov: COLBY GERMAN CMRN: [id number] [id number] [facility] Ordering Prov: N/A Interpretation PA [...] girdles documented in this encounter Care Teams Sales Agent Protective Service Relationship Specialty Start Date End Date Chepe Villagomez MD [address] [place] [address] PCP - General Family Practice 10/17/12 documented as of this encounter
--- OUTSIDE RECORDS SUMMARY | 2024-11-05 10:15 | XMS_ITS | Encounter Summary ---
Author Organization [employer] Address [address] [place] [address] Care Team Providers Care Gas Appliance Servicer Helper Name Role Phone Chepe Villagomez MD Primary Care Provider [phone] Encounter Details Date Type Department Care Team (Latest Contact Info) Description 02/21/2001 Outpatient Historical HIS MDB RADIOLOGY Yaya German MD [address] [place] [phone] Degeneration of thoracic or thoracolumbar intervertebral disc (Primary Dx) Social History Tobacco Use Types Packs/Day Years Used Date Smoking Tobacco: Never Assessed Comments Unknown Sex and Gender Information Value Date Recorded Sex Assigned at Not on file 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 [address] PCP - General Family Practice 10/17/12 documented as of this encounter
--- OUTSIDE RECORDS SUMMARY | 2024-11-05 10:15 | XMS_ITS | Encounter Summary ---
Author Organization [employer] Address [address] [place] [address] Care Team Providers Care Insole Coverer Name Role Phone Chepe Villagomez MD Primary Care Provider [phone] Encounter Details Date Type Department Care Team (Late st Contact Info) Description 07/16/2005 Outpatient Historical HIS EMERGENCY ROOM WASH Dewayne Kern MIGRAINE NOS W/O MENTN INTRACTABLE (Primary Dx) Social History Tobacco Use Types Packs/Day Years Used Date Smoking Tobacco: Never Assessed Comments Unknown Sex and Gender Information Value Date Recorded Sex Assigned at Not on file Legal Sex Female 3:58 AM RAMP AGENT Gender Identity Not on file Sexual Orientation Not on file documented as of this encounter Plan of Treatment Not on file documented as of this encounter Visit Diagnoses Diagnosis Migraine, unspecified, without mention of intractable migraine without mention of status migrainosus- Primary documented in this encounter Care Teams Insole Coverer Relationship Specialty Start Date End Date Chepe Villagomez MD [place] [address] PCP - General Family Practice 10/17/12 documented as of this encounter
--- OUTSIDE RECORDS SUMMARY | 2024-11-05 10:15 | XMS_ITS | Encounter Summary ---
Author Organization [employer] Address [address] [place] [address] Care Team Providers Care Aquarium Specialist Name Role Phone Chepe Villagomez MD Primary Care Provider [phone] Encounter Details Date Type Department Care Team (Late st Contact Info) Description 02/03/2005 Outpatient Historical HIS RADIOLOGY Yaya German MD [address] [place] [phone] CHR MAXILLARY SINUSITIS (Primary Dx) Social History Tobacco Use Types Packs/Day Years Used Date Smoking Tobacco: Never Assessed Comments Unknown Sex and Gender Information Value Date Recorded Sex Assigned at Not on file Legal Sex Female 3:58 AM NURSE ORTHOPEDIC Gender Identity Not on file Sexual Orientation Not on file documented as of this encounter Plan of Treatment Not on file documented as of this encounter Visit Diagnoses Diagnosis Chronic maxillary sinusitis- Primary documented in this encounter Care Teams Aquarium Specialist Relationship Specialty Start Date End Date Chepe Villagomez MD [address] [place] [address] PCP - General Family Practice 10/17/12 documented as of this encounter
--- OUTSIDE RECORDS SUMMARY | 2024-11-05 10:15 | XMS_ITS | Clinical Summary ---
Author Organization [employer] [facility] Address [address] [place] [address] Care Team Providers Care Professor Of Religion Name Role Phone Chepe Villagomez MD Primary [...] on file Legal Sex Female 3:58 AM BILLING CONTROL CLERK Gender Identity Not on file Sexual Orientation [...] - Respiratory Rate 14 04/24/2013 9:39 AM BILLING CONTROL CLERK Oxygen Saturation - - Inhaled Oxygen Concentration [...] 2) 11/18/2023 INFLUENZA VACCINE (#1) [address] [place] [id number] [facility] Care Teams Professor Of Religion Relationship Specialty Start Date End Date Chepe Villagomez MD [address] [place] [address] PCP - General Family Practice 10/17/12
--- OUTSIDE RECORDS SUMMARY | 2024-11-05 10:15 | XMS_ITS | Encounter Summary ---
Author Organization [facility] Address [address] [place] [address] Care Team Providers Care Appellate Court Clerk Name Role Phone Chepe Villagomez MD Primary Care Provider [phone] Encounter Details Date Type Department Care Team (Late st Contact Info) Description 07/13/2007 Outpatient Historical HIS RADIOLOGY Colby German MD [address] [place] [phone] Lumbago Social History Tobacco Use Types Packs/Day Years Used Date Smoking Tobacco: Never Assessed Comments Unknown Sex and Gender Information Value Date Recorded Sex Assigned at Not on file Legal Sex Female 3:58 AM CLIENT EXPERIENCE MANAGER Gender Identity Not on file Sexual Orientation Not on file documented as of this encounter Plan of Treatment Not on file documented as of this encounter Procedures Procedure Name Priority Date/Time Associated Diagnosis Comments MRI LUMBAR WO CONTRAST Timed Study 07/13/2007 2:18 PM CLIENT EXPERIENCE MANAGER documented in this encounter Results * MRI LUMBAR WO CONTRAST (07/13/2007 2:18 PM CLIENT EXPERIENCE MANAGER) Anatomical Region Laterality Modality Spine Other 07/13/2007 2:18 PM CLIENT EXPERIENCE MANAGER Narrative 07/13/2007 4:23 PM CLIENT EXPERIENCE MANAGER [facility] [address] [address] Admit Date: 07/13/2007 KARIME ZENG Sex: F Admit Prov: COLBY GERMAN Date: 1975 Primary Care Prov: COLBY GERMAN CMRN: [id number] [facility] [id number] IM[facility]ING SERVICES Ordering Prov: N/A Accession Number: [id number] Interpretation EXAMINATION: MRI OF LUMBAR SPINE WITHOUT [...] Procedure Note Provider, Historical - 07/13/[address] [address] Admit Date: 07/13/2007 KARIME ZENG Sex: F Admit Prov: COLBY GERMAN Date: 1975 Primary Care Prov: COLBY GERMAN CMRN: [id number] [facility] [id number] IMAGING SERVICES Ordering Prov: N/A Interpretation EXAMINATION: [...] Lumbago documented in this encounter Care Teams Appellate Court Clerk Relationship Specialty Start Date End Date Chepe Villagomez MD [address] [place] [address] PCP - General Family Practice 10/17/12 documented as of this encounter
--- OUTSIDE RECORDS SUMMARY | 2024-11-05 10:15 | XMS_ITS | Encounter Summary ---
Author Organization [employer] Address [address] [place] [address] Care Team Providers Care Emergency Medicine Medical Director Name Role Phone Chepe Villagomez MD Primary Care Provider [phone] Encounter Details Date Type Department Care Team (Late st Contact Info) Description 02/27/2001 Outpatient Historical HIS RADIOLOGY Yaya German MD [address] [place] [phone] Other and unspecified disc disorder of lumbar region (Primary Dx) Social History Tobacco Use Types Packs/Day Years Used Date Smoking Tobacco: Never Assessed Comments Unknown Sex and Gender Information Value Date Recorded Sex Assigned at Not on file 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 [address] PCP - General Family Practice 10/17/12 documented as of this encounter
--- OUTSIDE RECORDS SUMMARY | 2024-11-05 10:15 | XMS_ITS | Encounter Summary ---
Author Organization [employer] Address [address] [place] [address] Care Team Providers Care Facility Designer Name Role Phone Chepe Villagomez MD Primary Care Provider [phone] Encounter Details Date Type Department Care Team (Late st Contact Info) Description 07/11/2007 Outpatient Historical HIS RADIOLOGY Yaya German MD [address] [place] [phone] Other, [facility] NO ADDRESS ON FILE Pain in Joint, Forearm Social History Tobacco Use Types Packs/Day Years Used Date Smoking Tobacco: Never Assessed Comments Unknown Sex and Gender Information Value Date Recorded Sex Assigned at Not on file Legal Sex Female 3:58 AM NETWORK ANNOUNCER Gender Identity Not on file Sexual Orientation Not on file documented as of this encounter Plan of Treatment Not on file documented as of this encounter Visit Diagnoses Diagnosis Pain in joint, forearm documented in this encounter Care Teams Facility Designer Relationship Specialty Start Date End Date Chepe Villagomez MD [address] [place] [address] PCP - General Family Practice 10/17/12 documented as of this encounter
--- OUTSIDE RECORDS SUMMARY | 2024-11-05 10:15 | XMS_ITS | Encounter Summary ---
Author Organization [employer] Address [address] [place] [address] Care Team Providers Care Yarn Washer Name Role Phone Chepe Villagomez MD Primary [...] on file Legal Sex Female 3:58 AM GLASS SELECTOR Gender Identity Not on file Sexual Orientation Not on file documented as of this encounter Plan of Treatment Not on file documented as of this encounter Visit Diagnoses Diagnosis Migraine, unspecified, without mention of intractable migraine without mention of status migrainosus- Primary documented in this encounter Care Teams Yarn Washer Relationship Specialty Start Date End Date Chepe Villagomez MD [address] [place] [address] PCP - General Family Practice 10/17/12 documented as of this encounter
--- OUTSIDE RECORDS SUMMARY | 2024-11-05 10:15 | XMS_ITS | Encounter Summary ---
Author Organization [facility] Address [address] [place] [address] Care Team Providers Care Milk Pasteurizer Name Role Phone Chepe Villagomez MD Primary Care Provider [phone] Encounter Details Date Type Department Care Team (Latest Contact Info) Description 05/10/2006 Outpatient Historical [facility] RADIOLOGY Yaya German MD [address] [place] [address] Displacement of Lumbar Intervertebral Disc without Myelopathy (Primary Dx) Social History Tobacco Use Types Packs/Day Years Used Date Smoking Tobacco: Never Assessed Comments Unknown Sex and Gender Information Value Date Recorded Sex Assigned at Not on file Legal Sex Female 3:58 AM ASPHALT ROLLER PERSON Gender Identity Not on file Sexual Orientation Not on file documented as of this encounter Plan of Treatment Not on file documented as of this encounter Visit Diagnoses Diagnosis Displacement of lumbar intervertebral disc without myelopathy- Primary documented in this encounter Care Teams Milk Pasteurizer Relationship Specialty Start Date End Date Chepe Villagomez MD [address] [place] [address] PCP - General Family Practice 10/17/12 documented as of this encounter
== END 2024-11-05 09:32 | disposition home or self-care (01) ==
LOC: ANHLAB 09:34
PROVIDERS: PCP Family Medicine; Visit Provider Physician Assistant
DX: D64.9 Anemia, unspecified (principal)
CPT/HCPCS: 36415; 82728

== ENCOUNTER 2025-01-06 10:18 | Outpatient (CLI) | payer BC, OTHER, SELFPAY ==
--- OUTSIDE RECORDS SUMMARY | 2025-01-06 10:28 | XMS_ITS | Encounter Summary ---
Author Organization [facility] Address [address] [place] [address] Care Team Providers Care Formal Service Waiter Name Role Phone Chepe Villagomez MD Primary Care Provider [phone] Encounter Details Date Type Department Care Team (Latest Contact Info) Description 02/21/2001 Outpatient Historical [facility] MDB RADIOLOGY Yaya German MD [address] [place] [phone] Degeneration of thoracic or thoracolumbar intervertebral disc (Primary Dx) Social History Tobacco Use Types Packs/Day Years Used Date Smoking Tobacco: Never Assessed Comments Unknown Sex and Gender Information Value Date Recorded Sex Assigned at Not on file Legal Sex Female 3:58 AM 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 [address] PCP - General Family Practice 10/17/12 documented as of this encounter
--- OUTSIDE RECORDS SUMMARY | 2025-01-06 10:28 | XMS_ITS | Clinical Summary ---
Author Organization [facility] Address [address] [facility] [place] [address] Care Team Providers Care Computer Numeric Control Setter Name Role Phone Yaya German MD Primary Care Provider [phone] Source Comments [facility],non-owned Affiliates and Associated Physician Practices is amultiple site organization consisting of ambulatory clinics and hospital sitesin [place], [place], [place] and [place]. This disclosure is being madepursuant to the Care Everywhere program and may not contain all information available regarding this patient. Last updated 18.[facility] Familiar Social History Tobacco Use Types Packs/Day Years Used Date Smoking Tobacco: Never Assessed Comments Unknown Sex and Gender Information Value Date Recorded Sex Assigned at Not on file Legal Sex Female 7:04 PM CLOTH FRAMER Gender Identity Not on file Sexual Orientation [...] SCREENING 1973 LIPID TESTING 1973 MAMMOGRAM 1973 HIV SCREENING 1988 HEPATITIS C SCREENING 11/13/1991 DTAP/TDAP/TD VACCINES (1 - Tdap) 1992 HEPATITIS B VACCINE (1 of 3 - 19+ 3-dose series) 1992 PAP SMEAR 1994 PNEUMOCOCCAL VACCINE 50+ (1 of 1 - PCV) 11/18/2023 ZOSTER VACCINE (1 of 2) 11/18/2023 COVID-19 VACCINE ( - 2023-2 5 season) 2024 DEPRESSION SCREENING 05/29/2024 INFLUENZA VACCINE (#1) 2025 HIB VACCINE Aged Out No longer [...] patient's age to complete this topic Insurance [facility] Care Teams Computer Numeric Control Setter Relationship Specialty Start Date End Date Yaya German MD [address] [place] [address] [facility] - General 10/22/08
--- OUTSIDE RECORDS SUMMARY | 2025-01-06 10:28 | XMS_ITS | Encounter Summary ---
Author Organization [facility] Address [address] [place] [address] Care Team Providers Care Histology Supervisor Name Role Phone Chepe Villagomez MD Primary Care Provider [phone] Encounter Details Date Type Department Care Team (Latest Contact Info) Description 09/06/2004 Inpatient Historical [facility] INPATIENT IN BED Yaya German MD [address] [place] [address] CHOLELITH W ACUTE GB DIS-NO OBSTR (Primary Dx) Social History Tobacco Use Types Packs/Day Years Used Date Smoking Tobacco: Never Assessed Comments Unknown Sex and Gender Information Value Date Recorded Sex Assigned at Not on file Legal Sex Female 3:58 AM PRINCIPAL HARDWARE ARCHITECT Gender Identity Not on file Sexual Orientation [...] HEMATOLOGY ORDERABLES Final Result Performing Organization Address [facility] Co de Phone Number INTERFACE [...] HEMATOLOGY ORDERABLES Final Result Performing Organization Address [facility] de Phone Number INTERFACE SYSTEM [...] HEMATOLOGY ORDERABLES Final Result Performing Organization Address [facility] Phone Number INTERFACE SYSTEM Refer [...] CHEMISTRY ORDERABLES Final Result Performing Organization Address [facility] Co de Phone Number INTERFACE [...] ORDERABLES Final Res ult Performing Organization Address [facility] de Phone Number INTERFACE SYSTEM [...] ORDERABLES Final Re sult Performing Organization Address [facility] de Phone Number INTERFACE SYSTEM [...] ORDERABLES Final Re sult Performing Organization Address [facility] Phone Number INTERFACE SYSTEM Refer to clinic/hospital department * LIPASE (09/06/2004 1:30 AM CDT) LIPASE 24 13 - 60 U/L INTERFAC E SYSTEM 09/06/2004 1:30 AM CDT Tristan Estrella MD CHEMISTRY ORDERABLES Final Res ult Performing Organization Address [facility] Number INTERFACE SYSTEM Refer to [...] ORDERABLES Final Res ult Performing Organization Address [facility] Phone Number INTERFACE SYSTEM Refer [...] URINE ORDERABLES Final Result Performing Organization Address [facility] Phone Number INTERFACE SYSTEM Refer to clinic/hospital department * HCG QUALITATIVE, URINE (09/06/2004 1:15 AM CDT) SPECIFIC GRAVITY UA 1.025 1.001 - 1.035 INTERFACE SYSTEM HCG QUAL URINE Negative Negative INTER FACE SYSTEM 09/06/2004 1:15 AM CDT Tristan Estrella MD URINE ORDERABLES Final Result Performing Organization Address [facility] Phone Number INTERFACE SYSTEM Refer to [...] URINE ORDERABLES Final Result Performing Organization Address [facility] Phone Number INTERFACE SYSTEM Refer to clinic/hospital department documented in this encounter Visit Diagnoses Diagnosis Calculus of gallbladder with acute cholecystitis, without mention of obstruction- Primary documented in this encounter Care Teams Histology Supervisor Relationship Specialty Start Date End Date Chepe Villagomez MD [address] [place] [address] PCP - General Family Practice 10/17/12 documented as of this encounter
--- OUTSIDE RECORDS SUMMARY | 2025-01-06 10:28 | XMS_ITS | Encounter Summary ---
Author Organization [facility] Address [address] [place] [address] Care Team Providers Care Pain Coordinator Name Role Phone Chepe Villagomez MD Primary Care Provider [phone] Encounter Details Date Type Department Care Team (Late st Contact Info) Description 11/16/2004 Emergency [facility] EMERGENCY ROOM WASH David Carranza MD NO ADDRESS ON FILE Andree Thomson MD [address] [facility] [place] [address] MIGRAINE NEC W/O MENTN INTRACTABLE (Primary Dx) Social History Tobacco Use Types Packs/Day Years Used Date Smoking Tobacco: Never Assessed Comments Unknown Sex and Gender Information Value Date Recorded Sex Assigned at Not on file Legal Sex Female 3:58 AM DRAWBENCH OPERATOR Gender Identity Not on file Sexual Orientation Not on file documented as of this encounter Plan of Treatment Not on file documented as of this encounter Visit Diagnoses Diagnosis Other forms of migraine, without mention of intractable migraine without mention of status migrainosus- Primary documented in this encounter Care Teams Pain Coordinator Relationship Specialty Start Date End Date Chepe Villagomez MD [address] [place] [address] PCP - General Family Practice 10/17/12 documented as of this encounter
--- OUTSIDE RECORDS SUMMARY | 2025-01-06 10:28 | XMS_ITS | Encounter Summary ---
Author Organization [facility] Address [address] [place] [address] Care Team Providers Care Audit Tech Name Role Phone Chepe Villagomez MD Primary Care Provider [phone] Encounter Details Date Type Department Care Team (Latest Contact Info) Description 09/23/2004 Outpatient Historical [facility] OBSERVATION IN BED Yousif Mckeon MD [address] [address] CHOLELITH W CHOLECYS NEC (Primary Dx) Social History Tobacco Use Types Packs/Day Years Used Date Smoking Tobacco: Never Assessed Comments Unknown Sex and Gender Information Value Date Recorded Sex Assigned at Not on file Legal Sex Female 3:58 AM ZIPPER SETTER LOCKSTITCH Gender Identity Not on file Sexual Orientation Not on file documented as of this encounter Plan of Treatment Not on file documented as of this encounter Visit Diagnoses Diagnosis Calculus of gallbladder with other cholecystitis, without mention of obstruction- Primary documented in this encounter Care Teams Audit Tech Relationship Specialty Start Date End Date Chepe Villagomez MD [address] [place] [address] PCP - General Family Practice 10/17/12 documented as of this encounter
--- OUTSIDE RECORDS SUMMARY | 2025-01-06 10:28 | XMS_ITS | Encounter Summary ---
Author Organization [facility] Address [address] Jensen: [place] [address] Care Team Providers Care Director Graphics Name Role Phone Chepe Villagomez MD Primary Care Provider Encounter Details Date Type Department Care Team (Late st Contact Info) Description 12/31/1992 Outpatient Historical Hipolito Boykin Social History Tobacco Use Types Packs/Day Years Used Date Smoking Tobacco: Never Assessed Comments Unknown Sex and Gender Information Value Date Recorded Sex Assigned at Not on file Legal Sex Female 3:58 AM SADDLE CUTTER Gender Identity Not on file Sexual Orientation Not on file documented as of this encounter Plan of Treatment Not on file documented as of this encounter Visit Diagnoses Not on filedocumented in this encounter Care Teams Director Graphics Relationship Specialty Start Date End Date Chepe Villagomez MD [address] [place] [phone] PCP - General Family Practice 10/17/12 documented as of this encounter
--- OUTSIDE RECORDS SUMMARY | 2025-01-06 10:28 | XMS_ITS ---
Author Organization [facility] Address [address] [place], [place] [address] Care Team Providers Care Towel Stretcher Name Role Phone Chepe Villagomez Primary Care Provider Denise Melchor Unavailable [phone] REASON FOR VISIT Enbrel PA - [facility] Encounters Encounter Location Date Provider Diagnosis [facility] [address], [address] [place], [place] [id number] 01/03/2025 Denise Kee PLAN OF TREATMENT Next Appt Details Provider Name:Dayna Page, 03/28/2025 11:10:00 AM, [address], [address], [place], [place], [id number],
--- OUTSIDE RECORDS SUMMARY | 2025-01-06 10:28 | XMS_ITS | Encounter Summary ---
Author Organization [employer] Address [address] 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 [address] PCP - General Family Practice 10/17/12 documented as of this encounter
--- OUTSIDE RECORDS SUMMARY | 2025-01-06 10:28 | XMS_ITS | Encounter Summary ---
Author Organization [facility] Address 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 [address] PCP - General Family Practice 10/17/12 documented as of this encounter
--- OUTSIDE RECORDS SUMMARY | 2025-01-06 10:29 | XMS_ITS ---
Author Organization [facility] Address [address] [place], [place] [address] Care Team Providers Care Manager Outreach Name Role Phone Chepe Villagomez Primary Care Provider Denise Melchor [phone] MEDICATIONS Medication SIG (Take, Route, Fr equency, Duration) Notes Start Date End Date Status Enbrel SureClick 50 mg/mL 50mg subcutaneously once a week for 28 days 01/02/2025 Active Encounters Encounter Location Date Provider Diagnosis [facility] [address], [address] [place], [place] [id number] 01/02/2025 Denise Kee PLAN OF TREATMENT Medication Medication Name Sig Start Date Stop Date Notes Enbrel SureClick 50 mg/mL 50mg subcutane ously once a week for 28 days 01/02/2025 Next Appt Details Provider Name:Dayna Page, 03/28/2025 11:10:00 AM, [address], [address], [place], [place], [id number],
--- OUTSIDE RECORDS SUMMARY | 2025-01-06 10:30 | XMS_ITS | Encounter Summary ---
Author Organization [employer] Address 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 [phone] PCP - General Family Practice 10/17/12 documented as of this encounter
--- OUTSIDE RECORDS SUMMARY | 2025-01-06 10:30 | XMS_ITS | Encounter Summary ---
Author Organization [employer] Address 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 [address] PCP - General Family Practice 10/17/12 documented as of this encounter
--- OUTSIDE RECORDS SUMMARY | 2025-01-06 10:30 | XMS_ITS | Encounter Summary ---
Author Organization [employer] Address 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 [phone] PCP - General Family Practice 10/17/12 documented as of this encounter
--- OUTSIDE RECORDS SUMMARY | 2025-01-06 10:30 | XMS_ITS | Encounter Summary ---
Author Organization [employer] Address 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 [address] PCP - General Family Practice 10/17/12 documented as of this encounter
--- OUTSIDE RECORDS SUMMARY | 2025-01-06 10:30 | XMS_ITS | Encounter Summary ---
Author Organization [facility] Address 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 Gender Identity Not on file Sexual [...] PM CDT Narrative 10/24/2008 6:04 AM CDT [facility] [address] [place] [address] Admit Date: 10/23/2008 KARIME NARAYANAN Sex: F Admit Prov: COLBY GERMAN Date: 1975 Primary Care Prov: COLBY GERMAN CMRN: [id number] Room: [facility]: [id number] IMAGING SERVICES Ordering Prov: N/A Accession Number: [id number] Interpretation PA CHEST WITH LEFT RIBS, 10/23/08 [...] Procedure Note Iqra Grady, DO - 10/24/[address] [address] Admit Date: 10/23/2008 KARIME NARAYANAN Sex: F Admit Prov: COLBY GERMAN Date: 1975 Primary Care Prov: COLBY GERMAN CMRN: [id number] Room: [facility]: [id number] IMAGING SERVICES Ordering Prov: N/A Interpretation PA [...] girdles documented in this encounter Care Teams Industrial Roofer Relationship Specialty Start Date End Date Chepe Villagomez MD [address] [place] [address] PCP - General Family Practice 10/17/12 documented as of this encounter
--- OUTSIDE RECORDS SUMMARY | 2025-01-06 10:30 | XMS_ITS | Encounter Summary ---
Author Organization [employer] Address 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 [address] PCP - General Family Practice 10/17/12 documented as of this encounter
--- OUTSIDE RECORDS SUMMARY | 2025-01-06 10:30 | XMS_ITS ---
Author Organization [employer] [facility] [employer] Address [address] [facility] Arabella Moira [facility] [address] [place], [place] [id number] Care Team Providers Care Aerial Photographer Name Role Phone Chepe Villagomez Primary Care Provider Denise Melchor Unavailable [phone] ALLERGIES Allergen (clinical drug ingredient) Drug/Non Drug Allergy documented on EMR Reaction Allergy Type Onset Date Status sulfa (uncoded) Unknown Allergy Acti ve RESULTS Component Value Reference Range Notes CBC With Differential/Platel et Reviewed date:01/01/2025 08:06:27 PM Interpretation: Performing Lab:[facility], [address] [facility], [place], Phone - [phone], Director - Riciman Notes/Report: WBC 9.1 3.4-10.8 x10E3/uL RBC 5.10 3.77-5.28 x10E6/uL Hemoglobin 13.1 11.1-15.9 g/dL Hematocrit 42.0 34.0-46.6 % MCV 82 79-97 fL MCH 25.7 26.6-33.0 pg MCHC 31.2 31.5-35.7 g/dL RDW 15.6 11.7-15.4 % Platelets 331 150-450 x10E3/uL Neutrophils 53 Not Estab. % Lymphs 37 Not Estab. % Monocytes 7 Not Estab. % Eos 2 Not Estab. % Basos 1 Not Estab. % Immature Cells Neutrophils (Absolute) 4.8 1.4-7.0 x10E3/uL Lymphs (Absolute) 3.4 0.7-3.1 x10E3/uL Monocytes(Absolute) 0.6 0.1-0.9 x10E3/uL Eos (Absolute) 0.2 0.0-0.4 x10E3/uL Baso (Absolute) 0.1 0.0-0.2 x10E3/uL Immature Granulocytes 0 Not Estab. % Immature Grans (Abs) 0.0 0.0-0.1 x10E3/uL NRBC Hematology Comments: Sed Rate - Westergren Reviewed date:01/01/2025 08:06:08 PM Interpretation: Performing Lab:[facility] [place], [address] [place] [address], Phone - [phone], Director - [facility] Notes/Report: Sedimentation Rate-Westergren 36 0-40 mm/hr C-Reactive Protein, Quant Reviewed date:01/01/2025 08:06:19 PM Interpretation: Performing Lab:[facility] [place], [address] [place] [address], Phone - [phone], Director - [facility] Notes/Report: C-Reactive Protein, Quant 15 0-10 mg/L Comp. Metabolic Panel (14) Reviewed date:01/01/2025 08:06:14 PM Interpretation: Performing Lab:[facility] [address], Phone - [phone], Director - [facility] Notes/Report: Glucose 72 70-99 mg/dL BUN 13 6-24 mg/dL Creatinine 0.75 0.57-1.00 mg/dL eGFR 96 >59 mL/min/1.73 BUN/Creatinine Ratio 17 9-23 Sodium 138 134-144 mmol/L Potassium 4.2 3.5-5.2 mmol/L Chloride 103 96-106 mmol/L Carbon Dioxide, Total 22 20-29 mmol/L Calcium 9.0 8.7-10.2 mg/dL Protein, Total 6.5 6.0-8.5 g/dL Albumin 4.0 3.8-4.9 g/dL Globulin, Total 2.5 1.5-4.5 g/dL Bilirubin, Total 0.3 0.0-1.2 mg/dL Alkaline Phosphatase 68 44-121 IU/L AST (SGOT) 16 0-40 IU/L ALT (SGPT) 16 0-32 IU/L QUANTIFERON(R)-TB GOLD PLUS, 1 TUBE Reviewed date:01/02/2025 10:14:23 AM Interpretation: Performing Lab:[facility] [place], [address] [facility], Phone - [phone], Director - Karthik Notes/Report: QuantiFERON Incubation Incubation performed. QuantiFERON-TB Gold Plus Negative Negative No response to M tuberculosis antigens detected. Infection with M tuberculosis is unlikely, but high risk individuals should be considered for additional testing (ATS/IDSA/CDC Clinical Practice Guidelines, 2017). The reference range is an Antigen minus Nil result of <0.35 IU/mL. Chemiluminescence immunoassay methodology QuantiFERON Criteria QuantiFERON-TB Gold Plus is a qualitative indirect test for M tuberculosis infection (including disease) and is intended for use in conjunction with risk assessment, radiography, and other medical and diagnostic evaluations. The QuantiFERON-TB Gold Plus result is determined by subtracting the Nil value from either TB antigen (Ag) value. The Mitogen tube serves as a control for the test. QuantiFERON TB1 Ag Value 0.06 QuantiFERON TB2 Ag Value 0.06 QuantiFERON Nil Value 0.06 QuantiFERON Mitogen Value >10.00 Acute Hepatitis Reviewed date:01/01/2025 08:05:57 PM Interpretation: Performing Lab:[facility] [place], [address] [facility], [place], Phone - [phone], Director - Karthik Notes/Report: Hep A Ab, IgM Negative Negative A negative anti-HAV IgM result suggests no recent or current HAV infection. HBsAg Screen Negative Negative Hep B Core Ab, IgM Negative Negative HCV Ab Non Reactive Non Reactive Interpretation: Not infected with HCV unless early or acute infection is suspected (which may be delayed in an immunocompromised individual), or other evidence exists to indicate HCV infection. REASON FOR VISIT 3 mo f/u MEDICATIONS Medication SIG (Take, Route, Frequency, Duration) Notes Start Date End Date Status albuterol 2.5 mg/3 mL (0.083%) 3 mL by nebulizer every 6 hours Active ergocalciferol 50,000 intl units 1 cap(s) orally ONCE A WEEK Active predniSONE 5 mg 6 tablets for 2 days then decrease by 1 tablet every 2 days until mary ellen orally once a day -PRN for 12 days 09/16/2024 Not-Taking Zoloft 20 mg/mL 2.5 mL orally once a day Active dextroamphetamine 15 mg 1 cap(s) orally once a day (in the morning) Active leflunomide 20 mg 1 tab(s) orally once a day Active Ventolin HFA 90 mcg/inh 2 puff(s) inhale d every 6 hours Active Airsupra 90 mcg-80 mcg/inh 2 INH inhaled 4 times a day Active Debbie Active Imitrex 100 mg 1 tab(s) orally once Active Otezla 30 mg 1 tab(s) orally 2 times a day for 30 days Active VITAL SIGNS BMI 36.63 kg/m2 12/30/2024 Blood pressure systolic 151 mm Hg 12/31/19 25 Blood pressure diastolic 89 mm Hg 025 Heart Rate 75 /min 12/30/2024 Height 66 in 12/30/2024 Weight 227 lbs 12/30/2024 Encounters Encounter Location Date Provider Diagnosis [facility] 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 Off NSAIDs due to GIB. Check labs. Having more pain- discussed risk/benefit of TNF's- if Hep panel and QFN negative, look into benefits. 12/30/2024 Degeneration of intervertebral disc of lumbar region with discogenic back pain (ICD-10 - M51.360) PsA- on Otezla and LEF. Off NSAIDs due to GIB. Check labs. Having more pain- discussed risk/benefit of TNF's- if Hep panel and QFN negative, look into benefits. 12/30/2024 Other rat exterminator (current) drug therapy (ICD-10 - Z79.899) PsA- on Otezla and LEF. Off NSAIDs due to GIB. Check labs. Having more pain- discussed risk/benefit of TNF's- if Hep panel and QFN negative, look into benefits. 12/30/2024 Encounter for screening for respiratory tuberculosis (ICD-10 - Z11.1) PsA- on Otezla and LEF. Off NSAIDs due to GIB. Check labs. Having more pain- discussed risk/benefit of TNF's- if Hep panel and QFN negative, look into benefits. 12/30/2024 Encounter for other specified special examinations (ICD-10 - Z01.89) PsA- on Otezla and LEF. Off NSAIDs due to GIB. Check labs. Having more pain- discussed risk/benefit of TNF's- if Hep panel and QFN negative, look into benefits. 12/30/2024 Vitamin D deficiency (ICD-10 - E55.9) PsA- on Otezla and LEF. Off NSAIDs due to GIB. Check labs. Having more pain- discussed risk/benefit of TNF's- if Hep panel and QFN negative, look into benefits. PLAN OF TREATMENT Medication Medication Name Sig Start Date Stop Date Notes albuterol 2.5 mg/3 mL (0.083%) 3 mL by n ebulizer every 6 hours ergocalciferol 50,000 intl units 1 cap(s ) orally ONCE A WEEK Zoloft 20 mg/mL 2.5 mL orally once a day dextroamphetamine 15 mg 1 cap(s) orally once a day (in the morning) leflunomide 20 mg 1 tab(s) orally once a day Ventolin HFA 90 mcg/inh 2 puff(s) inhale d every 6 hours Airsupra 90 mcg-80 mcg/inh 2 INH inhaled 4 times a day Debbie Imitrex 100 mg 1 tab(s) orally once Otezla 30 mg 1 tab(s) orally 2 ti mes a day for 30 days Next Appt Details Follow Up: 3 Months Dayna, Reason: Provider Name:Dayna Page, 03/28/2025 11:10:00 AM, [address] [facility], [address], [place], [place], [id number], Progress Notes * Examination Category Sub-Category Detail Notes Category Not es Rheumatology Cervical Spine normal range of motion Lumbar spine: normal forward and l ateral bending Thoracic Spine: normal Sacroiliac: normal Fibromyalgia Tender Points: none General Constitutional: No acute distress HEENT: PERRLA, Neck supple, Normal sclerae and [...] Exam Shoulders No swelling. No tenderness. NROM. Right hand fullness Elbows No swelling. No tend erness. NROM. Wrists left fullness Hips No tenderness, deshawn l ROM, no instability or deformity Knees No swelling, no tend erness, NROM. No instability or deformity Ankles No swelling, no tend erness, NROM., No instability or deformity. All MCPs left fullness All PIPs No swelling, no tend erness, no deformity unless noted below. All DIPs No swelling, no tend erness, no deformity unless noted below. All MTPs No swelling, no tend erness, NROM, no deformity unless noted below. History and Physical Notes * HPI (History of Present Illness) Category Sub-Category Detail Notes Category Not es Rheumatology Joint pain Having more achy pain/stiffness- nicole her hands. 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 Had several infections this summer- URT, UTI. Also had left frozen shoulder. Joint swelling Fever Dyspnea/SOB Cough Lymphadenopathy Chills fatigue morning stiffness 30-60 minutes myalgias infection dry eyes dry mouth Raynaud's/ dicoloration of fingers muscle weakness digital ulcerations rash dysphagia photosensitivity Back pain History of gout Headaches Psoriasis Oral sores Iritis, conjuctivitis, uveiitis tendinitis Numbness or tingling Family History of Rheumatic Disease Alopecia chest pain miscarriage Subuctaneous nodules Physical Examination Category Sub-Category Detail Notes Section Note s MDHAQ Summary Function (0-10):: 0 Pain (0-10):: 1.5 Patient Global Assessment of Disease Activity (0 -10):: 3 RAPID3 Score (0-30):: 4.5 Physician Global Assessment of Disease Activity (0-10):: 2 Prognosis Very Good w/tx Erosive Damage No
--- OUTSIDE RECORDS SUMMARY | 2025-01-06 10:30 | XMS_ITS | Clinical Summary ---
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 [address] PCP - General Family Practice 10/17/12
--- OUTSIDE RECORDS SUMMARY | 2025-01-06 10:30 | XMS_ITS | Encounter Summary ---
Author Organization [facility] Address 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 Gender Identity Not on file Sexual Orientation Not on file documented as of this encounter Plan of Treatment Not on file documented as of this encounter Procedures Procedure Name Priority Date/Time Associated Diagnosis Comments MRI LUMBAR WO CONTRAST Timed Study 07/13/2007 2:18 PM AUTOMOBILE DESIGNER documented in this encounter Results * MRI LUMBAR WO CONTRAST (07/13/2007 2:18 PM AUTOMOBILE DESIGNER) Anatomical Region Laterality Modality Spine Other 07/13/2007 2:18 PM AUTOMOBILE DESIGNER Narrative 07/13/2007 4:23 PM AUTOMOBILE DESIGNER [facility] [address] [address] Admit Date: 07/13/2007 KARIME ZENG Sex: F Admit Prov: COLBY GERMAN Date: 1975 Primary Care Prov: COLBY GERMAN CMRN: [id number] [id number] [facility] Ordering Prov: N/A Accession Number: [id number] Interpretation EXAMINATION: MRI OF LUMBAR SPINE WITHOUT [...] SMM Procedure Note Provider, Historical - 07/13/[address] [address] Admit Date: 07/13/2007 KARIME ZENG Sex: F Admit Prov: COLBY GERMAN Date: 1975 Primary Care Prov: COLBY GERMAN CMRN: [id number] [id number] [facility] Ordering Prov: N/A Interpretation EXAMINATION: [...] Lumbago documented in this encounter Care Teams Catering Coordinator Relationship Specialty Start Date End Date Chepe Villagomez MD [address] [place] [address] PCP - General Family Practice 10/17/12 documented as of this encounter
--- OUTSIDE RECORDS SUMMARY | 2025-01-06 10:30 | XMS_ITS | Encounter Summary ---
Author Organization [employer] Address 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 [address] PCP - General Family Practice 10/17/12 documented as of this encounter
--- NOTE | 2025-01-06 11:30 | NEURO_ITS ---
Impression: # Complains of numbness of hands ? # Bilateral Ulnar Neuropathy, right more than the left ? #mild right sensory Carpal Tunnel Syndrome. ? # Normal Needle/EMG exam Nerve Conduction Studies ?Stim Site NR Peak (ms) P-T Amp (?V) Site1 Site2 Delta-P (ms) Dist (cm) Red (m/s) Left Median Anti Sensory (2-3nd Digit) Wrist ? 3.1 53.4 Wrist 2-3nd Digit 3.1 14.0 45 Wrist ? 3.0 56.8 Wrist 2-3nd Digit 3.1 14.0 45 Right Median Anti Sensory (2-3nd Digit) Wrist ? 3.9 33.9 Wrist 2-3nd Digit 3.9 14.0 36 Wrist ? 4.0 24.8 Wrist 2-3nd Digit 3.9 14.0 36 Left Radial Anti Sensory (Base 1st Digit) Wrist ? 2.1 17.9 Wrist Base 1st Digit 2.1 0.0 Right Radial Anti Sensory (Base 1st Digit) Wrist ? 2.1 29.3 Wrist Base 1st Digit 2.1 0.0 Left Ulnar Anti Sensory (5th Digit) Wrist ? 2.6 72.4 Wrist 5th Digit 2.6 14.0 54 Right Ulnar Anti Sensory (5th Digit) Wrist ? 2.4 48.7 Wrist 5th Digit 2.4 14.0 58 ?Stim Site NR Onset (ms) O-P Amp (mV) Site1 Site2 Delta-0 (ms) Dist (cm) Red (m/s) Left Median Motor (Abd Poll Brev) Wrist ? 3.1 4.1 Elbow Wrist 4.9 29.0 59 Elbow ? 8.0 3.1 Right Median Motor (Abd Poll Brev) Wrist ? 3.8 3.3 Elbow Wrist 5.7 29.0 51 Elbow ? 9.5 6.3 Left Ulnar Motor (Abd Dig Minimi) Wrist ? 2.7 8.8 A Elbow Wrist 5.5 30.0 55 A Elbow ? 8.2 7.3 B Elbow Wrist 3.7 23.0 62 B Elbow ? 6.4 4.4 Right Ulnar Motor (Abd Dig Minimi) Wrist ? 2.7 6.7 A Elbow Wrist 5.7 28.0 49 A Elbow ? 8.4 5.8 B Elbow Wrist 4.3 20.0 47 B Elbow ? 7.0 5.0 Electromyography ?Side Muscle Nerve Root Ins Act Fibs Amp Dur Recrt Comment Right 1stDorInt Ulnar C8-T1 Nml Nml Nml Nml Nml Right Ext Indicis Radial (Post Int) C7-8 Nml Nml Nml Nml Nml Right Ext Digitorum Radial (Post Int) C7-8 Nml Nml Nml Nml Nml Right BrachioRad Radial C5-6 Nml Nml Nml Nml Nml Right PronatorTeres Median C6-7 Nml Nml Nml Nml Nml Right Abd Poll Brev Median C8-T1 Nml Nml Nml Nml Nml Right ABD Dig Min Ulnar C8-T1 Nml Nml Nml Nml Nml Right FlexPolLong Median (Ant Int) C7-8 Nml Nml Nml Nml Nml Right Abd Poll Long Radial (Post Int) C7-8 Nml Nml Nml Nml Nml Left 1stDorInt Ulnar C8-T1 Nml Nml Nml Nml Nml Left Ext Indicis Radial (Post Int) C7-8 Nml Nml Nml Nml Nml Left Ext Digitorum Radial (Post Int) C7-8 Nml Nml Nml Nml Nml Left BrachioRad Radial C5-6 Nml Nml Nml Nml Nml Left PronatorTeres Median C6-7 Nml Nml Nml Nml Nml Left Abd Poll Brev Median C8-T1 Nml Nml Nml Nml Nml Left ABD Dig Min Ulnar C8-T1 Nml Nml Nml Nml Nml Left FlexPolLong Median (Ant Int) C7-8 Nml Nml Nml Nml Nml Left Abd Poll Long Radial (Post Int) C7-8 Nml Nml Nml Nml Nml
== END 2025-01-06 10:19 | disposition home or self-care (01) ==
LOC: ANHNEURO 10:21
PROVIDERS: PCP Family Medicine; Visit Provider Nurse Practitioner Adult Health
DX: G56.23 Lesion of ulnar nerve, bilateral upper limbs (principal); G56.01 Carpal tunnel syndrome, right upper limb
CPT/HCPCS: 95886; 95911